=== PATIENT | male | born 1940 | race Caucasian/White ===

== ENCOUNTER 2017-04-30 12:35 | Emergency (ER) | payer MEDICARE, BC ==
[~2017-04-30] VITALS: Ht 182.9 cm; Wt 102.1 kg
[2017-04-30] MEDS ORDERED: DOXY100C2 PO (13:57)
[2017-04-30 14:00] VITALS: BP 130/66
--- NOTE | 2017-04-30 14:15 | PHYS DOC ---
Past History Past Medical History: CAD, COPD, Diabetes, Hypertension Past Surgical History: Coronary Bypass Surgery Alcohol Use: None Drug Use: None Adult General Chief Complaint Chief Complaint: INSECT BITE HPI HPI 77-year-old man presents with a lesion on his left forearm that his film printer thought could be Lyme's disease. Patient doesn't know if he was exposed to a tick Review of Systems Review of Systems Constitutional: Denies fever or chills [] Eyes: Denies change in visual acuity, redness, or eye pain [] HENT: Denies nasal congestion or sore throat [] Respiratory: Denies cough or shortness of breath [] Cardiovascular: No additional information not addressed in HPI [] GI: Denies abdominal pain, nausea, vomiting, bloody stools or diarrhea [] : Denies dysuria or hematuria [] Musculoskeletal: Denies back pain or joint pain [] Integument: Denies rash or skin lesions [] Neurologic: Denies headache, focal weakness or sensory changes [] Endocrine: Denies polyuria or polydipsia [] Allergies Allergies Allergies Coded Allergies Type Severity Reaction Last Updated Verified No Known Drug Allergies 04/30/17 No Physical Exam Physical Exam Constitutional: Well developed, well nourished, no acute distress, non-toxic appearance. [] HENT: Normocephalic, atraumatic, bilateral external ears normal, oropharynx moist, no oral exudates, nose normal. [] Eyes: PERRLA, EOMI, conjunctiva normal, no discharge. [] Neck: Normal range of motion, no tenderness, supple, no stridor. [] Cardiovascular:Heart rate regular rhythm, no murmur [] Lungs & Thorax: Bilateral breath sounds clear to auscultation [] Abdomen: Bowel sounds normal, soft, no tenderness, no masses, no pulsatile masses. [] Skin: Warm, dry, no erythema, there is a lesion on the left forearm of a circular ecchymotic area measuring about 2 cm and in the center there is a tiny crusted lesion [] Back: No tenderness, no CVA tenderness. [] Extremities: No tenderness, no cyanosis, no clubbing, ROM intact, no edema. [] Neurologic: Alert and oriented X 3, normal motor function, normal sensory function, no focal deficits noted. [] Psychologic: Affect normal, judgement normal, mood normal. [] Current Patient Data Vital Signs Vital Signs Date Time Temp Pulse Resp B/P (MAP) Pulse Ox O2 Delivery O2 Flow Rate FiO2 04/30/17 12:45 98.2 78 18 98 Room Air EKG EKG [] Radiology/Procedures Radiology/Procedures [] Impressions: Rash left forearm doubt very much if this represents Lyme's appears to be a crusted lesion with surrounding ecchymosis Course & Med Decision Making Course & Med Decision Making Patient will be started on doxycycline 100 by mouth twice a day instruction to follow up with a sales communications manager or his doctor in a week to check on the Lyme's titers that we obtained from the patient's blood [] Dragon Disclaimer Dragon Disclaimer This chart was dictated in whole or in part using Voice Recognition software in a busy, high-work load, and often noisy Emergency Department environment. It may contain unintended and wholly unrecognized errors or omissions. Departure Departure: Impression: Primary Impression: Rash Disposition: 01 HOME, SELF-CARE Condition: STABLE Patient Instructions: Insect Bite, [id number], Insect Bite, Lyme Disease Scripts Doxycycline Hyclate (DOXYCYCLINE HYCLATE) 100 Mg Capsule 1 CAP PO BID, #14 CAP Prov: NALINI GOODRICH MD 04/30/17 NALINI GOODRICH MD Apr 30, 2017 14:15
[2017-05-03 00:10] LABS: ROCK MTN SF IGG Negative (Negative); ROCKY MTN SF IGM 0.39 index (0.00-0.89)
== END 2017-04-30 14:14 | disposition home or self-care (01) ==
LOC: ER 12:35
DX: L98.8 Other specified disorders of the skin and subcutaneous tissue (principal); R21 Rash and other nonspecific skin eruption; I25.10 Atherosclerotic heart disease of native coronary artery without angina pectoris; E11.9 Type 2 diabetes mellitus without complications; I10 Essential (primary) hypertension; J44.9 Chronic obstructive pulmonary disease, unspecified
CPT/HCPCS: 36415; 86617; 86618; 86757; 99284

== ENCOUNTER → 2017-10-08 | Outpatient (CLI) | payer MEDICARE, BC ==
[~2017-10-08] MED LIST: DOXY100C2 PO
[2017-10-08 09:01] LABS: ALBUMIN 3.5 g/dL (3.4-5.0); ALBUMIN/GLOBULIN RATIO 0.9 (1.0-1.7); CREATININE 1.4 mg/dL (0.7-1.3); GFR 49.1; TOTAL BILIRUBIN 1.2 mg/dL (0.2-1.0); TOTAL PROTEIN 7.3 g/dL (6.4-8.2)
== END | disposition home or self-care (01) ==
LOC: LAB 08:23
PROVIDERS: ATTEND Nurse Practitioner
DX: E78.5 Hyperlipidemia, unspecified (principal); Z87.891 Personal history of nicotine dependence
CPT/HCPCS: 36415; 80053; 80061

== ENCOUNTER 2017-11-16 11:33 | Emergency (ER) | payer BC, MEDICARE, OTHER ==
[~2017-11-16] VITALS: Ht 182.9 cm; Wt 102.1 kg
--- NOTE | 2017-11-16 12:15 | EKG ---
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
--- NOTE | 2017-11-16 12:31 | PHYS DOC ---
Past History Past Medical History: CAD, COPD, Diabetes, Hypertension Past Surgical History: Coronary Bypass Surgery Alcohol Use: None Drug Use: None Adult General Chief Complaint Chief Complaint: MECHANICAL FALL HPI HPI Patient is a 77 year old M who presents with fall prior to arrival. Abdiel states that he overexerted himself taking in the groceries. In the past when he is overexerted himself he has become lightheaded with similar symptoms. He typically lays down for about half an hour and his symptoms resolved. Today he was on his way to lay down when he fell. His was present and states that he was unconscious for approximately 5 minutes. After he regained consciousness his symptoms had more or less resolved. He's had no intervention and he feels that his symptoms are at baseline. He does have some tenderness in his bottom but is ambulating well and feels that this is minimal Review of Systems Review of Systems Constitutional: Denies fever or chills [] Eyes: Denies change in visual acuity, redness, or eye pain [] HENT: Denies nasal congestion or sore throat [] Respiratory: Denies cough or shortness of breath [] Cardiovascular: No additional information not addressed in HPI [] GI: Denies abdominal pain, nausea, vomiting, bloody stools or diarrhea [] : Denies dysuria or hematuria [] Musculoskeletal: Negative except history of present illness Integument: Denies rash or skin lesions [] Neurologic: Denies headache, focal weakness or sensory changes [] Endocrine: Denies polyuria or polydipsia [] All other systems were reviewed and found to be within normal limits, except as documented in this note. Family History Family History No pertinent medical history was reported Current Medications Current Medications Current medications were reviewed Allergies Allergies Allergies Coded Allergies Type Severity Reaction Last Updated Verified No Known Drug Allergies 04/30/17 No Physical Exam Physical Exam Constitutional: Well developed, well nourished, no acute distress, non-toxic appearance. [] HENT: Normocephalic, atraumatic, bilateral external ears normal, oropharynx moist, no oral exudates, nose normal. [] Eyes: PERRLA, EOMI, conjunctiva normal, no discharge. [] Neck: Normal range of motion, no tenderness, supple, no stridor. [] Cardiovascular:Heart rate regular rhythm, Lungs & Thorax: Bilateral breath sounds clear to auscultation [] Abdomen: Bowel sounds normal, soft, no tenderness, no masses, no pulsatile masses. [] Skin: Warm, dry, no erythema, no rash. [] Back: No tenderness, no CVA tenderness. [] Extremities: No tenderness, no cyanosis, no clubbing, ROM intact, no edema. [] General Tenderness in the bottom Neurologic: Alert and oriented X 3, normal motor function, normal sensory function, no focal deficits noted. [] Psychologic: Affect normal, judgement normal, mood normal. [] Current Patient Data Vital Signs Vital Signs Date Time Temp Pulse Resp B/P (MAP) Pulse Ox O2 Delivery O2 Flow Rate FiO2 11/16/17 11:47 98.0 77 18 93 Room Air EKG EKG No interval changes noted on EKG. He does have a paced rhythm. Radiology/Procedures Radiology/Procedures No imaging was indicated Course & Med Decision Making Course & Med Decision Making Pertinent Labs and Imaging studies reviewed. (See chart for details) Manolo Fernández waste disposal leakage tester, was contacted by phone. His case was reviewed and no further workup or intervention was recommended. Dr. Sanders recommended the Abdiel follow-up in his office today for pacemaker interrogation. Dragon Disclaimer Dragon Disclaimer This electronic medical record was generated, in whole or in part, using a voice recognition dictation system. Departure Departure: Impression: Primary Impression: Contusion Disposition: 01 HOME, SELF-CARE Condition: STABLE Referrals: SHERRIE MCKINNEY MD (PCP) Patient Instructions: Fall Prevention and Home Safety Additional Instructions: Abdiel was seen in the emergency department for a fall related to syncopal episode. No emergency medical condition was found on history or physical exam. His EKG did not show changes from previous. Manolo Fernández waste disposal leakage tester, was contacted by phone. His case was reviewed and no further workup or intervention was recommended. Dr. Sanders recommended the Abdiel follow-up in his office today for pacemaker interrogation. He was given pain medication and advised that this may increase his risk for fall and constipation. He was advised to used pain medication with caution. He was also advised follow-up with his primary care doctor as needed for further management. Scripts Hydrocodone Bit/Acetaminophen (NORCO 5-325 TABLET) 1 Each Tablet 1 TAB PO TID for 3 Days, #9 TAB Prov: GUEVARA DIXON MD 11/16/17 Problem Qualifiers Primary Impression: Contusion Encounter type: initial encounter Contusion area: pelvic area Qualified Codes: S30.0XXA - Contusion of lower back and pelvis, initial encounter GUEVARA DIXON MD Nov 16, 2017 12:31
[2017-11-16] MEDS ORDERED: HYDR-971 PO (13:07)
[2017-11-16 13:16] VITALS: BP 120/52
[2017-11-16] MEDS ORDERED: HYDROcodone/APAP 5/325MG 1 TAB TABLET PO ONE (13:30)
== END 2017-11-16 13:23 | disposition home or self-care (01) ==
LOC: ER 11:33
DX: S30.0XXA Contusion of lower back and pelvis, initial encounter (principal); I10 Essential (primary) hypertension; E11.9 Type 2 diabetes mellitus without complications; J44.9 Chronic obstructive pulmonary disease, unspecified; I25.810 Atherosclerosis of coronary artery bypass graft(s) without angina pectoris; W19.XXXA Unspecified fall, initial encounter; Y93.89 Activity, other specified; Y99.8 Other external cause status; Y92.89 Other specified places as the place of occurrence of the external cause
CPT/HCPCS: 93005; 99283-25

== ENCOUNTER → 2018-08-05 | Outpatient (CLI) | payer MEDICARE ==
[~2018-08-05] MED LIST changes: +HYDR-971 PO
[2018-08-05 10:36] LABS: CALCIUM 8.7 mg/dL (8.5-10.1); CREATININE 1.7 mg/dL (0.7-1.3); GFR 39.2; POTASSIUM 3.7 mmol/L (3.5-5.1)
== END | disposition home or self-care (01) ==
LOC: LAB 09:23
PROVIDERS: ATTEND Nurse Practitioner
DX: I11.0 Hypertensive heart disease with heart failure (principal); I50.32 Chronic diastolic (congestive) heart failure; E11.9 Type 2 diabetes mellitus without complications
CPT/HCPCS: 36415; 80048; 83880

== ENCOUNTER → 2018-08-13 | Outpatient (CLI) | payer BC, MEDICARE ==
[2018-08-13 11:05] LABS: CALCIUM 9.1 mg/dL (8.5-10.1); CREATININE 1.5 mg/dL (0.7-1.3); GFR 45.3; POTASSIUM 3.5 mmol/L (3.5-5.1)
== END | disposition home or self-care (01) ==
LOC: LAB 10:31
PROVIDERS: ATTEND Nurse Practitioner
DX: I11.0 Hypertensive heart disease with heart failure (principal); I50.33 Acute on chronic diastolic (congestive) heart failure; E11.9 Type 2 diabetes mellitus without complications; Z87.891 Personal history of nicotine dependence
CPT/HCPCS: 36415; 80048; 83880

== ENCOUNTER 2018-12-19 09:35 | Emergency (ER) | payer MEDICARE ==
[~2018-12-19] VITALS: Ht 182.9 cm; Wt 98.3 kg
[~2018-12-19 09:35] MED LIST changes: +HYDR-3165 PO; -HYDR-971 PO
[2018-12-19 10:04] LABS: BASO % 0 % (0-3); EOS % 0 % (0-3); HEMATOCRIT 44.2 % (39.0-53.0); HEMOGLOBIN 14.4 g/dL (13.0-17.5); LYMPH # 0.4 x10^3/uL (1.0-4.8); LYMPH % 3 % (24-48); MEAN CORPUSCULAR HEMOGLOBIN 26 pg (25-35); MEAN CORPUSCULAR HGB CONC 33 g/dL (31-37); MEAN CORPUSCULAR VOLUME 79 fL (79-100); MONO # 2.3 x10^3/uL (0.0-1.1); MONO % 17 % (0-9); NEUT # 11.2 x10^3uL (1.8-7.7); NEUT % 80 % (31-73); PLATELET COUNT 129 x10^3/uL (140-400); RED BLOOD COUNT 5.58 x10^6/uL (4.30-5.70); RED CELL DISTRIBUTION WIDTH 16.9 % (11.5-14.5); WHITE BLOOD COUNT 13.9 x10^3/uL (4.0-11.0)
--- NOTE | 2018-12-19 10:13 | RAD ---
CHEST AP ONLY History: WEAKNESS Comparison: November 21, 2012 image, report not available FINDINGS: Pacemaker is identified. Cardiac silhouette is enlarged, accounting for difference in technique and inspiration roughly similar to previous exam. No evidence of pneumothorax. No large effusion. No focal airspace consolidation. Small right upper lobe pulmonary nodule is unchanged. IMPRESSION: Cardiac silhouette enlargement is again seen. No focal consolidating infiltrate. Electronically signed by: Tony Moore MD (12/19/2018 10:10 AM) [facility]
[2018-12-19 10:19] LABS: ALBUMIN 2.7 g/dL (3.4-5.0); ALBUMIN/GLOBULIN RATIO 0.6 (1.0-1.7); CALCIUM 8.4 mg/dL (8.5-10.1); CREATININE 1.8 mg/dL (0.7-1.3); GFR 36.7; POTASSIUM 3.6 mmol/L (3.5-5.1); TOTAL BILIRUBIN 2.8 mg/dL (0.2-1.0)
[2018-12-19] MEDS ORDERED: IV NORMAL SALINE 1,000ML 1,000 ML IV ONE (10:45)
[2018-12-19] MEDS ORDERED: ONDANSETRON PF 4 MG/2 ML VIAL. IV ONE (10:45)
--- NOTE | 2018-12-19 11:21 | PHYS DOC ---
Past History Past Medical History: CAD, COPD, Diabetes, High Cholesterol, Hypertension Past Surgical History: Coronary Bypass Surgery, Pacemaker Alcohol Use: None Drug Use: None Adult General Chief Complaint Chief Complaint: WEAKNESS/GENERALIZED HPI HPI 70-year-old male presents from home with generalized weakness. The patient states that today he just didn't have enough strength to get out of the bathtub or even to get himself fully up out of his recliner. This is unusual for him as he is generally an active person. The patient has had vomiting and loose stool for the last 2-3 days. He has attempted to stay hydrated, but most the time when he eats or drinks something it makes him vomit. He denies fever or chills. He has not had any falls or trauma. Review of Systems Review of Systems Constitutional: Denies fever or chills [] Eyes: Denies change in visual acuity, redness, or eye pain [] HENT: Denies nasal congestion or sore throat [] Respiratory: Denies cough or shortness of breath [] Cardiovascular: No additional information not addressed in HPI [] GI: Denies abdominal pain, nausea, vomiting, bloody stools or diarrhea [] : Denies dysuria or hematuria [] Musculoskeletal: Denies back pain or joint pain [] Integument: Denies rash or skin lesions [] Neurologic: Denies headache, focal weakness or sensory changes [] Endocrine: Denies polyuria or polydipsia [] All other systems were reviewed and found to be within normal limits, except as documented in this note. Current Medications Current Medications Current Medications Medications (Trade) Dose Ordered Sig/[facility] Start Time Stop Time Status Last Admin Dose Admin Ondansetron HCl (Zofran) 4 mg 1X ONCE 12/19/18 10:45 12/19/18 10:48 DC 12/19/18 10:44 4 MG Sodium Chloride 1,000 ml @ 1,000 mls/hr 1X ONCE 12/19/18 10:45 12/19/18 11:44 12/19/18 10:45 1,000 MLS/HR Allergies Allergies Allergies Coded Allergies Type Severity Reaction Last Updated Verified No Known Drug Allergies 12/19/18 No Physical Exam Physical Exam Constitutional: Well developed, well nourished, no acute distress, non-toxic appearance. [] HENT: Normocephalic, atraumatic, bilateral external ears normal, oropharynx dry , no oral exudates, nose normal. [] Eyes: PERRLA, EOMI, conjunctiva normal, no discharge. [] Neck: Normal range of motion, no tenderness, supple, no stridor. [] Cardiovascular:Heart rate irregular rhythm, 2/6 systolic murmur[] Lungs & Thorax: Bilateral breath sounds clear to auscultation [] Abdomen: Bowel sounds normal, soft, no tenderness, no masses, no pulsatile masses. [] Skin: Warm, dry, no erythema, no rash. [] Back: No tenderness, no CVA tenderness. [] Extremities: No tenderness, no cyanosis, no clubbing, ROM intact, no edema. [] Neurologic: Alert and oriented X 3, normal motor function, normal sensory function, no focal deficits noted. [] Psychologic: Affect normal, judgement normal, mood normal. [] Current Patient Data Vital Signs Vital Signs Date Time Temp Pulse Resp B/P (MAP) Pulse Ox O2 Delivery O2 Flow Rate FiO2 12/19/18 10:30 96 18 138/79 (98) 96 Room Air 12/19/18 09:39 97.7 Lab Results Laboratory Tests Test 12/19/18 09:54 White Blood Count 13.9 x10^3/uL (4.0-11.0) H Red Blood Count 5.58 x10^6/uL (4.30-5.70) Hemoglobin 14.4 g/dL (13.0-17.5) Hematocrit 44.2 % (39.0-53.0) Mean Corpuscular Volume 79 fL (79-100) Mean Corpuscular Hemoglobin 26 pg (25-35) Mean Corpuscular Hemoglobin Concent 33 g/dL (31-37) Red Cell Distribution Width 16.9 % (11.5-14.5) H Platelet Count 129 x10^3/uL (140-400) L Neutrophils (%) (Auto) 80 % (31-73) H Lymphocytes (%) (Auto) 3 % (24-48) L Monocytes (%) (Auto) 17 % (0-9) H Eosinophils (%) (Auto) 0 % (0-3) Basophils (%) (Auto) 0 % (0-3) Neutrophils # (Auto) 11.2 x10^3uL (1.8-7.7) H Lymphocytes # (Auto) 0.4 x10^3/uL (1.0-4.8) L Monocytes # (Auto) 2.3 x10^3/uL (0.0-1.1) H Eosinophils # (Auto) 0.0 x10^3/uL (0.0-0.7) Basophils # (Auto) 0.0 x10^3/uL (0.0-0.2) Sodium Level 127 mmol/L (136-145) L Potassium Level 3.6 mmol/L (3.5-5.1) Chloride Level 93 mmol/L (98-107) L Carbon Dioxide Level 26 mmol/L (21-32) Anion Gap 8 (6-14) Blood Urea Nitrogen 31 mg/dL (8-26) H Creatinine 1.8 mg/dL (0.7-1.3) H Estimated GFR (Cockcroft-Gault) 36.7 BUN/Creatinine Ratio 17 (6-20) Glucose Level 188 mg/dL (70-99) H Calcium Level 8.4 mg/dL (8.5-10.1) L Total Bilirubin 2.8 mg/dL (0.2-1.0) H Aspartate Amino Transferase (AST) 23 U/L (15-37) Alanine Aminotransferase (ALT) 20 U/L (16-63) Alkaline Phosphatase 188 U/L (46-116) H Troponin I Quantitative < 0.017 ng/mL (0-0.055) Total Protein 7.0 g/dL (6.4-8.2) Albumin 2.7 g/dL (3.4-5.0) L Albumin/Globulin Ratio 0.6 (1.0-1.7) L EKG EKG Irregular rhythm, rate 106, normal axis, no ST elevation or depression.[] Radiology/Procedures Radiology/Procedures [] Impressions: CHEST AP ONLY History: WEAKNESS Comparison: November 21, 2012 image, report not available FINDINGS: Pacemaker is identified. Cardiac silhouette is enlarged, accounting for difference in technique and inspiration roughly similar to previous exam. No evidence of pneumothorax. No large effusion. No focal airspace consolidation. Small right upper lobe pulmonary nodule is unchanged. IMPRESSION: Cardiac silhouette enlargement is again seen. No focal consolidating infiltrate. Electronically signed by: Damian Moore MD (12/19/2018 10:10 AM) [facility] DICTATED AND SIGNED BY: DAMIAN MOORE MD DATE: 12/19/18 1009 CC: YOMAIRA HATCH DO; SHERRIE MCKINNEY MD Course & Med Decision Making Course & Med Decision Making Pertinent Labs and Imaging studies reviewed. (See chart for details) The patient's labs are significant for slightly low sodium and an elevated creatinine of 1.8. I reviewed his chart shows he has had elevated creatinines of 1.7 in the past. He does appear clinically dehydrated despite given him 1 L normal saline. His chest x-ray is unremarkable. His troponin is negative. His EKG is unremarkable. His urinalysis is negative for infection. He is excreting glucose in his urine and his blood sugar 188. I do not have a clear indication to admit the patient. We will get him up and make sure she is strong enough to take care of himself at home. The patient is able to ambulate with a cane which is his normal baseline. He is feeling better at this time. I will discharge him with Zofran ODT. He is stable for discharge at this time. [] Dragon Disclaimer Dragon Disclaimer This electronic medical record was generated, in whole or in part, using a voice recognition dictation system. Departure Departure: Impression: Primary Impression: Generalized weakness Additional Impressions: Hyponatremia Vomiting Dehydration Disposition: 01 HOME, SELF-CARE Condition: IMPROVED Referrals: SHERRIE MCKINNEY MD (PCP) Patient Instructions: Nausea and Vomiting, [id number] Scripts Ondansetron (ONDANSETRON ODT) 4 Mg Tab.rapdis 1 TAB PO PRN Q6-8HRS PRN for VOMITING, #16 TAB Prov: YOMAIRA HATCH DO 12/19/18 Problem Qualifiers Additional Impressions: Vomiting Vomiting type: unspecified Vomiting Intractability: non-intractable Nausea presence: with nausea Qualified Codes: R11.2 - Nausea with vomiting, unspecified YOMAIRA HATCH DO Dec 19, 2018 11:21
[2018-12-19 11:30] VITALS: BP 142/72
[2018-12-19 12:36] LABS: CLARITY,URINE HAZY; COLOR,URINE YELLOW
[2018-12-19 12:37] LABS: BACTERIA,URINE 0 /HPF (0-FEW); BILIRUBIN,URINE NEG (NEG); GLUCOSE,URINE >=1000 mg/dL (NEG); NITRITE,URINE NEG (NEG); RBC,URINE OCC /HPF (0-2); SQUAMOUS EPITHELIAL CELL,UR OCC /LPF; UROBILINOGEN,URINE 1 mg/dL (0.2 mg/dL); WBC,URINE OCC /HPF (0-4)
[2018-12-19 12:38] LABS: YEAST,URINE PRESENT /HPF
[2018-12-19] MEDS ORDERED: ONDA4TAB12 PO (12:52)
--- NOTE | 2018-12-20 06:33 | EKG ---
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
[2019-02-10] MEDS ORDERED: VANC125C3 PO (12:24)
[2019-02-10] MEDS ORDERED: DRON5CAP2 PO (12:24)
== END 2018-12-19 12:56 | disposition home or self-care (01) ==
LOC: ER 09:35
DX: E87.1 Hypo-osmolality and hyponatremia (principal); R53.1 Weakness; E86.0 Dehydration; I25.810 Atherosclerosis of coronary artery bypass graft(s) without angina pectoris; J44.9 Chronic obstructive pulmonary disease, unspecified; E11.9 Type 2 diabetes mellitus without complications; E78.00 Pure hypercholesterolemia, unspecified; I10 Essential (primary) hypertension; Z95.0 Presence of cardiac pacemaker
CPT/HCPCS: 36415; 71045; 80053; 81001; 84484; 85025; 93005; 96361; 96374; 99284; J2405; J7030

== ENCOUNTER 2019-01-13 15:40 | Observation (INO) | payer MEDICARE ==
[~2019-01-13] VITALS: Ht 182.9 cm; Wt 98.0 kg
[~2019-01-13 15:40] MED LIST changes: +ONDA4TAB12 PO
--- NOTE | 2019-01-13 16:22 | RAD ---
EXAM: Chest, single view. HISTORY: Weakness. COMPARISON: 12/19/2018. FINDINGS: A frontal view of the chest is obtained. There is no infiltrate, pleural effusion or pneumothorax. There is stable cardiomegaly. There is evidence of prior CABG and cardiac pacemaker placement. There are few calcified granulomas. IMPRESSION: 1. Stable cardiomegaly. 2. No acute pulmonary finding. Electronically signed by: Ijeoma Colon MD (01/13/2019 4:19 PM) [facility]
[2019-01-13 16:44] LABS: BASO # 0.1 x10^3/uL (0.0-0.2); BASO % 1 % (0-3); EOS % 0 % (0-3); HEMATOCRIT 41.2 % (39.0-53.0); HEMOGLOBIN 13.2 g/dL (13.0-17.5); LYMPH # 0.7 x10^3/uL (1.0-4.8); LYMPH % 5 % (24-48); MEAN CORPUSCULAR HEMOGLOBIN 26 pg (25-35); MEAN CORPUSCULAR HGB CONC 32 g/dL (31-37); MEAN CORPUSCULAR VOLUME 80 fL (79-100); MONO # 1.7 x10^3/uL (0.0-1.1); MONO % 13 % (0-9); NEUT % 82 % (31-73); PLATELET COUNT 104 x10^3/uL (140-400); RED BLOOD COUNT 5.15 x10^6/uL (4.30-5.70); RED CELL DISTRIBUTION WIDTH 17.6 % (11.5-14.5); WHITE BLOOD COUNT 13.5 x10^3/uL (4.0-11.0)
--- NOTE | 2019-01-13 16:53 | EKG ---
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
[2019-01-13 17:01] LABS: INFLUENZA A PATIENT NEGATIVE (NEGATIVE); INFLUENZA B PATIENT NEGATIVE (NEGATIVE)
--- NOTE | 2019-01-13 17:02 | PHYS DOC ---
Past History Past Medical History: CAD, COPD, Diabetes, High Cholesterol, Hypertension (SEBASTIEN BOYLE MD) Past Surgical History: Coronary Bypass Surgery, Pacemaker (SEBASTIEN BOYLE MD) Alcohol Use: None Drug Use: None (SEBASTIEN BOYLE MD) Adult General Chief Complaint Chief Complaint: WEAKNESS/GENERALIZED HPI HPI Patient is a 78 year old male who presents with complaining of generalized weakness. Patient states since yesterday he didn't feel good and had generalized weakness and unable to get out of the bed loss of appetite. Patient states he vomited couple times without diarrhea or urinary problem. Patient complaining of sore throat without abdominal pain, chest pain, shortness of breath, fever and chills, focal neuro deficit. Patient states he had the same problem previously with diagnosis of dehydration. (SEBASTIEN BOYLE MD) Review of Systems Review of Systems Constitutional: Denies fever or chills [] Eyes: Denies change in visual acuity, redness, or eye pain [] HENT: Denies nasal congestion or sore throat [] Respiratory: Denies cough or shortness of breath [] Cardiovascular: No additional information not addressed in HPI [] GI: Denies abdominal pain, bloody stools or diarrhea, reports nausea and vomiting [] : Denies dysuria or hematuria [] Musculoskeletal: Denies back pain or joint pain [] Integument: Denies rash or skin lesions [] Neurologic: Denies headache, focal weakness or sensory changes, reports generalized weakness [] Endocrine: Denies polyuria or polydipsia [] All other systems were reviewed and found to be within normal limits, except as documented in this note. (SEBASTIEN BOYLE MD) Allergies Allergies Allergies Coded Allergies Type Severity Reaction Last Updated Verified No Known Drug Allergies 01/13/19 No (SEBASTIEN BOYLE MD) Physical Exam Physical Exam Constitutional: Well developed, mild distress, non-toxic appearance. [] HENT: Normocephalic, atraumatic, oropharynx dry, no oral exudates, nose normal. [] Eyes: PERRLA, EOMI, conjunctiva normal, no discharge, mild jaundice. [] Neck: Normal range of motion, no tenderness, supple, no stridor. [] Cardiovascular:Heart rate regular rhythm, no murmur [] Lungs & Thorax: Bilateral breath sounds clear to auscultation [] Abdomen: Bowel sounds normal, soft, no tenderness, no masses, no pulsatile masses. [] Skin: Warm, dry, no erythema, no rash. [] Back: No tenderness, no CVA tenderness. [] Extremities: No tenderness, no cyanosis, no clubbing, ROM intact, 1+ bilateral lower extremity edema. [] Neurologic: Alert and oriented X 3, normal motor function, normal sensory function, no focal deficits noted. [] Psychologic: Affect normal, judgement normal, mood normal. [] (SEBASTIEN BOYLE MD) Current Patient Data Vital Signs Vital Signs Date Time Temp Pulse Resp B/P (MAP) Pulse Ox O2 Delivery O2 Flow Rate FiO2 01/13/19 15:54 98.5 74 24 97 Room Air Lab Results Laboratory Tests Test 01/13/19 16:15 White Blood Count 13.5 x10^3/uL (4.0-11.0) H Red Blood Count 5.15 x10^6/uL (4.30-5.70) Hemoglobin 13.2 g/dL (13.0-17.5) Hematocrit 41.2 % (39.0-53.0) Mean Corpuscular Volume 80 fL (79-100) Mean Corpuscular Hemoglobin 26 pg (25-35) Mean Corpuscular Hemoglobin Concent 32 g/dL (31-37) Red Cell Distribution Width 17.6 % (11.5-14.5) H Platelet Count 104 x10^3/uL (140-400) L Neutrophils (%) (Auto) 82 % (31-73) H Lymphocytes (%) (Auto) 5 % (24-48) L Monocytes (%) (Auto) 13 % (0-9) H Eosinophils (%) (Auto) 0 % (0-3) Basophils (%) (Auto) 1 % (0-3) Neutrophils # (Auto) 11.0 x10^3uL (1.8-7.7) H Lymphocytes # (Auto) 0.7 x10^3/uL (1.0-4.8) L Monocytes # (Auto) 1.7 x10^3/uL (0.0-1.1) H Eosinophils # (Auto) 0.0 x10^3/uL (0.0-0.7) Basophils # (Auto) 0.1 x10^3/uL (0.0-0.2) (SEBASTIEN BOYLE MD) EKG EKG EKG interpreted by me. EKG at 1532 showed sinus rhythm with prolonged CO at444, left atrial abnormalities, abnormal right axis deviation, non-specific intraventricular block, poor R-wave progress in anteroseptal leads, PVCs: No acute ST and T-wave abnormalities (SEBASTIEN BOYLE MD) Radiology/Procedures Radiology/Procedures [address] [address] IMAGING REPORT Signed PATIENT: RACHAEL RAGLAND ACCOUNT: [id number] : 1940 LOCATION: ER AGE: 78 SEX: M EXAM STATUS: REG ER ORD. PHYSICIAN: SEBASTIEN BOYLE MD REASON: generalized weakness PROCEDURE: PORTABLE CHEST 1V EXAM: Chest, single view. HISTORY: Weakness. COMPARISON: 12/19/2018. FINDINGS: A frontal view of the chest is obtained. There is no infiltrate, pleural effusion or pneumothorax. There is stable cardiomegaly. There is evidence of prior CABG and cardiac pacemaker placement. There are few calcified granulomas. IMPRESSION: 1. Stable cardiomegaly. 2. No acute pulmonary finding. Electronically signed by: Ijeoma Christian MD (01/13/2019 4:19 PM) [id number] DICTATED AND SIGNED BY: IJEOMA CHRISTIAN MD DATE: 01/13/19 1854 CC: SEBASTIEN BOYLE MD; SHERRIE MCKINNEY MD ~ (SEBASTIEN BOYLE MD) Course & Med Decision Making Course & Med Decision Making Pertinent Labs and Imaging studies reviewed. (See chart for details) Evaluation of patient in ER showed 78-year-old male patient with complaining of generalized weakness since yesterday with episodes of nausea and vomiting. Patient had unremarkable labs except for chronic renal insufficiency like his previous lab and elevation of BNP. Patient had bilirubin of 3.5. Gallbladder ultrasound is pending. Patient care transferred to Dr. Aburto at 1800. (SEBASTIEN BOYLE MD) Course & Med Decision Making US= Sludge, stone and thicken gall bladder wall. See formal report when available. Impression: 1. Nausea 2. Weakness 3. Leukocytosis 13.5 4. Thrombocytopenia 104 5. Hyponatremia 131 6. Diabetes 243 7. Elevated bilirubin and alkaline phosphatase- 3.5/176 8. Malnutrition Albumin 3.0 9. CHF and diastolic dysfunction BNP 4521 10. Sleep Apnea 11. Elevated Creat. 1.8 12. Biliary colic and sludge and stones- suspect early cholangitis Pt. to be admitted to Dr. Collins for further tx. and evaluation. May need transfer if developed increase Rt. upper quadrant pain. At time of admit pt. without pain in Rt.upper quadrant. (FIDELIA ABURTO MD) Dragon Disclaimer Dragon Disclaimer This electronic medical record was generated, in whole or in part, using a voice recognition dictation system. (SEBASTIEN BOYLE MD) Departure Departure: Impression: Primary Impression: Generalized weakness Additional Impressions: Chronic renal insufficiency Chronic congestive heart failure Hyperbilirubinemia Condition: STABLE Referrals: SHERRIE MCKINNEY MD (PCP) Dragon Disclaimer This chart was dictated in whole or in part using Voice Recognition software in a busy, high-work load, and often noisy Emergency Department environment. It may contain unintended and wholly unrecognized errors or omissions. (FIDELIA ABURTO MD) Discharge Summary Visit Information Final Diagnosis Problems Medical Problems: (1) Chronic congestive heart failure Status: Acute (2) Chronic renal insufficiency Status: Acute (3) Generalized weakness Status: Acute (4) Hyperbilirubinemia Status: Acute (FIDELIA ABURTO MD) Brief Hospital Course Allergies Allergies Coded Allergies Type Severity Reaction Last Updated Verified No Known Drug Allergies 01/13/19 No Vital Signs Vital Signs Date Time Temp Pulse Resp B/P (MAP) Pulse Ox O2 Delivery O2 Flow Rate FiO2 01/14/19 00:02 Room Air 01/13/19 22:30 98.4 74 22 134/59 (84) 91 Lab Results Laboratory Tests Test 01/13/19 16:15 01/13/19 18:14 White Blood Count 13.5 x10^3/uL (4.0-11.0) Red Blood Count 5.15 x10^6/uL (4.30-5.70) Hemoglobin 13.2 g/dL (13.0-17.5) Hematocrit 41.2 % (39.0-53.0) Mean Corpuscular Volume 80 fL (79-100) Mean Corpuscular Hemoglobin 26 pg (25-35) Mean Corpuscular Hemoglobin Concent 32 g/dL (31-37) Red Cell Distribution Width 17.6 % (11.5-14.5) Platelet Count 104 x10^3/uL (140-400) Neutrophils (%) (Auto) 82 % (31-73) Lymphocytes (%) (Auto) 5 % (24-48) Monocytes (%) (Auto) 13 % (0-9) Eosinophils (%) (Auto) 0 % (0-3) Basophils (%) (Auto) 1 % (0-3) Neutrophils # (Auto) 11.0 x10^3uL (1.8-7.7) Lymphocytes # (Auto) 0.7 x10^3/uL (1.0-4.8) Monocytes # (Auto) 1.7 x10^3/uL (0.0-1.1) Eosinophils # (Auto) 0.0 x10^3/uL (0.0-0.7) Basophils # (Auto) 0.1 x10^3/uL (0.0-0.2) Sodium Level 131 mmol/L (136-145) Potassium Level 4.2 mmol/L (3.5-5.1) Chloride Level 96 mmol/L (98-107) Carbon Dioxide Level 25 mmol/L (21-32) Anion Gap 10 (6-14) Blood Urea Nitrogen 23 mg/dL (8-26) Creatinine 1.5 mg/dL (0.7-1.3) Estimated GFR (Cockcroft-Gault) 45.3 BUN/Creatinine Ratio 15 (6-20) Glucose Level 243 mg/dL (70-99) Lactic Acid Level 1.8 mmol/L (0.4-2.0) Calcium Level 8.5 mg/dL (8.5-10.1) Magnesium Level 2.1 mg/dL (1.8-2.4) Total Bilirubin 3.5 mg/dL (0.2-1.0) Aspartate Amino Transf (AST/SGOT) 27 U/L (15-37) Alanine Aminotransferase (ALT/SGPT) 32 U/L (16-63) Alkaline Phosphatase 176 U/L (46-116) Creatine Kinase 26 U/L (39-308) Troponin I Quantitative < 0.017 ng/mL (0-0.055) CL-Ydr-V-Type Natriuretic Peptide 4521 pg/mL (0-449) Total Protein 7.1 g/dL (6.4-8.2) Albumin 3.0 g/dL (3.4-5.0) Albumin/Globulin Ratio 0.7 (1.0-1.7) Lipase 156 U/L (73-393) Influenza Type A (Rapid) Negative (NEGATIVE) Influenza Type B (Rapid) Negative (NEGATIVE) Urine Collection Type Void Urine Color Elsa Urine Clarity Clear Urine pH 5.5 Urine Specific Jasper <=1.005 Urine Protein 30 mg/dl (NEG-TRACE) Urine Glucose (UA) >=1000 mg/dL (NEG) Urine Ketones (Stick) Neg mg/dL (NEG) Urine Blood Small (NEG) Urine Nitrite Neg (NEG) Urine Bilirubin Neg (NEG) Urine Urobilinogen Dipstick 1 mg/dL (0.2 mg/dL) Urine Leukocyte Esterase Neg (NEG) Urine RBC 1-2 /HPF (0-2) Urine WBC Occ /HPF (0-4) Urine Squamous Epithelial Cells Few /LPF Urine Bacteria 0 /HPF (0-FEW) Urine Mucus Slight /LPF Brief Hospital Course Mr. Ragland is a 78 old male who presented with primary complaint of weakness. Admitted to Dr. Collins (FIDELIA ABURTO MD) Discharge Information Condition at Discharge: Improved Dischare Medications Current Medications Sodium Chloride 500 ml @ 0 mls/hr 1X ONCE IV Last administered on 01/13/19at 18 :00; Start 01/13/19 at 18:00; Stop 01/13/19 at 18:01; Status DC Ondansetron HCl (Zofran) 4 mg 1X ONCE IV Last administered on 01/13/19at 18:12 ; Start 01/13/19 at 18:00; Stop 01/13/19 at 18:01; Status DC Ondansetron HCl (Zofran) 4 mg PRN Q4HRS PRN IV NAUSEA/VOMITING; Start 01/13/19 at 20:00; Stop 01/14/19 at 19:59 Morphine Sulfate (Morphine 2mg Syringe) 2 mg PRN Q2HR PRN IV PAIN; Start at 20:00; Stop 01/14/19 at 19:59 Albuterol/ Ipratropium (Duoneb) 3 ml RTQID NEB ; Start 01/13/19 at 20:00; Stop 01/14/19 at 19:59 Furosemide (Lasix) 40 mg BID IVP Last administered on 01/14/19at 00:38; Start at 21:00 Ceftriaxone Sodium 1 gm/ Sodium Chloride 50 ml @ 100 mls/hr DAILY IV ; Start at 09:00 Metronidazole 100 ml @ 100 mls/hr Q8HRS IV Last administered on 01/14/19at 00: 41; Start 01/13/19 at 22:00 Active Scripts Active Reported Cardizem Cd (Diltiazem Hcl) 180 Mg Cap.er.24h 1 Cap PO DAILY Eliquis (Apixaban) 5 Mg Tablet 5 Mg PO BID Torsemide 20 Mg Tablet 20 Mg PO BID Invokana (Canagliflozin) 100 Mg Tablet 100 Mg PO DAILY Lisinopril 5 Mg Tablet 1 Tab PO DAILY Tradjenta (Linagliptin) 5 Mg Tablet 1 Tab PO DAILY Potassium Chloride 10 Meq Tablet.er 20 Meq PO DAILY Atorvastatin Calcium 40 Mg Tablet 1 Tab PO DAILY Bystolic (Nebivolol Hcl) 10 Mg Tablet 1 Tab PO DAILY (FIDELIA ABURTO MD) Problem Qualifiers SEBASTIEN BOYLE MD Jan 13, 2019 17:02 FIDELIA ABURTO MD Jan 13, 2019 21:01
[2019-01-13 17:29] LABS: ALBUMIN/GLOBULIN RATIO 0.7 (1.0-1.7); CALCIUM 8.5 mg/dL (8.5-10.1); CREATININE 1.5 mg/dL (0.7-1.3); GFR 45.3; MAGNESIUM 2.1 mg/dL (1.8-2.4); POTASSIUM 4.2 mmol/L (3.5-5.1); TOTAL BILIRUBIN 3.5 mg/dL (0.2-1.0); TOTAL PROTEIN 7.1 g/dL (6.4-8.2)
[2019-01-13] MEDS ORDERED: IV NORMAL SALINE 500ML 500 ML IV ONE (18:00)
[2019-01-13] MEDS ORDERED: ONDANSETRON PF 4 MG/2 ML VIAL. IV ONE (18:00)
[2019-01-13 18:48] LABS: BILIRUBIN,URINE NEG (NEG); CLARITY,URINE CLEAR; COLOR,URINE AMBER; GLUCOSE,URINE >=1000 mg/dL (NEG)
[2019-01-13 18:49] LABS: BACTERIA,URINE 0 /HPF (0-FEW); NITRITE,URINE NEG (NEG); SQUAMOUS EPITHELIAL CELL,UR FEW /LPF; UROBILINOGEN,URINE 1 mg/dL (0.2 mg/dL); WBC,URINE OCC /HPF (0-4)
[2019-01-13] MEDS ORDERED: MORPHINE SULFATE 2 MG/ML DISP.SYRIN. IV PRN (20:00)
[2019-01-13] MEDS: IPRATRPIUM/ALBUTEROL 0.5/2.5MG 3 ML NEBU. NEB SCH (20:00)
[2019-01-13] MEDS ORDERED: ONDANSETRON PF 4 MG/2 ML VIAL. IV PRN (20:00)
--- NOTE | 2019-01-13 20:12 | RAD ---
Limited abdomen ultrasound study the right upper quadrant Clinical indications: Weakness. Elevated bilirubin. FINDINGS: The pancreas is obscured due to overlying bowel gas. No focal hepatic mass is seen. There is diffuse attenuation of sound throughout the liver however which may decrease the sensitivity of sonography to detect focal hepatic lesions. This is secondary to fatty infiltration of the liver. Liver is mildly enlarged measuring 18.4 cm in length. The gallbladder wall measures up to 4.4 mm in thickness which is mildly thickened. Gallstones and biliary sludge are seen within the gallbladder. The extra hepatic bile duct measures 5 mm mm in caliber which is normal. The length of the right kidney is 11.1 cm. No hydronephrosis or renal mass or perinephric fluid collection is seen on the right side IMPRESSION: Cholelithiasis. Gallbladder wall thickening which may be seen with cholecystitis. Hepatomegaly. Fatty infiltration of the liver. Electronically signed by: Junior Escalante MD (01/13/2019 8:09 PM) [facility]
[2019-01-13 22:30] VITALS: BP 134/59
[2019-01-14] MEDS: FUROSEMIDE 40 MG/4 ML VIAL IVP SCH ×2 (00:38→09:55)
[2019-01-14] MEDS ORDERED: DILT180C2 PO (01:20)
[2019-01-14] MEDS ORDERED: LINA5TAB4 PO (01:20)
[2019-01-14] MEDS ORDERED: CANA100T PO (01:20)
[2019-01-14] MEDS ORDERED: ATOR40TA59 PO (01:20)
[2019-01-14] MEDS ORDERED: APIX5TAB3 PO (01:20)
[2019-01-14] MEDS ORDERED: POTA10TA10 PO (01:20)
[2019-01-14] MEDS ORDERED: NEBI10TA3 PO (01:20)
[2019-01-14] MEDS ORDERED: TORS20TA2 PO (01:20)
[2019-01-14] MEDS ORDERED: LISI-338 PO (01:20)
[2019-01-14 05:23] VITALS: BP 103/52
[2019-01-14 10:35] LABS: BASO # 0.1 x10^3/uL (0.0-0.2); BASO % 1 % (0-3); EOS # 0.1 x10^3/uL (0.0-0.7); EOS % 1 % (0-3); HEMATOCRIT 38.4 % (39.0-53.0); HEMOGLOBIN 12.5 g/dL (13.0-17.5); LYMPH # 0.7 x10^3/uL (1.0-4.8); LYMPH % 8 % (24-48); MEAN CORPUSCULAR HEMOGLOBIN 26 pg (25-35); MEAN CORPUSCULAR HGB CONC 33 g/dL (31-37); MEAN CORPUSCULAR VOLUME 80 fL (79-100); MONO # 1.3 x10^3/uL (0.0-1.1); MONO % 13 % (0-9); NEUT # 7.5 x10^3uL (1.8-7.7); NEUT % 78 % (31-73); PLATELET COUNT 88 x10^3/uL (140-400); RED BLOOD COUNT 4.82 x10^6/uL (4.30-5.70); RED CELL DISTRIBUTION WIDTH 17.3 % (11.5-14.5); WHITE BLOOD COUNT 9.6 x10^3/uL (4.0-11.0)
[2019-01-14 10:55] LABS: ALBUMIN 2.5 g/dL (3.4-5.0); ALBUMIN/GLOBULIN RATIO 0.7 (1.0-1.7); CALCIUM 8.4 mg/dL (8.5-10.1); CREATININE 1.5 mg/dL (0.7-1.3); GFR 45.3; POTASSIUM 4.3 mmol/L (3.5-5.1); TOTAL BILIRUBIN 2.5 mg/dL (0.2-1.0); TOTAL PROTEIN 6.3 g/dL (6.4-8.2)
[2019-01-14 11:07] VITALS: BP 132/68
--- NOTE | 2019-01-14 11:40 | HP ---
ADMIT DATE: 01/13/2019 HISTORY OF PRESENT ILLNESS: The patient is a 78-year-old male patient who came to the Emergency Room complaining of weakness that is generalized, has been feeling dizzy, lightheaded, shortness of breath, has had multiple episodes of nausea and vomiting without any diarrhea; however, he denied any abdominal pain, chest pain. Denied any fevers, chills; was evaluated in the Emergency Room with weakness and he was diagnosed with cholestatic jaundice with elevated bilirubin, alkaline phosphatase, mild hyponatremia, thrombocytopenia, and was admitted for further evaluation and treatment. PAST MEDICAL HISTORY: Significant for atrial fibrillation, type 2 diabetes mellitus, hypertension, hyperlipidemia, coronary artery disease, status post myocardial infarction, status post coronary artery bypass graft surgery. He is known to have COPD and obstructive sleep apnea, on CPAP. He stated that he was admitted before with dehydration. PAST SURGICAL HISTORY: Significant for coronary artery bypass graft surgery, permanent pacemaker implantation, bilateral cataract extraction, has had also a screening colonoscopy. ALLERGIES: He has no known drug allergies. MEDICATIONS: He is currently on following medications: He is on apixaban 5 mg twice a day, atorvastatin calcium 40 mg at bedtime, nebivolol for Bystolic 10 mg once a day, diltiazem 180 mg daily, lisinopril 5 mg once a day, potassium chloride 20 mEq once a day, torsemide 20 mg twice a day, linagliptin for Tradjenta 5 mg once a day, Invokana 100 mg once a day. FAMILY HISTORY: He has 5 brothers and 5 sisters; 2 brothers are , both older, one because of advanced COPD and the other because of coronary artery disease. All of his sisters and brothers have atrial fibrillation. His father at the age of 72 because of COPD. Mother at the age of 90. SOCIAL HISTORY: He is , has 3 daughters of his own and has a stepdaughter and a stepson from his ; one of his biological daughters is . He quit smoking in 1994. He does not drink alcohol or recreational drugs. He retired from [email or web address] after working there for 43 years. REVIEW OF SYSTEMS: The patient denied any blurring of vision. He has bilateral cataract extraction, but denied any glaucoma or macular degeneration. Denied any earache, tinnitus or sensorineural deafness. Denied any nosebleeds, stuffy nose or postnasal drip. Denied any sore throat, sore tongue, toothache, hoarseness of voice. Denied any nausea, vomiting, diarrhea or constipation. Denied any hematemesis, melena or hematochezia. Denied any dysuria, frequency or hematuria. He complained of shortness of breath, but denied any orthopnea or paroxysmal nocturnal dyspnea. Denied any cough, phlegm or hemoptysis. Denied any chills, rigors or fever. PHYSICAL EXAMINATION: GENERAL: On arrival to the Emergency Room, he apparently was slightly pale, but no jaundice, cyanosis, or thyromegaly. No jugular venous distension. Mild bilateral limb edema. VITAL SIGNS: His heart rate was 74, blood pressure was 133/51, temperature was 98.5, respiratory rate was 24, and oxygen saturation was 97% on room air. HEAD, EYES, EARS, NOSE, AND THROAT: Showed normocephalic, atraumatic. NECK: Supple. HEART: Showed normal first and second heart sounds with no gallop, rub or murmur. CHEST: Clear to auscultation. No crepitation or rhonchi. ABDOMEN: Distended, soft, nontender. No guarding or rigidity. No organomegaly. Some tenderness in the right upper quadrant. No guarding or rigidity. No organomegaly. All hernial orifices intact. Bowel sounds normal. NEUROLOGIC: He was awake, alert, responding appropriately. All cranial nerves intact. EXTREMITIES: He moves all extremities without difficulty. LABORATORY DATA: On arrival showed a white cell count of 13,500, hemoglobin 13, hematocrit 41, MCV 80, and platelet count of 104,000. His chemistry showed a serum sodium 131, potassium 4.2, chloride 96, bicarbonate 25, anion gap of 10, BUN 23, creatinine 1.5, estimated GFR was 45 mL per minute, his glucose was 143, lactic acid was 1.8, calcium was 8.5, magnesium was 2.1. Total bilirubin 3.5, alkaline phosphatase was high at 176. AST, ALT were normal. Alkaline phosphatase was elevated. His beta natriuretic peptide was 4500. Total protein was 7.1, albumin 3 and lipase was 156. Urinalysis was essentially unremarkable. The urine was clear with a pH of 5.5, specific gravity 1.005. There was small amount of protein, large amount of glucose. The urine was negative for ketones, small amount of blood, negative for nitrite and leukocyte esterase, 1-2 rbc's, occasional wbc's, and no bacteria. His influenza A and B were negative. IMAGING: He has had a chest x-ray, which showed that there is no infiltrate, pleural effusion, or pneumothorax. There is stable cardiomegaly. There is evidence of prior coronary artery bypass graft and cardiac pacemaker placement. There are few calcified granulomas. He did have abdominal ultrasound, which showed that the pancreas is obscured due to overlying bowel gas. No focal hepatic masses seen. There is diffuse attenuation of sound throughout the liver; however, which may decrease sensitivity of sonography to detect any focal hepatic lesion. This is secondary to fatty infiltration of the liver, liver is mildly enlarged, measuring about 18.5 cm in length. The gallbladder wall measures 4.4 mm in thickness, which is mildly thickened of gallstones and biliary sludge are seen within the gallbladder. The extrahepatic bile duct measures 5 mm, which is normal. The right kidney measures 11.1 cm. No hydronephrosis, renal mass or perinephric fluid collection is seen on the right side. ASSESSMENT AND PLAN: The patient has cholelithiasis, gallbladder wall thickening, which may be seen with acute cholecystitis. The patient was basically admitted, was kept n.p.o. We will arrange for him to have a hepatobiliary scan. He was also started on IV antibiotic in the form of Flagyl as well as ceftriaxone. Once we have the result of the hepatobiliary scan and if there is evidence of acute cholecystitis, he will need to be transferred to [facility]. ERICK NOLAN MD DR: FABRIZIO/ariana JOB#: [id number] / [id number]
[2019-01-14] MEDS: IPRATRPIUM/ALBUTEROL 0.5/2.5MG 3 ML NEBU. NEB SCH (12:00)
[2019-01-14] MEDS ORDERED: MORPHINE SULFATE 4 MG/ML DISP.SYRIN. IV PRN (12:15)
--- NOTE | 2019-01-14 13:47 | RAD ---
Radionuclide hepatobiliary scan, 01/14/2019: HISTORY: Abnormal gallbladder, cholelithiasis, elevated liver enzymes Following IV injection of 5 mCi of technetium 99m Choletec there was prompt uptake of the radionuclide from the blood stream by the liver. Activity is evident in the bile ducts and small bowel at 15 minutes. Initial imaging out to 1 hour did not demonstrate gallbladder activity. Additional imaging was therefore performed following IV injection of 4 mg of morphine. Again, no gallbladder activity was identified. A small amount by reflux into the stomach was noted. IMPRESSION: Nonvisualization of the gallbladder compatible with cystic duct obstruction due to acute cholecystitis. Electronically signed by: Dave Conley MD (01/14/2019 1:44 PM) [facility]
== END 2019-01-14 15:11 | disposition short-term general hospital (02) ==
LOC: ER 15:40 → INTOOBSV 22:00 → 1 SOUTH 22:00
PROVIDERS: ADMIT Internal Medicine; ATTEND Internal Medicine
DX: K80.20 Calculus of gallbladder without cholecystitis without obstruction (principal); I48.91 Unspecified atrial fibrillation; I25.2 Old myocardial infarction; I25.10 Atherosclerotic heart disease of native coronary artery without angina pectoris; E78.5 Hyperlipidemia, unspecified; E78.00 Pure hypercholesterolemia, unspecified; I13.0 Hypertensive heart and chronic kidney disease with heart failure and stage 1 through stage 4 chronic kidney disease, or unspecified chronic kidney disease; J44.9 Chronic obstructive pulmonary disease, unspecified; I50.30 Unspecified diastolic (congestive) heart failure; N18.9 Chronic kidney disease, unspecified; G47.33 Obstructive sleep apnea (adult) (pediatric); E46 Unspecified protein-calorie malnutrition; E11.22 Type 2 diabetes mellitus with diabetic chronic kidney disease; D72.829 Elevated white blood cell count, unspecified; D69.6 Thrombocytopenia, unspecified; E87.1 Hypo-osmolality and hyponatremia; Z95.1 Presence of aortocoronary bypass graft; Z87.891 Personal history of nicotine dependence; Z82.5 Family history of asthma and other chronic lower respiratory diseases; Z82.49 Family history of ischemic heart disease and other diseases of the circulatory system
CPT/HCPCS: 36415; 71045; 76705; 78227; 80053; 81001; 82550; 82947; 83605; 83690; 83735; 83880; 84484; 85025; 87804; 93005; 96361; 96365; 96366; 96367; 96375; 96376; 99284; A9537; G0378; J0696; J1940; J2270; J2405; J3490; J7040; 96374; G0379; 99285-25

== ENCOUNTER 2019-02-05 16:55 | Inpatient (IN) | payer MEDICARE ==
[~2019-02-05] VITALS: Ht 182.9 cm; Wt 98.2 kg
[~2019-02-05 16:55] MED LIST changes: +APIX5TAB3 PO; +ATOR40TA59 PO; +CANA100T PO; +DILT180C2 PO; +LINA5TAB4 PO; +LISI-338 PO; +NEBI10TA3 PO; +POTA10TA10 PO; +TORS20TA2 PO
[2019-02-05 17:05] VITALS: BP 137/69
[2019-02-05] MEDS ORDERED: DRON2.5C PO (17:07)
[2019-02-05] MEDS ORDERED: ONDA4TAB7 PO (17:07)
[2019-02-05] MEDS ORDERED: TAMS0.4C97 PO (17:07)
[2019-02-05] MEDS ORDERED: IPRA3AMP29 NEB (17:07)
[2019-02-05] MEDS ORDERED: TRAM50TA PO (17:07)
[2019-02-05] MEDS ORDERED: FURO40TA4 PO (17:07)
[2019-02-05 18:40] LABS: ALBUMIN 2.3 g/dL (3.4-5.0); ALBUMIN/GLOBULIN RATIO 0.6 (1.0-1.7); C REACTIVE PROTEIN 20.9 mg/L (0-3.3); CALCIUM 8.3 mg/dL (8.5-10.1); CREATININE 1.7 mg/dL (0.7-1.3); GFR 39.2; TOTAL BILIRUBIN 0.7 mg/dL (0.2-1.0)
[2019-02-05] MEDS ORDERED: ONDANSETRON ODT 4 MG TAB.RAPDIS PO PRN (18:45)
--- NOTE | 2019-02-05 18:51 | HP ---
ADMIT DATE: 02/05/2019 HISTORY OF PRESENT ILLNESS: The patient is a 78-year-old male patient, who underwent laparoscopic turned open cholecystectomy. 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 His appetite has been extremely poor despite being on Marinol. He has also difficulty swallowing, although we treated his oropharyngeal candidiasis with Mycelex 10 mg tablet 5 times a day and completed a 10-day course, continued to have generalized weakness and shortness of breath despite resuming his Lasix and therefore, he was admitted directly to [facility] for further evaluation and treatment. PAST MEDICAL HISTORY: Significant for atrial fibrillation, type 2 diabetes mellitus, hypertension, hyperlipidemia, coronary artery disease, status post myocardial infarction, status post coronary artery bypass graft surgery. He is also known to have COPD with obstructive sleep apnea on CPAP. PAST SURGICAL HISTORY: Significant for coronary artery bypass graft surgery, permanent pacemaker implantation, bilateral cataract extraction, has had screening colonoscopy and most recently a laparoscopic turned open cholecystectomy. He did have a temporary hemodialysis catheter placed and removed once his kidney function has improved. ALLERGIES: He has no known drug allergies. MEDICATIONS: He is currently on following medications: He is on Bystolic 10 mg tablet once a day, Tradjenta 5 mg once a day, diltiazem CD 180 mg once a day, atorvastatin 40 mg at bedtime, Eliquis 5 mg twice a day, clotrimazole 10 mg Troches 4 times a day, Flomax 0.4 mg once a day, Lidoderm patch applied topically once a day. He is on potassium chloride extended release 20 mg twice a day, Invokana 100 mg tablet once a day, tramadol 50 mg every 6 hours as needed, ipratropium bromide, albuterol sulfate 4 times a day. He is on Marinol 2.5 mg twice a day, furosemide 40 mg once a day, and Zofran ODT 4 mg once a day. FAMILY HISTORY: His father at age of 72 because of COPD. Mother at the age of 90. He has 5 brothers and 5 sisters. SOCIAL HISTORY: He is , has 3 daughters. He quit smoking in 1994. He does not drink alcohol or recreational drugs. He is retired from [employer]. REVIEW OF SYSTEMS: The patient denied any blurring of vision, cataract, glaucoma. He has bilateral cataract extraction, but denied any glaucoma or macular degeneration. Denied any earache, tinnitus or sensorineural deafness. Denied any nosebleeds, stuffy nose or postnasal drip. Denied any sore throat, sore tongue, toothache, hoarseness of voice. Did complain of difficulty swallowing and severe anorexia; however, denied any nausea, vomiting, diarrhea or constipation. Denied any hematemesis, melena or hematochezia. He continued to have an indwelling Chavez catheter. NEUROLOGIC: He is awake, alert, responding appropriately. All cranial nerves intact. He moves extremities without difficulty, although he is weak and examination of the extremities showed that he has no clubbing, cyanosis, but marked bilateral lower extremity edema. LABORATORY DATA: He apparently has had lab work done at [facility], which showed that his serum sodium was 132, potassium 4.8, chloride 97, bicarbonate 28, glucose 134, BUN 11, creatinine 1.4. His calcium was 8. Total protein was 5.6. His albumin was 2.7. Total bilirubin, AST, ALT were normal. Alkaline phosphatase of 120. Estimated GFR was 48 mL per minute. His white cell count was 12,000, hemoglobin 10.9, hematocrit 34, MCV was 81 and platelet count of 158,000. His ammonia level was only 30. IMPRESSION: In summary, this is a 78-year-old male patient, who was admitted directly from [facility] with severe anorexia and poor appetite. PLAN: I will resume all his medication. Repeat his labs including sed rate and CRP, do a chest x-ray and a CT scan of the abdomen and pelvis without contrast and we will decide on further management accordingly. ERICK NOLAN MD DR: FABRIZIO/ariana JOB#: [id number] / [id number]
[2019-02-05 19:49] VITALS: BP 138/72
[2019-02-05] MEDS: IPRATRPIUM/ALBUTEROL 0.5/2.5MG 3 ML NEBU. NEB SCH (20:38)
[2019-02-05] MEDS: APIXABAN 5 MG TABLET. PO SCH (21:01)
[2019-02-05 22:27] VITALS: BP 119/62
[2019-02-06] MEDS: IPRATRPIUM/ALBUTEROL 0.5/2.5MG 3 ML NEBU. NEB SCH ×4 (04:25→19:57)
[2019-02-06 05:21] VITALS: BP 113/65
--- NOTE | 2019-02-06 05:36 | RAD ---
Abdominal and Pelvis CT, Without Contrast: History: Left flank pain. Comparison: None. Procedure: Axial images are obtained of the abdomen and pelvis, without IV or oral contrast. CT Abdomen without Contrast: Findings: Evaluation of solid organs is limited without contrast. Evaluation of stomach and bowel is limited without oral contrast. There is a small right effusion with adjacent infiltrate. There is edema and a small focus of air within the abdominal wall the right consistent with recent cholecystectomy. There are 3 small densities seen in the mesentery right upper quadrant with mild surrounding fluid. Liver: Normal. Spleen: There is a 3.8 cm hypoattenuating lesion in the spleen. Pancreas: Normal. Adrenal Glands: Normal. Kidneys: Normal. There is no free air or free fluid. There is no lymphadenopathy. There is diffuse soft tissue edema. Impression: Please see CT Pelvis without Contrast. End Impression. CT Pelvis without Contrast: Findings: The urinary bladder is collapsed around a Chavez. There is no free fluid. There is no lymphadenopathy. There is no pericolonic inflammation identified. The appendix is normal. Impression: 1. Small right effusion with adjacent infiltrate. 2. Mild soft tissue edema could be anasarca or sepsis. 3. There is 3 small densities and surrounding inflammation in the mesenteric fat of the right upper quadrant which could be loose gallbladder stones. 3. Hypoattenuating lesion in the spleen is nonspecific and statistically is likely benign. End impression PQRS Compliance Statement: One or more of the following individualized dose reduction techniques were utilized for this examination: 1. Automated exposure control 2. Adjustment of the mA and/or kV according to patient size 3. Use of iterative reconstruction technique Electronically signed by: Abdiel Tohmas III, MD (02/06/2019 5:33 AM) [id number]
[2019-02-06 07:55] LABS: BASO # 0.1 x10^3/uL (0.0-0.2); BASO % 1 % (0-3); EOS # 0.1 x10^3/uL (0.0-0.7); EOS % 2 % (0-3); HEMATOCRIT 33.1 % (39.0-53.0); HEMOGLOBIN 10.9 g/dL (13.0-17.5); LYMPH # 0.7 x10^3/uL (1.0-4.8); LYMPH % 10 % (24-48); MEAN CORPUSCULAR HEMOGLOBIN 26 pg (25-35); MEAN CORPUSCULAR HGB CONC 33 g/dL (31-37); MEAN CORPUSCULAR VOLUME 79 fL (79-100); MONO # 0.7 x10^3/uL (0.0-1.1); MONO % 10 % (0-9); NEUT # 5.5 x10^3uL (1.8-7.7); NEUT % 78 % (31-73); PLATELET COUNT 123 x10^3/uL (140-400); RED BLOOD COUNT 4.19 x10^6/uL (4.30-5.70); RED CELL DISTRIBUTION WIDTH 17.9 % (11.5-14.5); WHITE BLOOD COUNT 7.1 x10^3/uL (4.0-11.0)
[2019-02-06] MEDS: POTASSIUM CHLORIDE 20 MEQ TABLET.ER. PO SCH (08:00)
[2019-02-06 08:07] LABS: ALBUMIN/GLOBULIN RATIO 0.5 (1.0-1.7); CALCIUM 8.4 mg/dL (8.5-10.1); CREATININE 1.4 mg/dL (0.7-1.3); POTASSIUM 3.9 mmol/L (3.5-5.1); TOTAL BILIRUBIN 0.7 mg/dL (0.2-1.0); TOTAL PROTEIN 5.9 g/dL (6.4-8.2)
[2019-02-06] MEDS: ATORVASTATIN CALCIUM 20 MG TABLET PO SCH (09:00)
[2019-02-06] MEDS: NON FORMULARY ITEM (Canagliflozin (Invokana) 100 MG) PO SCH (09:00)
[2019-02-06] MEDS: TAMSULOSIN 0.4 MG CAP.ER.24H. PO SCH (09:00)
[2019-02-06] MEDS: METOPROLOL TART IMMED RELEASE 50 MG TABLET PO SCH ×2 (09:00→20:22)
[2019-02-06] MEDS: APIXABAN 5 MG TABLET. PO SCH ×2 (09:00→20:21)
[2019-02-06] MEDS: LINAGLIPTIN 5 MG TABLET PO SCH (09:00)
[2019-02-06 10:53] VITALS: BP 162/64
[2019-02-06] MEDS: DRONABINOL 2.5 MG CAPSULE PO SCH ×2 (11:30→16:18)
[2019-02-06] MEDS ORDERED: BARIUM SULFATE 98% 135 ML SUSP PO ONE (13:45)
[2019-02-06] MEDS ORDERED: BARIUM SULFATE 60% 355 ML SUSP PO ONE (13:45)
[2019-02-06] MEDS ORDERED: SIMETHICONE/SOD BICARB/CITRIC ACID PACKET. PO ONE (13:45)
[2019-02-06 15:37] VITALS: BP 152/73
[2019-02-06 16:25] LABS: CLARITY,URINE HAZY; COLOR,URINE YELLOW
[2019-02-06 16:26] LABS: BILIRUBIN,URINE NEG (NEG); GLUCOSE,URINE 500 mg/dL (NEG); NITRITE,URINE NEG (NEG); RBC,URINE 0 /HPF (0-2); UROBILINOGEN,URINE 0.2 mg/dL (0.2 mg/dL); WBC,URINE 20-40 /HPF (0-4)
[2019-02-06 16:27] LABS: BACTERIA,URINE 0 /HPF (0-FEW)
[2019-02-06 19:50] VITALS: BP 108/56
[2019-02-06] MEDS: ALBUMIN HUMAN 25% 50 ML IV SCH (20:26)
[2019-02-06 22:27] VITALS: BP 101/57
--- NOTE | 2019-02-07 00:07 | PN ---
DATE: 02/06/2019 SUBJECTIVE: The patient is resting, slightly propped up in bed, in no apparent distress. He apparently did much better today. He managed to get out of the bed, walk with a walker with physical therapy, sat in the chair and has to stand up for his barium swallow. So far, his lab work showed his white cell count was normal. His sedimentation rate was slightly high at 60 mm per hour and C-reactive protein was 20.9 mg/dL. His creatinine is slightly down from 1.7 to 1.4. He did have a CT scan of the abdomen and pelvis, which was basically unremarkable, showed that he has small right effusion with adjacent infiltrate, mild soft tissue edema could be anasarca or sepsis. There is three small densities with surrounding inflammation in the mesenteric fat of the right upper quadrant, which could be loose gallbladder stones, hypoattenuation lesion in the spleen is nonspecific and statistically is likely benign. PHYSICAL EXAMINATION: GENERAL: When I examined him this afternoon, he was resting slightly propped up in bed, pale, but no jaundice, cyanosis or thyromegaly. No jugular venous distension. No lower limb edema. VITAL SIGNS: His heart rate was 92, blood pressure was 162/64, temperature was 97.5, respiratory rate was 20 and oxygen saturation was 95%. HEAD, EYES, EARS, NOSE AND THROAT: Showed normocephalic, atraumatic. NECK: Supple. HEART: Showed normal first and second heart sounds. No gallop, rub or murmur. CHEST: Clear to auscultation. No crepitation or rhonchi. ABDOMEN: Distended, soft, nontender. No guarding or rigidity. No organomegaly. All hernial orifice intact. Bowel sounds normal. NEUROLOGIC: He was sleepy, but arousable. All cranial nerves are intact. He moves extremities without difficulty, ambulates with a walker. His intake over the last 24 hours and output were incompletely recorded. LABORATORY DATA: As of this morning showed a white cell count of 7100, hemoglobin 11, hematocrit 33, MCV 79 and platelet count of 123,000 with normal manual differential. His sedimentation rate was 60 mm per hour. As of this morning, his serum sodium was 137, potassium 3.9, chloride 102, bicarbonate 28, anion gap of 7, BUN 10, creatinine 1.4. Estimated GFR was 49 mL per minute. His glucose was 98. Calcium was 8.4. Total bilirubin, AST, ALT were normal. Alkaline phosphatase slightly elevated. His total protein was 5.9, albumin was 2. His nasal screen for MRSA by PCR was negative. He has had barium swallow done, the result of which is still pending. He was evaluated by the speech therapist and apparently he is now on dysphagia 2 diet with thin liquid and crushed medication. PLAN: My plan is to send urine for culture and sensitivity. I increased his Marinol to 5 mg twice a day. We will order human 25% albumin as well as Lasix 20 mg twice a day. Check urine for culture and sensitivity. ERICK NOLAN MD DR: FABRIZIO/ariana JOB#: [id number] / [id number]
[2019-02-07 05:05] VITALS: BP 137/71
[2019-02-07] MEDS: IPRATRPIUM/ALBUTEROL 0.5/2.5MG 3 ML NEBU. NEB SCH ×4 (05:56→19:56)
[2019-02-07 06:47] LABS: CALCIUM 8.2 mg/dL (8.5-10.1); CREATININE 1.3 mg/dL (0.7-1.3); GFR 53.4; POTASSIUM 4.1 mmol/L (3.5-5.1)
--- NOTE | 2019-02-07 08:52 | RAD ---
ESOPHOGRAM/BARIUM SWALLOW History: Difficulty swallowing Comparison: None. Findings: [employer] radiograph of the chest demonstrates evidence of previous median sternotomy, also single lead left electronic cardiac device. There is some mild medial right base airspace opacity. There is atherosclerotic calcification thoracic aorta near arch. Limited barium esophagram was performed. Exam was performed with patient in supine position and head of the table elevated about 45 degrees. Patient drank thin barium through a straw. Overall caliber of the esophagus is within normal limits without significant stricture. There were some tertiary contractions of the mid to distal esophagus. There was also reflux from distal esophagus to the proximal one third of the esophagus. After the exam was completed, patient vomited. Fluoroscopy time 0.9 minutes, 104 images Impression: 1. There was no evidence of esophageal obstruction or stricture. There were some tertiary contractions of the mid to distal esophagus, also episode of reflux to the level of the proximal one third of the esophagus. 2. There is mild right medial basilar airspace opacity, may be due to atelectasis/infiltrate. Electronically signed by: Curly Pimentel MD (02/07/2019 8:49 AM) [facility]
[2019-02-07] MEDS: NON FORMULARY ITEM (Canagliflozin (Invokana) 100 MG) PO SCH (09:00)
[2019-02-07] MEDS: POTASSIUM CHLORIDE 20 MEQ TABLET.ER. PO SCH (09:57)
[2019-02-07] MEDS: ALBUMIN HUMAN 25% 50 ML IV SCH ×2 (09:58→23:03)
[2019-02-07] MEDS: METOPROLOL TART IMMED RELEASE 50 MG TABLET PO SCH ×2 (10:04→20:51)
[2019-02-07] MEDS: TAMSULOSIN 0.4 MG CAP.ER.24H. PO SCH (10:05)
[2019-02-07] MEDS: LINAGLIPTIN 5 MG TABLET PO SCH (10:05)
[2019-02-07] MEDS: APIXABAN 5 MG TABLET. PO SCH ×2 (10:05→20:51)
[2019-02-07] MEDS: ATORVASTATIN CALCIUM 20 MG TABLET PO SCH (10:07)
[2019-02-07 11:01] VITALS: BP 158/78
[2019-02-07] MEDS: DRONABINOL 2.5 MG CAPSULE PO SCH ×2 (12:33→16:56)
[2019-02-07] MEDS ORDERED: PIP/TAZO PER PHARMACY MC PRN (15:00)
[2019-02-07] MEDS ORDERED: FUROSEMIDE 40 MG/4 ML VIAL IVP ONE (15:00)
[2019-02-07 15:25] VITALS: BP 110/55
[2019-02-07] MEDS ORDERED: VANCOMYCIN 2 GM in IV NORMAL SALINE 500ML 500 ML IV ONE (15:30)
[2019-02-07] MEDS: VANCOMYCIN PER PHARMACY MC PRN (17:26)
[2019-02-07 19:56] VITALS: BP 124/65
[2019-02-07] MEDS: PIPERACILLIN/TAZOBACTAM 4.5 GM in IV NORMAL SALINE 50ML 50 ML IV SCH (20:52)
[2019-02-07 23:05] VITALS: BP 115/61
[2019-02-08] MEDS: IPRATRPIUM/ALBUTEROL 0.5/2.5MG 3 ML NEBU. NEB SCH ×4 (04:29→20:46)
[2019-02-08] MEDS: PIPERACILLIN/TAZOBACTAM 4.5 GM in IV NORMAL SALINE 50ML 50 ML IV SCH ×3 (05:00→23:21)
[2019-02-08 05:31] VITALS: BP 127/66
[2019-02-08 06:32] LABS: HEMATOCRIT 32.1 % (39.0-53.0); HEMOGLOBIN 10.6 g/dL (13.0-17.5); RED BLOOD COUNT 4.06 x10^6/uL (4.30-5.70); RED CELL DISTRIBUTION WIDTH 17.9 % (11.5-14.5); WHITE BLOOD COUNT 5.5 x10^3/uL (4.0-11.0)
[2019-02-08 06:57] LABS: ALBUMIN 2.4 g/dL (3.4-5.0); ALBUMIN/GLOBULIN RATIO 0.7 (1.0-1.7); CALCIUM 8.3 mg/dL (8.5-10.1); CREATININE 1.3 mg/dL (0.7-1.3); GFR 53.4; POTASSIUM 3.7 mmol/L (3.5-5.1); TOTAL BILIRUBIN 0.7 mg/dL (0.2-1.0); TOTAL PROTEIN 5.9 g/dL (6.4-8.2)
[2019-02-08] MEDS: NON FORMULARY ITEM (Canagliflozin (Invokana) 100 MG) PO SCH (09:00)
[2019-02-08] MEDS: POTASSIUM CHLORIDE 20 MEQ TABLET.ER. PO SCH (10:23)
[2019-02-08] MEDS: ALBUMIN HUMAN 25% 50 ML IV SCH ×2 (10:24→21:12)
[2019-02-08] MEDS: ATORVASTATIN CALCIUM 20 MG TABLET PO SCH (10:25)
[2019-02-08] MEDS: LACTOBACILLUS RHAMNOSUS GG 1 CAPSULE. PO SCH ×2 (10:25→20:39)
[2019-02-08] MEDS: TAMSULOSIN 0.4 MG CAP.ER.24H. PO SCH (10:26)
[2019-02-08] MEDS: LINAGLIPTIN 5 MG TABLET PO SCH (10:27)
[2019-02-08] MEDS: APIXABAN 5 MG TABLET. PO SCH ×2 (10:27→20:39)
[2019-02-08] MEDS: METOPROLOL TART IMMED RELEASE 50 MG TABLET PO SCH ×2 (10:27→20:39)
[2019-02-08 10:47] VITALS: BP 148/63
[2019-02-08] MEDS: DRONABINOL 2.5 MG CAPSULE PO SCH ×2 (11:59→16:52)
[2019-02-08 15:25] VITALS: BP 119/66
[2019-02-08] MEDS ORDERED: HYDROcodone/APAP 5/325MG 1 TAB TABLET PO PRN (16:45)
[2019-02-08] MEDS: VANCOMYCIN 125 MG/2.5 ML ORAL SOLUTION. PO SCH ×2 (17:00→20:40)
[2019-02-08] MEDS: VANCOMYCIN 1.5 GM in IV NORMAL SALINE 500ML 500 ML IV SCH (17:50)
[2019-02-08] MEDS: LIDOCAINE (700MG/PATCH) PATCH. TD SCH ×2 (17:50→21:50)
[2019-02-08 19:35] VITALS: BP 131/63
[2019-02-08] MEDS: PATCH REMOVAL. MC SCH (20:40)
--- NOTE | 2019-02-08 21:25 | PN ---
DATE: 02/08/2019 SUBJECTIVE: The patient is resting, slightly propped up in bed, in no apparent respiratory distress. On questioning him, he said he has had multiple episodes of diarrhea that is watery. Denied any abdominal pain. Denied any nausea or vomiting. OBJECTIVE: GENERAL: When I examined him, he looked pale, no jaundice, cyanosis, or thyromegaly. No jugular venous distension. No lower limb edema. VITAL SIGNS: His heart rate was 70, blood pressure was 148/63, temperature was 97.6, respiratory rate was 20, and oxygen saturation was 100% on 2 liters of oxygen. HEAD, EYES, EARS, NOSE, AND THROAT: Showed normocephalic, atraumatic. NECK: Supple. HEART: Showed normal first and second heart sounds. No gallop, rub, or murmur. CHEST: Clear to auscultation. No crepitation or rhonchi. ABDOMEN: Distended, soft, nontender. No guarding or rigidity. No organomegaly. All hernial orifice intact. Bowel sounds normal. NEUROLOGIC: He was awake, alert, responding appropriately. All cranial nerves intact. He moves extremities without difficulty. He ambulates with a walker. His intake over the last 24 hours was 740, output was 1550. LABORATORY DATA: Showed a white cell count 5500, hemoglobin 10.6, hematocrit 32, MCV 79, and platelet count of 96,000. His chemistry showed a serum sodium 136, potassium 3.7, chloride 102, bicarbonate 27, anion gap of 7, BUN 7, creatinine 1.3, estimated GFR was 53 mL per minute, his glucose 123, calcium was 8.3. Total bilirubin, AST, ALT, alkaline phosphatase were normal. Total protein was 5.9, albumin was 2.4. ASSESSMENT: 1. Severe anorexia and poor appetite. So far, his barium swallow was normal and showed no evidence of any esophageal stricture or obstruction. His CT abdomen and pelvis basically showed small right-sided effusion with adjacent infiltrate. 2. Mild soft tissue edema could be anasarca and sepsis. There are 3 small densities and surrounding inflammation in the mesenteric fat of the right upper quadrant, which could be loose gallbladder stones. Hypoattenuation lesion in the spleen is nonspecific and statistically likely benign. The patient has multiple episodes of diarrhea. We will send stool for C. diff. I will start him empirically on vancomycin 125 mg 4 times a day and await further results of stool for C. diff. ERICK NOLAN MD DR: FABRIZIO/ariana JOB#: [id number] / [id number]
[2019-02-08 23:35] VITALS: BP 124/68
[2019-02-09] MEDS: IPRATRPIUM/ALBUTEROL 0.5/2.5MG 3 ML NEBU. NEB SCH ×4 (05:10→20:44)
[2019-02-09 05:42] VITALS: BP 96/57
[2019-02-09] MEDS: PIPERACILLIN/TAZOBACTAM 4.5 GM in IV NORMAL SALINE 50ML 50 ML IV SCH ×3 (05:52→21:53)
[2019-02-09] MEDS: POTASSIUM CHLORIDE 20 MEQ TABLET.ER. PO SCH (08:38)
[2019-02-09] MEDS: TAMSULOSIN 0.4 MG CAP.ER.24H. PO SCH (08:40)
[2019-02-09] MEDS: LINAGLIPTIN 5 MG TABLET PO SCH (08:40)
[2019-02-09] MEDS: LACTOBACILLUS RHAMNOSUS GG 1 CAPSULE. PO SCH ×2 (08:41→21:07)
[2019-02-09] MEDS: ATORVASTATIN CALCIUM 20 MG TABLET PO SCH (08:41)
[2019-02-09] MEDS: APIXABAN 5 MG TABLET. PO SCH ×2 (08:41→21:07)
[2019-02-09] MEDS: METOPROLOL TART IMMED RELEASE 50 MG TABLET PO SCH ×2 (08:41→21:07)
[2019-02-09] MEDS: VANCOMYCIN 125 MG/2.5 ML ORAL SOLUTION. PO SCH ×4 (08:42→21:07)
[2019-02-09] MEDS: NON FORMULARY ITEM (Canagliflozin (Invokana) 100 MG) PO SCH (09:00)
[2019-02-09] MEDS ORDERED: LIDOCAINE (700MG/PATCH) PATCH. TD SCH (09:00)
[2019-02-09] MEDS: ALBUMIN HUMAN 25% 50 ML IV SCH ×2 (09:41→21:06)
[2019-02-09] MEDS: NYSTATIN TOPICAL POWDER 15GM BOTTLE. TP SCH ×2 (09:41→21:00)
[2019-02-09 11:03] VITALS: BP 116/68
[2019-02-09] MEDS: DRONABINOL 2.5 MG CAPSULE PO SCH ×2 (11:30→17:23)
[2019-02-09 15:03] VITALS: BP 137/73
[2019-02-09 16:49] LABS: VANC TR 14.9 mcg/mL (10.0-20.0)
[2019-02-09] MEDS: VANCOMYCIN PER PHARMACY MC PRN (17:14)
[2019-02-09] MEDS: VANCOMYCIN 1.5 GM in IV NORMAL SALINE 500ML 500 ML IV SCH (17:24)
[2019-02-09 19:33] VITALS: BP 170/74
[2019-02-09] MEDS: PATCH REMOVAL. MC SCH (21:00)
--- NOTE | 2019-02-09 21:53 | PN ---
DATE: 02/09/2019 SUBJECTIVE: The patient is resting, slightly propped up in bed, in no apparent distress. He is definitely more awake, alert. On questioning him, he denied any complaint, diarrhea has subsided. He has only 1 episode of diarrhea this morning. He has severe intertriginous candidiasis involving the both groins and the scrotal area. PHYSICAL EXAMINATION: GENERAL: When I examined him, he looked pale, but no jaundice, cyanosis, or thyromegaly. No jugular venous distention. No limb edema. VITAL SIGNS: His heart rate was 70, blood pressure was 116/68, temperature was 97.3, respiratory rate was 20, and oxygen saturation was 99% on 2 liters of oxygen. HEAD, EYES, EARS, NOSE AND THROAT: Showed normocephalic, atraumatic. NECK: Supple. HEART: Showed normal first and second heart sounds. No gallop, rub or murmur. CHEST: Clear to auscultation. No crepitation or rhonchi. ABDOMEN: Distended, soft, nontender. No guarding or rigidity. No organomegaly. All hernial orifice intact. Bowel sounds normal. NEUROLOGIC: He was awake, alert, responding appropriately. All cranial nerves intact. He ambulates with a walker. He continued to have an indwelling Chavez catheter for his bladder outlet obstruction. His intake over the last 24 hours was 1090, output was 3050. LABORATORY DATA: His lab work as of yesterday showed a white cell count 5500, hemoglobin 11, hematocrit 32, MCV 79 and platelet count of 961,000. His chemistry showed a serum sodium 136, potassium 3.7, chloride 102, bicarbonate 27, anion gap of 7, BUN 7, creatinine 1.3, estimated GFR was 53 mL per minute, his glucose 123, calcium was 8.3. Total bilirubin, AST, ALT, alkaline phosphatase were normal. Total protein was 5.9, albumin was 2.4. ASSESSMENT: 1. Severe anorexia and poor appetite, so far, his barium swallow was normal, showed no evidence of any esophageal stricture or obstruction. 2. CT scan of the abdomen and pelvis basically showed small right-sided effusion, adjacent infiltrate. 3. He has mild soft tissue edema, could be anasarca and sepsis. He has severe protein calorie malnutrition, but serum albumin is only 2.4 g/dL. 4. He has intertriginous candidiasis involving both groin areas and scrotum. 5. Atrial fibrillation, rate controlled, well anticoagulated. 6. Type 2 diabetes mellitus, reasonably controlled 7. Hypertension, well controlled. 8. Hyperlipidemia. 9. Coronary artery disease, status post myocardial infarction, status post coronary bypass graft surgery. 10. Chronic obstructive pulmonary disease. 11. Obstructive sleep apnea, on CPAP. PLAN: My plan is to continue with IV Lasix as well as IV human albumin. Continue with vancomycin. Continue with piperacillin/tazobactam and continue with stimulation. I will repeat all his labs tomorrow and hopefully discharge him home to continue oral antibiotic and we will arrange for him to be seen by urologist for his bladder outlet obstruction. ERICK NOLAN MD DR: FABRIZIO/ariana JOB#: [id number] / [id number]
[2019-02-09 22:34] VITALS: BP 142/74
[2019-02-10] MEDS ORDERED: ALBUTEROL SULFATE 2.5 MG/3 ML NEBU. NEB PRN (04:15)
[2019-02-10] MEDS: IPRATRPIUM/ALBUTEROL 0.5/2.5MG 3 ML NEBU. NEB SCH ×2 (04:27→10:59)
[2019-02-10 06:06] VITALS: BP 148/77
[2019-02-10] MEDS: PIPERACILLIN/TAZOBACTAM 4.5 GM in IV NORMAL SALINE 50ML 50 ML IV SCH (06:09)
[2019-02-10 06:58] LABS: HEMATOCRIT 32.4 % (39.0-53.0); HEMOGLOBIN 10.6 g/dL (13.0-17.5); RED BLOOD COUNT 4.11 x10^6/uL (4.30-5.70); RED CELL DISTRIBUTION WIDTH 17.6 % (11.5-14.5); WHITE BLOOD COUNT 4.2 x10^3/uL (4.0-11.0)
[2019-02-10 07:16] LABS: ALBUMIN 2.6 g/dL (3.4-5.0); ALBUMIN/GLOBULIN RATIO 0.7 (1.0-1.7); CREATININE 1.1 mg/dL (0.7-1.3); GFR 64.7; POTASSIUM 3.5 mmol/L (3.5-5.1); TOTAL BILIRUBIN 0.8 mg/dL (0.2-1.0); TOTAL PROTEIN 6.2 g/dL (6.4-8.2)
[2019-02-10] MEDS: POTASSIUM CHLORIDE 20 MEQ TABLET.ER. PO SCH (08:28)
[2019-02-10] MEDS: LINAGLIPTIN 5 MG TABLET PO SCH (08:28)
[2019-02-10] MEDS: TAMSULOSIN 0.4 MG CAP.ER.24H. PO SCH (08:28)
[2019-02-10] MEDS: ATORVASTATIN CALCIUM 20 MG TABLET PO SCH (08:28)
[2019-02-10] MEDS: LACTOBACILLUS RHAMNOSUS GG 1 CAPSULE. PO SCH (08:29)
[2019-02-10] MEDS: VANCOMYCIN 125 MG/2.5 ML ORAL SOLUTION. PO SCH (08:29)
[2019-02-10] MEDS: APIXABAN 5 MG TABLET. PO SCH (08:29)
[2019-02-10] MEDS: METOPROLOL TART IMMED RELEASE 50 MG TABLET PO SCH (08:29)
[2019-02-10] MEDS: NYSTATIN TOPICAL POWDER 15GM BOTTLE. TP SCH (08:30)
[2019-02-10] MEDS: ALBUMIN HUMAN 25% 50 ML IV SCH (08:33)
[2019-02-10] MEDS: LIDOCAINE (700MG/PATCH) PATCH. TD SCH (08:34)
[2019-02-10] MEDS: NON FORMULARY ITEM (Canagliflozin (Invokana) 100 MG) PO SCH (08:34)
[2019-02-10 11:07] VITALS: BP 150/82
[2019-02-10] MEDS ORDERED: VANC125C3 PO (12:24)
[2019-02-10] MEDS ORDERED: DRON5CAP2 PO (12:24)
--- NOTE | 2019-02-10 20:37 | DS ---
DATE OF DISCHARGE: 02/10/2019 HOSPITAL COURSE: The patient is a 78-year-old male patient who came from [facility] with severe weakness, very poor appetite, has also difficulty swallowing, although we have treated his oropharyngeal candidiasis with Mycelex 10 mg tablet 5 times a day and completed 10-day course. He continued to have generalized weakness and shortness of breath despite resuming his Lasix and therefore he was admitted to [facility] and we did increase his Marinol to 5 mg twice a day. We did a barium swallow, which basically showed no evidence of any esophageal obstruction or stricture. He was seen by the speech therapist and he is now on mechanically soft, thin liquid with ground meat. There was suggestion that his urinalysis was suggestive of urinary tract infection. There was large amount of leukocyte esterase and 20-[address] scan of the abdomen and pelvis suggested that he might have right lower lobe infiltrate. We did start him on IV Zosyn and vancomycin to cover both these. His urine culture was negative and has had no cough. White cell count remained stable and is afebrile. Unfortunately, he developed C diff colitis, so I discontinued Zosyn and vancomycin and the decision was made to discharge him home with home health and to continue with oral vancomycin. PHYSICAL EXAMINATION: GENERAL: When I examined him this morning, he looked well and was clearly in no apparent respiratory distress, pale. No jaundice, cyanosis, or thyromegaly. No jugular venous distention. No limb edema. VITAL SIGNS: His heart rate was 69, blood pressure was 150/82, temperature was 97.8, respiratory rate 20, and oxygen saturation was 98% on room air. HEAD, EYES, EARS, NOSE, AND THROAT: Showed normocephalic, atraumatic. NECK: Supple. HEART: Showed normal first and second heart sounds with no gallop, rub, or murmur. CHEST: Clear to auscultation. No crepitation or rhonchi. ABDOMEN: Distended, soft, nontender. NEUROLOGIC: He was more awake, alert, responding appropriately. All cranial nerves intact. He moved extremities without difficulty. He ambulated with a walker. His intake over the last 24 hours was 1120, output was 400. LABORATORY DATA: As of this morning, his white cell count was 4200, hemoglobin 11, hematocrit 33, MCV 79, and platelet count of 73,000. His chemistry showed serum sodium 137, potassium 3.5, chloride 103, bicarbonate 28, anion gap of 6, BUN 5, creatinine was 1.1, estimated GFR was 64 mL per minute. His glucose was 124, calcium was 8. Total bilirubin, AST, ALT, alkaline phosphatase were normal. Total protein was 6.2, albumin 2.6. His stool for C diff toxins were positive. Nasal screen for MRSA PCR was negative. DISCHARGE MEDICATIONS: He was discharged home with home health, to continue with dronabinol 5 mg twice a day, vancomycin 125 mg 4 times a day for 14 days, apixaban 5 mg twice a day, atorvastatin calcium 40 mg once a day, Invokana 100 mg once a day, diltiazem 180 mg once a day, furosemide 40 mg once a day, ipratropium bromide and albuterol sulfate for DuoNeb 4 times a day, Tradjenta 5 mg once a day, nebivolol for Bystolic 10 mg once a day, ondansetron for Zofran 4 mg p.o. every 4 hours, potassium chloride 20 mEq daily, tamsulosin 0.4 mg daily, tramadol 50 mg every 6 hours. FINAL DISCHARGE DIAGNOSES: 1. Severe anorexia and poor appetite, improving. The patient had a barium swallow that was normal, showed no evidence of any esophageal stricture or obstruction. 2. CT scan of the abdomen and pelvis basically showed small right-sided pleural effusion, adjacent infiltrate. 3. Clostridium difficile colitis, which he was started on oral vancomycin. 4. Severe protein-calorie malnutrition, serum albumin is only 2.4 g/dL. 5. Intertriginous candidiasis involving both groin areas and scrotum. 6. Atrial fibrillation, rate controlled, well anticoagulated. 7. Type 2 diabetes mellitus, reasonably controlled. 8. Hypertension, well controlled. 9. Hyperlipidemia. 10. Coronary artery disease, status post myocardial infarction, status post coronary artery bypass graft surgery. 11. Obstructive sleep apnea and chronic obstructive pulmonary disease, on CPAP. ERICK NOLAN MD DR: FABRIZIO/ariana JOB#: [id number] / [id number]
== END 2019-02-10 14:25 | disposition home health service (06) | DRG 371 ==
LOC: 1 SOUTH 16:55
PROVIDERS: ADMIT Internal Medicine; ATTEND Internal Medicine
PROC: 5A09357 Assistance with Respiratory Ventilation, Less than 24 Consecutive Hours, Continuous Positive Airway Pressure (ICD-10-PCS; principal; 2019-02-07)
DX: A04.72 Enterocolitis due to Clostridium difficile, not specified as recurrent (principal); E43 Unspecified severe protein-calorie malnutrition; B37.0 Candidal stomatitis; N39.0 Urinary tract infection, site not specified; E78.5 Hyperlipidemia, unspecified; B37.2 Candidiasis of skin and nail; E11.9 Type 2 diabetes mellitus without complications; G47.33 Obstructive sleep apnea (adult) (pediatric); I10 Essential (primary) hypertension; I25.10 Atherosclerotic heart disease of native coronary artery without angina pectoris; I25.2 Old myocardial infarction; I48.91 Unspecified atrial fibrillation; J44.9 Chronic obstructive pulmonary disease, unspecified; Z82.5 Family history of asthma and other chronic lower respiratory diseases; Z87.891 Personal history of nicotine dependence; Z95.1 Presence of aortocoronary bypass graft; Z95.0 Presence of cardiac pacemaker; Z98.42 Cataract extraction status, left eye; Z98.41 Cataract extraction status, right eye; Z68.29 Body mass index [BMI] 29.0-29.9, adult
CPT/HCPCS: 36415; 74176; 74220; 80048; 80053; 80202; 81001; 82550; 85025; 85027; 85651; 86140; 87086; 87493; 87641; 94640; 94760; J0696; J1940; J2543; J3370; J7040; J7613; J7620; P9046; Q0167; 97110; 97530

== ENCOUNTER → 2019-04-08 | Outpatient (CLI) | payer MEDICARE ==
[~2019-04-08] MED LIST changes: +DRON2.5C PO; +DRON5CAP2 PO; +FURO40TA4 PO; +IPRA3AMP29 NEB; +ONDA4TAB7 PO; +TAMS0.4C97 PO; +TRAM50TA PO; +VANC125C3 PO
[2019-04-08 10:40] LABS: CALCIUM 9.1 mg/dL (8.5-10.1); CREATININE 1.5 mg/dL (0.7-1.3); GFR 45.1; POTASSIUM 4.5 mmol/L (3.5-5.1)
== END | disposition home or self-care (01) ==
LOC: LAB 09:39
PROVIDERS: ATTEND Specialist
DX: I13.0 Hypertensive heart and chronic kidney disease with heart failure and stage 1 through stage 4 chronic kidney disease, or unspecified chronic kidney disease (principal); E11.22 Type 2 diabetes mellitus with diabetic chronic kidney disease; I50.32 Chronic diastolic (congestive) heart failure; N18.9 Chronic kidney disease, unspecified
CPT/HCPCS: 36415; 80048

== ENCOUNTER → 2019-05-01 | Outpatient (CLI) | payer MEDICARE ==
[2019-05-01 12:02] LABS: CREATININE 1.4 mg/dL (0.7-1.3); GFR 48.9; POTASSIUM 3.8 mmol/L (3.5-5.1)
== END | disposition home or self-care (01) ==
LOC: LAB 10:19 → EDSTATUS 10:24
PROVIDERS: ATTEND Internal Medicine
DX: I50.33 Acute on chronic diastolic (congestive) heart failure (principal)
CPT/HCPCS: 36415; 80048; 83880

== ENCOUNTER → 2019-10-21 | Outpatient (CLI) | payer MEDICARE ==
[2019-10-21 11:09] LABS: CREATININE 1.8 mg/dL (0.7-1.3); GFR 36.6; POTASSIUM 3.6 mmol/L (3.5-5.1)
== END | disposition home or self-care (01) ==
LOC: LAB 10:15
PROVIDERS: ATTEND Nurse Practitioner
DX: I10 Essential (primary) hypertension (principal)
CPT/HCPCS: 36415; 80048; 83880

== ENCOUNTER → 2020-04-19 | Outpatient (CLI) | payer MEDICARE ==
[2020-04-19 17:07] LABS: TOTAL SERUM CREATININE 1.41 mg/dL (0.76-1.27); TOTAL URINE CREATININE 59.4 mg/dL (Not Estab.)
== END ==
LOC: LAB 10:12
PROVIDERS: ATTEND Internal Medicine Nephrology
DX: N17.9 Acute kidney failure, unspecified (principal)
CPT/HCPCS: 36415; 82575

== ENCOUNTER → 2020-06-18 | Outpatient (CLI) | payer MEDICARE ==
[2020-06-18 10:32] LABS: ALBUMIN 2.7 g/dL (3.4-5.0); ALBUMIN/GLOBULIN RATIO 0.6 (1.0-1.7); CALCIUM 8.9 mg/dL (8.5-10.1); CREATININE 1.8 mg/dL (0.7-1.3); GFR 36.5; POTASSIUM 4.1 mmol/L (3.5-5.1); TOTAL BILIRUBIN 0.8 mg/dL (0.2-1.0); TOTAL PROTEIN 6.9 g/dL (6.4-8.2)
== END | disposition home or self-care (01) ==
LOC: LAB 09:06
PROVIDERS: ATTEND Nurse Practitioner
DX: E78.5 Hyperlipidemia, unspecified (principal)
CPT/HCPCS: 36415; 80053; 80061

== ENCOUNTER → 2020-06-18 | Outpatient (CLI) | payer MEDICARE ==
[2020-06-18 10:23] LABS: HEMATOCRIT 37.1 % (39.0-53.0); HEMOGLOBIN 12.3 g/dL (13.0-17.5)
[2020-06-18 10:30] LABS: ALBUMIN 2.8 g/dL (3.4-5.0); CALCIUM 9.1 mg/dL (8.5-10.1); CREATININE 1.8 mg/dL (0.7-1.3); GFR 36.5; PHOSPHORUS 4.2 mg/dL (2.6-4.7); POTASSIUM 4.3 mmol/L (3.5-5.1)
[2020-06-19 12:07] LABS: CALCIUM PTH 8.8 mg/dL (8.6-10.2); PTH INTACT 42 pg/mL (15-65)
== END | disposition home or self-care (01) ==
LOC: LAB 09:00
PROVIDERS: ATTEND Nurse Practitioner Family
DX: N17.9 Acute kidney failure, unspecified (principal)
CPT/HCPCS: 36415; 80069; 82728; 83540; 83550; 83970; 85014; 85018

== ENCOUNTER 2020-07-30 10:24 | Inpatient (IN) | payer MEDICARE ==
[~2020-07-30] VITALS: Ht 182.9 cm; Wt 86.5 kg
[2020-07-30] MEDS ORDERED: ONDANSETRON PF 4 MG/2 ML VIAL. IVP ONE (10:30)
--- NOTE | 2020-07-30 10:32 | PHYS DOC ---
Past History Past Medical History: CAD, COPD, Diabetes, High Cholesterol, Hypertension Past Surgical History: Coronary Bypass Surgery, Pacemaker Alcohol Use: None Drug Use: None General Adult EDM: Chief Complaint: NAUSEA/VOMITING/DIARRHEA HPI: HPI: Patient is a 80-year-old male who presents with a one-week history of nausea vomiting diarrhea. Patient having 2 episodes of vomiting per day and 2 episodes of diarrhea per day. Patient has had a complicated medical course this year including an right arm fracture pressure sore in his right medial ankle and was on temporary dialysis. Patient has a chronic indwelling Chavez catheter as well. Patient was last on antibiotics 2 to 3 weeks ago. Patient denies any abdominal pain. Symptoms are worse with eating. Patient has any fever cough shortness of breath. Patient denies any blood in stool. Review of Systems: Review of Systems: Constitutional: Denies fever or chills Eyes: Denies change in visual acuity HENT: Denies nasal congestion or sore throat Respiratory: Denies cough or shortness of breath Cardiovascular: Denies chest pain or edema GI: Denies abdominal pain, nausea, vomiting, bloody stools or diarrhea : Denies dysuria Musculoskeletal: Denies back pain or joint pain Integument: Denies rash Neurologic: Denies headache, focal weakness or sensory changes Endocrine: Denies polyuria or polydipsia Lymphatic: Denies swollen glands Psychiatric: Denies depression or anxiety Heart Score: Risk Factors: Risk Factors: DM, Current or recent (<one month) smoker, HTN, HLP, family history of CAD, obesity. Risk Scores: Score 0 - 3: 2.5% MACE over next 6 weeks - Discharge Home Score 4 - 6: 20.3% MACE over next 6 weeks - Admit for Clinical Observation Score 7 - 10: 72.7% MACE over next 6 weeks - Early Invasive Strategies Allergies: Allergies: Allergies Coded Allergies Type Severity Reaction Last Updated Verified No Known Drug Allergies 01/13/19 No Physical Exam: PE: Constitutional: Well developed, well nourished, no acute distress, non-toxic appearance. [] HENT: Normocephalic, atraumatic, bilateral external ears normal, no trismus, nose normal. [] Eyes: PERRLA, EOMI, conjunctiva normal, no discharge. [] Neck: Normal range of motion, no tenderness, supple, no stridor. [] Cardiovascular:Heart rate regular rhythm, peripheral pulse intact cap refill is brisk Lungs & Thorax: Bilateral breath sounds clear, no respiratory distress Abdomen: , soft, no tenderness, no masses, no pulsatile masses. [] Skin: Warm, dry, no erythema, no rash. [] Back: No tenderness, no CVA tenderness. [] Extremities: No tenderness, no cyanosis, no clubbing, ROM intact, no edema. [] Neurologic: Alert and oriented X 3, normal motor function, normal sensory function, no focal deficits noted. [] Psychologic: Affect normal, judgement normal, mood normal. [] Current Patient Data: Labs: Laboratory Tests Test 07/30/20 10:30 07/30/20 10:34 Urine Collection Type Void Urine Color Yellow Urine Clarity Cloudy Urine pH 5.0 Urine Specific [place] 1.020 Urine Protein Trace Urine Glucose (UA) Neg mg/dL Urine Ketones (Stick) Neg mg/dL Urine Blood Trace Urine Nitrite Neg Urine Bilirubin Neg Urine Urobilinogen Dipstick 0.2 mg/dL Urine Leukocyte Esterase Small Urine RBC 0 /HPF Urine WBC 5-10 /HPF Urine Squamous Epithelial Cells Occ /LPF Urine Bacteria Mod /HPF Urine Yeast Present /HPF White Blood Count 6.4 x10^3/uL Red Blood Count 4.45 x10^6/uL Hemoglobin 12.0 g/dL Hematocrit 36.7 % Mean Corpuscular Volume 82 fL Mean Corpuscular Hemoglobin 27 pg Mean Corpuscular Hemoglobin Concent 33 g/dL Red Cell Distribution Width 13.7 % Platelet Count 116 x10^3/uL Neutrophils (%) (Auto) 76 % Lymphocytes (%) (Auto) 9 % Monocytes (%) (Auto) 15 % Eosinophils (%) (Auto) 1 % Basophils (%) (Auto) 1 % Neutrophils # (Auto) 4.8 x10^3uL Lymphocytes # (Auto) 0.5 x10^3/uL Monocytes # (Auto) 0.9 x10^3/uL Eosinophils # (Auto) 0.0 x10^3/uL Basophils # (Auto) 0.0 x10^3/uL Sodium Level 128 mmol/L Potassium Level 3.6 mmol/L Chloride Level 94 mmol/L Carbon Dioxide Level 25 mmol/L Anion Gap 9 Blood Urea Nitrogen 33 mg/dL Creatinine 1.9 mg/dL Estimated GFR (Cockcroft-Gault) 34.3 BUN/Creatinine Ratio 17 Glucose Level 119 mg/dL Lactic Acid Level 1.1 mmol/L Calcium Level 8.6 mg/dL Total Bilirubin 1.1 mg/dL Aspartate Amino Transf (AST/SGOT) 14 U/L Alanine Aminotransferase (ALT/SGPT) 12 U/L Alkaline Phosphatase 114 U/L Total Protein 6.7 g/dL Albumin 2.7 g/dL Albumin/Globulin Ratio 0.7 Lipase 74 U/L Current Medications Medications (Trade) Dose Ordered Sig/[place] Route PRN Reason Start Time Stop Time Status Last Admin Dose Admin Ondansetron HCl (Zofran) 4 mg 1X ONCE IVP 07/30/20 10:30 07/30/20 10:56 DC 07/30/20 11:21 Sodium Chloride 500 ml @ 0 mls/hr 1X ONCE IV 07/30/20 10:45 07/30/20 10:56 DC 07/30/20 11:21 Metronidazole 100 ml @ 100 mls/hr 1X ONCE IV 07/30/20 11:30 07/30/20 12:29 EKG: EKG: EKG interpreted by me paced with a right axis deviation prolonged QTC nonspecific ST changes, rate of 70 [] Radiology/Procedures: Radiology/Procedures: [][place] [address] IMAGING REPORT Signed PATIENT: RACHAEL RAGLAND ACCOUNT: [id number] : 1940 LOCATION: ER AGE: 80 SEX: M EXAM STATUS: PRE ER ORD. PHYSICIAN: LEON CARROLL MD REASON: N/V PROCEDURE: PORTABLE CHEST 1V Examination: PORTABLE CHEST 1V History: N/V Comparison/Correlation: 03/19/2019 two-view chest x-ray exam Findings: Portable frontal view chest was obtained. Similarly the left-sided pacemaker is present. Sternal wires and mediastinal clips are present. Heart size is within normal limits. Calcified granulomas present. No pneumothorax. No infiltrate or pleural effusion. Minimal linear scarring, linear atelectasis or artifact at the lateral right upper lung is present. Impression: No definite infiltrate. Electronically signed by: Juan Ford MD (07/30/2020 11:05 AM) [facility] DICTATED AND SIGNED BY: JUAN FORD MD DATE: 07/30/20 4535 CC: LEON CARROLL MD; SHERRIE MCKINNEY MD ~ Course & Med Decision Making: Course & Med Decision Making Pertinent Labs and Imaging studies reviewed. (See chart for details) [] 80-year-old male comes in with a one-week history of nausea vomiting diarrhea and generalized weakness. Patient with a high likelihood of C. difficile as he finished antibiotics to 3 weeks ago. Patient has hyponatremia and acute kidney injury. Patient need admission for IV fluid hydration. Discussed with who will admit Dragon Disclaimer: Dragstefani Disclaimer: This electronic medical record was generated, in whole or in part, using a voice recognition dictation system. Departure Departure: Impression: Primary Impression: Generalized weakness Additional Impressions: Hyponatremia Acute kidney injury Nausea vomiting and diarrhea Disposition: HOME/RESIDENCE PRIOR TO ADM Admitting Physician: Osmar Collins Condition: STABLE Referrals: SHERRIE MCKINNEY MD (PCP) Justification of Admission: Justification of Admission: Justification of Admission Dx: Yes (Hyponatremia acute kidney injury) LEON CARROLL MD Jul 30, 2020 10:32
[2020-07-30] MEDS ORDERED: IV NORMAL SALINE 500ML 500 ML IV ONE (10:45)
[2020-07-30 10:52] LABS: BASO % 1 % (0-3); EOS % 1 % (0-3); HEMATOCRIT 36.7 % (39.0-53.0); LYMPH # 0.5 x10^3/uL (1.0-4.8); LYMPH % 9 % (24-48); MEAN CORPUSCULAR HEMOGLOBIN 27 pg (25-35); MEAN CORPUSCULAR HGB CONC 33 g/dL (31-37); MEAN CORPUSCULAR VOLUME 82 fL (79-100); MONO # 0.9 x10^3/uL (0.0-1.1); MONO % 15 % (0-9); NEUT # 4.8 x10^3uL (1.8-7.7); NEUT % 76 % (31-73); PLATELET COUNT 116 x10^3/uL (140-400); RED BLOOD COUNT 4.45 x10^6/uL (4.30-5.70); RED CELL DISTRIBUTION WIDTH 13.7 % (11.5-14.5); WHITE BLOOD COUNT 6.4 x10^3/uL (4.0-11.0)
[2020-07-30 11:02] LABS: BACTERIA,URINE MOD /HPF (0-FEW); BILIRUBIN,URINE NEG (NEG); CLARITY,URINE CLOUDY; COLOR,URINE YELLOW; GLUCOSE,URINE NEG (NEG); NITRITE,URINE NEG (NEG); RBC,URINE 0 /HPF (0-2); UROBILINOGEN,URINE 0.2 mg/dL (0.2 mg/dL)
[2020-07-30 11:03] LABS: SQUAMOUS EPITHELIAL CELL,UR OCC /LPF; YEAST,URINE PRESENT /HPF
--- NOTE | 2020-07-30 11:08 | RAD ---
Examination: PORTABLE CHEST 1V History: N/V Comparison/Correlation: 03/19/2019 two-view chest x-ray exam Findings: Portable frontal view chest was obtained. Similarly the left-sided pacemaker is present. Sternal wires and mediastinal clips are present. Heart size is within normal limits. Calcified granulomas present. No pneumothorax. No infiltrate or pleural effusion. Minimal linear scarring, linear atelectasis or artifact at the lateral right upper lung is present. Impression: No definite infiltrate. Electronically signed by: Juan Carranza MD (07/30/2020 11:05 AM) [id number]
[2020-07-30 11:13] LABS: CALCIUM 8.6 mg/dL (8.5-10.1); CREATININE 1.9 mg/dL (0.7-1.3); GFR 34.3; POTASSIUM 3.6 mmol/L (3.5-5.1)
[2020-07-30 11:18] LABS: ALBUMIN 2.7 g/dL (3.4-5.0); ALBUMIN/GLOBULIN RATIO 0.7 (1.0-1.7); TOTAL BILIRUBIN 1.1 mg/dL (0.2-1.0); TOTAL PROTEIN 6.7 g/dL (6.4-8.2)
[2020-07-30] MEDS ORDERED: ONDANSETRON PF 4 MG/2 ML VIAL. IVP PRN (11:45)
[2020-07-30] MEDS ORDERED: IV NORMAL SALINE 1,000ML 1,000 ML IV ONE (12:00)
[2020-07-30 12:59] VITALS: BP 131/70
--- NOTE | 2020-07-30 13:00 | NUR ---
The patient, RACHAEL RAGLAND, 80 y/o, M admitted by ERICK NOLAN MD, was given written information regarding hospital policies, unit procedures and contact persons. Pt arrived on unit at 1240 via EMS. Pt was admitted for complaints of N/V/D. Pt is A&O. He has a broken R arm in a cast, has a pressure ulcer on R heel which is connected to a wound vac, and has a morgan catheter in place.
--- NOTE | 2020-07-30 14:54 | EKG ---
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
[2020-07-30 15:45] VITALS: BP 138/68
[2020-07-30] MEDS ORDERED: LISI2.5T PO (17:13)
[2020-07-30] MEDS ORDERED: METO5TAB4 PO (17:13)
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
--- NOTE | 2020-07-30 17:27 | NUR ---
NSG NOTE; BAE[facility] CATH IRRIGATION PER , PT'S CATH HAS A LOT OF MUCOUS AT TIMES AND NEEDS TO BE IRRIGATED EVERY FEW DAYS THE CATHER HAD BEEN PLACED FOR URINARY RETENTION. PT HAS A FOLLOW UP APPT WITH A UROLOGIST AUG 17
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
[2020-07-30 19:15] VITALS: BP 134/56
--- NOTE | 2020-07-30 20:07 | RAD ---
Right FOOT AP LATERAL Clinical Indication: Reason: Right foot infection with drainage tube, pain / Spl. Instructions: RIGHT HEEL ULCER / History: Comparison: None. Findings: Sensitivity decreased without third view. There is a drain or small wound VAC type device medial to the distal tibia. Arterial calcifications are seen. There is no dorsal soft tissue swelling of the foot. Mineralization relatively normal. Small dorsal osteophytes of the tarsal bones. No acute fracture. There is no obvious bony erosion. Question soft tissue swelling superficial to the heel. IMPRESSION: No radiographic evidence of osteomyelitis. Electronically signed by: Van Shaw MD (07/30/2020 8:04 PM) [facility]
--- NOTE | 2020-07-30 20:11 | RAD ---
FOREARM RIGHT Clinical Indication: Reason: FRACTURE RIGHT FOREARM FOR FOLLOW UP / Spl. Instructions: C DIFF COLITIS / History: Comparison: None. Findings: There is plate and screw fixation of oblique fracture of the mid diaphysis of the ulna. The alignment is maintained on the lateral view but the distal fracture fragment is radially displaced a half shaft length. No callus formation is identified. Correlate to time since surgery to assess for nonunion. There is cast material. There is no obvious deformity of the elbow or wrist. There are arterial calcifications. There is triscaphe and first CMC joint space narrowing. There is no acute fracture. IMPRESSION: 1. No acute fracture. 2. Internal fixation of the ulna. Please see above. Electronically signed by: Van Shaw MD (07/30/2020 8:08 PM) [facility]
[2020-07-30] MEDS: VANCOMYCIN 125 MG/2.5 ML ORAL SOLUTION. PO SCH (22:35)
[2020-07-30] MEDS: LACTOBACILLUS RHAMNOSUS GG 1 CAPSULE. PO SCH (22:35)
[2020-07-30] MEDS: APIXABAN 2.5 MG TABLET PO SCH (22:35)
[2020-07-30] MEDS: METOPROLOL TART IMMED RELEASE 50 MG TABLET PO SCH (22:36)
[2020-07-30] MEDS: POTASSIUM CHLORIDE 20 MEQ TABLET.ER. PO SCH (22:37)
[2020-07-30 22:48] VITALS: BP 123/65
[2020-07-31] MEDS: IV NORMAL SALINE 1,000ML 1,000 ML IV SCH ×3 (01:12→13:45)
[2020-07-31] MEDS: NON FORMULARY ITEM (Canagliflozin (Invokana) 100 MG) PO SCH (07:57)
[2020-07-31 07:58] LABS: HEMOGLOBIN 11.4 g/dL (13.0-17.5); RED BLOOD COUNT 4.21 x10^6/uL (4.30-5.70); RED CELL DISTRIBUTION WIDTH 14.2 % (11.5-14.5); WHITE BLOOD COUNT 7.3 x10^3/uL (4.0-11.0)
[2020-07-31] MEDS: LINAGLIPTIN 5 MG TABLET PO SCH (08:00)
[2020-07-31] MEDS: APIXABAN 2.5 MG TABLET PO SCH ×2 (08:00→20:28)
[2020-07-31] MEDS: ATORVASTATIN CALCIUM 20 MG TABLET PO SCH (08:01)
[2020-07-31] MEDS: LACTOBACILLUS RHAMNOSUS GG 1 CAPSULE. PO SCH ×2 (08:01→20:29)
[2020-07-31] MEDS: POTASSIUM CHLORIDE 20 MEQ TABLET.ER. PO SCH ×2 (08:01→20:29)
[2020-07-31] MEDS: METOPROLOL TART IMMED RELEASE 50 MG TABLET PO SCH ×2 (08:01→20:28)
[2020-07-31 08:04] LABS: ALBUMIN 2.3 g/dL (3.4-5.0); ALBUMIN/GLOBULIN RATIO 0.6 (1.0-1.7); CREATININE 1.3 mg/dL (0.7-1.3); GFR 53.1; POTASSIUM 3.9 mmol/L (3.5-5.1); TOTAL BILIRUBIN 0.8 mg/dL (0.2-1.0)
[2020-07-31] MEDS: VANCOMYCIN 125 MG/2.5 ML ORAL SOLUTION. PO SCH ×2 (08:04→13:00)
[2020-07-31] MEDS ORDERED: FLU VACC QS 2020-21(6MOS+)/PF 0.5 ML SYRINGE. VAX IM ONE (09:00)
[2020-07-31 10:27] VITALS: BP 97/50
[2020-07-31] MEDS ORDERED: LOPERAMIDE 2 MG CAPSULE PO PRN (14:00)
[2020-07-31] MEDS ORDERED: LOPERAMIDE 2 MG CAPSULE PO ONE (14:00)
--- NOTE | 2020-07-31 14:19 | PN ---
DATE: 07/31/2020 SUBJECTIVE: The patient is resting flat in bed, in no apparent distress. On questioning him, he continued to have diarrhea, although the stool for C. diff toxins were negative. He denied any further episodes of nausea and vomiting. He is now able to eat and drink. His electrolytes are improving. His sodium is up as well as potassium, and his creatinine and BUN are trending down. PHYSICAL EXAMINATION: GENERAL: When I examined him this afternoon, he was pale, somewhat cachectic, but no jaundice, cyanosis, or thyromegaly. No jugular venous distention. No lower limb edema. VITAL SIGNS: His heart rate was 70, blood pressure was 97/50, temperature was 97.6, respiratory rate was 20, and oxygen saturation was 97% on room air. HEAD, EYES, EARS, NOSE AND THROAT: Showed normocephalic, atraumatic. NECK: Supple. HEART: Normal first and second heart sounds. No gallop or murmur. CHEST: Clear to auscultation. No crepitation or rhonchi. ABDOMEN: Distended, soft, nontender. No guarding or rigidity. No organomegaly. All hernial orifices intact. Bowel sounds normal. NEUROLOGIC: He is hard of hearing, but otherwise all his cranial nerves are intact. He moves extremities without difficulty. SKIN: His right forearm is in a splint. He has an indwelling Chavez catheter. He has wounds on the right heel that are covered with wound vacuum-assisted closure device. His intake over the last 24 hours was incompletely recorded. LABORATORY DATA: As of this morning, his serum sodium is up to 130, potassium up to 3.9, chloride 98, bicarbonate 20, anion gap of 12, BUN 24, creatinine 1.3, estimated GFR was 53 mL per minute, glucose was 99, lactic acid was 1.1, calcium was 8. Total bilirubin, AST, ALT, alkaline phosphatase were normal. Total protein 6, albumin 2.3. C-reactive protein was 36.3 mg/dL. His white cell count was 7300, hemoglobin 11, hematocrit 35, MCV 83 and platelet count of 108,000. Urinalysis showed the urine was cloudy with a pH of 5, specific gravity of 1.020. There was trace of protein, negative for glucose and ketones with trace of blood, negative for nitrite and bilirubin. There was a small amount of leukocyte esterase, 0 rbc's, 5-10 wbc's, moderate amount of bacteria. His stool for C. diff toxins by PCR was negative. His chest x-ray showed no evidence of definite infiltrate, and x-ray of his right forearm showed that there is a plate and screw fixation of the oblique fracture of the mid diaphysis of the ulna. The alignment is maintained on the lateral view, but the distal fracture fragment is radially displaced half shaft length, no callus formation identified. Correlate with the time since the surgery to assess for nonunion. There is cast material. There is no obvious deformity of the elbow and wrist. There are arterial calcifications. The carpometacarpal joint space is narrowed, but there is no other acute fracture. The x-ray of the right foot showed that there is a drain with a small wound VAC type device medial to the distal tibial, arterial calcification is seen. There is no dorsal soft tissue swelling of the foot. Mineralization is relatively normal. Small dorsal osteophytes of the tarsal bones, no acute fracture. There is no obvious bony erosion. Question of soft tissue swelling superficial to the heel. Impression: The patient has no radiographic evidence of osteomyelitis. ASSESSMENT: 1. This is an 80-year-old male patient who presented with recurrent bouts of nausea, vomiting and diarrhea as well as anorexia. 2. He has received antibiotics about 4 weeks ago and we suspect that he might have C. diff colitis; however, C. diff toxin was negative. 3. He has hyponatremia, hypokalemia and acute kidney injury for which he is started on IV fluid and his potassium, sodium as well as kidney functions are all improving. He has multiple other medical problems that include atrial fibrillation, rate controlled, well anticoagulated, he has type 2 diabetes, hypertension, hyperlipidemia, coronary artery disease, status post myocardial infarction, status post coronary artery bypass graft surgery, chronic obstructive pulmonary disease. He is also known to have morbid obesity, obstructive sleep apnea; however, he has lost about 35 pounds over the last 6 months. The patient is known also to have benign prostatic hypertrophy and bladder outlet obstruction for which he required indwelling Chavez catheter. PLAN: My plan is to send stool for culture and sensitivity. Continue meanwhile with IV fluid. We will add also Imodium and monitor his lab work. ERICK NOLAN MD DR: Iker JOB#: [id number] / [id number]
[2020-07-31 15:04] VITALS: BP 118/62
[2020-07-31 19:00] VITALS: BP 114/56
[2020-07-31 19:10] VITALS: BP 107/62
--- NOTE | 2020-07-31 21:57 | NUR ---
Nursing Note: Pt lying in bed, awake at shift change. Pt A/O, calm, and cooperative. Chavez cath to d/d, wound vac to R heel dressing intact. Pt had small incontinent BM smear, however, not enough to collect specimen.
[2020-07-31 23:13] VITALS: BP 105/61
[2020-08-01] MEDS: IV NORMAL SALINE 1,000ML 1,000 ML IV SCH ×3 (00:06→19:45)
[2020-08-01] MEDS: ACETAMINOPHEN 325 MG TABLET PO PRN ×2 (00:20→08:03)
[2020-08-01 06:02] VITALS: BP 103/54
[2020-08-01 07:22] LABS: HEMATOCRIT 32.4 % (39.0-53.0); HEMOGLOBIN 10.5 g/dL (13.0-17.5); RED BLOOD COUNT 3.89 x10^6/uL (4.30-5.70); RED CELL DISTRIBUTION WIDTH 14.2 % (11.5-14.5)
[2020-08-01 07:35] LABS: ALBUMIN 2.1 g/dL (3.4-5.0); ALBUMIN/GLOBULIN RATIO 0.6 (1.0-1.7); CALCIUM 7.8 mg/dL (8.5-10.1); CREATININE 1.2 mg/dL (0.7-1.3); GFR 58.3; TOTAL BILIRUBIN 0.6 mg/dL (0.2-1.0); TOTAL PROTEIN 5.6 g/dL (6.4-8.2)
[2020-08-01] MEDS: POTASSIUM CHLORIDE 20 MEQ TABLET.ER. PO SCH ×2 (08:03→21:29)
[2020-08-01] MEDS: LACTOBACILLUS RHAMNOSUS GG 1 CAPSULE. PO SCH ×2 (08:03→21:29)
[2020-08-01] MEDS: ATORVASTATIN CALCIUM 20 MG TABLET PO SCH (08:04)
[2020-08-01] MEDS: APIXABAN 2.5 MG TABLET PO SCH ×2 (08:04→21:29)
[2020-08-01] MEDS: LINAGLIPTIN 5 MG TABLET PO SCH (08:04)
[2020-08-01] MEDS: METOPROLOL TART IMMED RELEASE 50 MG TABLET PO SCH ×2 (08:05→21:29)
[2020-08-01] MEDS: NON FORMULARY ITEM (Canagliflozin (Invokana) 100 MG) PO SCH (08:05)
[2020-08-01 11:24] VITALS: BP 110/60
[2020-08-01 16:07] VITALS: BP 115/60
--- NOTE | 2020-08-01 18:35 | PN ---
DATE: 08/01/2020 SUBJECTIVE: The patient is resting flat in bed, in no apparent respiratory distress. He is awake, alert. Denied any complaint; however, the smell from the wound is terrible. Currently, it was not changed since last Sunday, so we will change his wound VAC. The right foot is somewhat swollen, but denied any tenderness or pain. PHYSICAL EXAMINATION: GENERAL: When I examined him, he looked pale, but no jaundice, cyanosis or thyromegaly. No jugular venous distention or limb edema. VITAL SIGNS: Her heart rate was 70, blood pressure was 110/60, temperature was 98, respiratory rate was 20, and oxygen saturation was 99% on room air. HEENT: Showed normocephalic, atraumatic. NECK: Supple. HEART: Showed normal first and second heart sounds. No gallop, rub or murmur. CHEST: Clear to auscultation. No crepitation or rhonchi. ABDOMEN: Distended, soft, nontender. No guarding or rigidity. No organomegaly. All hernial orifices intact. Bowel sounds normal. NEUROLOGICALLY: He was awake, alert, responding appropriately. He is hard of hearing, but otherwise all cranial nerves are intact. He moves his upper extremities to much great extent, lower extremities mostly bedbound. EXTREMITIES: The right heel wound is covered with wound vacuum-assisted closure device. The right forearm is in a splint. His intake over the last 24 hours was 1940, output was 950. LABORATORY DATA: As of this morning, his white cell count was 7000, hemoglobin 10.5, hematocrit 32, MCV 83, and platelet count 99,000. His chemistry showed a serum sodium 130, potassium 4, chloride 101, bicarbonate 19, anion gap of 10, BUN 20, creatinine 1.2, estimated GFR was 58 mL per minute. His glucose was 105, calcium was 7.8. Total bilirubin, AST, ALT, alkaline phosphatase were normal. His C-reactive protein was high at 36.3 mg/dL, total protein 5.6, albumin 2.1. ASSESSMENT: 1. This is an 80-year-old male patient who presented with recurrent bouts of nausea, vomiting and diarrhea as well as anorexia. 2. He has received antibiotic about 4 weeks ago and we suspect that he might have C. diff colitis; however, C. diff toxin was negative. 3. He has hyponatremia, hypokalemia and acute kidney injury for which, he is started on IV fluid as his potassium, sodium as well as kidney functions are all improving. 4. He has multiple other medical problems including: A. Atrial fibrillation, rate controlled, well anticoagulated. B. Type 2 diabetes mellitus. C. Hypertension. D. Hyperlipidemia. E. Coronary artery disease, status post myocardial infarction, status post coronary artery bypass graft surgery. F. Chronic obstructive pulmonary disease. G. Morbid obesity, obstructive sleep apnea. H. Benign prostatic hypertrophy and bladder outlet obstruction requiring indwelling Chavez catheter. 5. The patient has wounds on his right heel, covered with wound vacuum-assisted closure device. 6. He has fractured right ulna, treated with open reduction and internal fixation. Plan is to continue with IV fluid, continue with all other medication. I will arrange for him to have a total body bone scan tomorrow and we will decide on further management to rule out possibility of osteomyelitis given the smell of the wound on his right foot. ERICK NOLAN MD DR: FABRIZIO/ariana JOB#: [id number] / [id number]
[2020-08-01 19:37] VITALS: BP 129/75
[2020-08-01 23:19] VITALS: BP 121/52
[2020-08-02 06:12] VITALS: BP 128/69
[2020-08-02 06:32] LABS: HEMATOCRIT 33.5 % (39.0-53.0); RED BLOOD COUNT 4.02 x10^6/uL (4.30-5.70); RED CELL DISTRIBUTION WIDTH 14.1 % (11.5-14.5); WHITE BLOOD COUNT 7.7 x10^3/uL (4.0-11.0)
[2020-08-02 06:50] LABS: ALBUMIN 2.2 g/dL (3.4-5.0); ALBUMIN/GLOBULIN RATIO 0.6 (1.0-1.7); CALCIUM 8.1 mg/dL (8.5-10.1); CREATININE 1.1 mg/dL (0.7-1.3); GFR 64.4; POTASSIUM 4.4 mmol/L (3.5-5.1); TOTAL BILIRUBIN 0.4 mg/dL (0.2-1.0); TOTAL PROTEIN 5.9 g/dL (6.4-8.2)
[2020-08-02] MEDS: ATORVASTATIN CALCIUM 20 MG TABLET PO SCH (08:17)
[2020-08-02] MEDS: POTASSIUM CHLORIDE 20 MEQ TABLET.ER. PO SCH ×2 (08:17→20:51)
[2020-08-02] MEDS: LACTOBACILLUS RHAMNOSUS GG 1 CAPSULE. PO SCH ×2 (08:18→20:51)
[2020-08-02] MEDS: APIXABAN 2.5 MG TABLET PO SCH ×2 (08:18→20:51)
[2020-08-02] MEDS: METOPROLOL TART IMMED RELEASE 50 MG TABLET PO SCH ×2 (08:18→20:51)
[2020-08-02] MEDS: LINAGLIPTIN 5 MG TABLET PO SCH (08:18)
[2020-08-02] MEDS: NON FORMULARY ITEM (Canagliflozin (Invokana) 100 MG) PO SCH (09:00)
[2020-08-02] MEDS: IV NORMAL SALINE 1,000ML 1,000 ML IV SCH ×2 (10:00→20:57)
[2020-08-02 10:25] VITALS: BP 134/69
[2020-08-02 15:23] VITALS: BP 126/71
--- NOTE | 2020-08-02 15:40 | NUR ---
Nursing note: Pt has been c/o nausea today and had 1 episode of vomiting after eating a bite of lunch. Broth, jello, and sprite were given instead and pt appeared to tolerate it much better. Pt not having any urine output through morgan catheter. Bladder scan showed >200mls. Catheter appeared to have a lot of sediment in the tubing so irrigation was attempted, but was unsuccessful. Catheter was removed and a new one was inserted. 950 ml was immediately collected in the bag.
--- NOTE | 2020-08-02 18:34 | NUR ---
Wound/Ostomy Care Wound Type/Assessment: Right heel stage III PU Treatment Recommendations/Plan: Removed vac, cleansed wound. Dressed with HFB, ABD and kerlix. Recommend to change every 2-3 days. If pt is still in hospital on Sunday will have WC STUDIO ASSISTANT come debride wound. Education provided: WC POC and PU prevention. Discussed with PT on phone as well Offloading surface/device: pillows, recommend heel medix boot Recommended Referrals/Tests: none Discharge Recommendations for dressings: Continue as above noted, pt will return to home vac after discharge.
--- NOTE | 2020-08-02 19:59 | PN ---
DATE: 08/02/2020 SUBJECTIVE: The patient is resting flat, comfortably in bed, in no apparent distress. Apparently, his Chavez catheter was clogged and his abdomen was distended. He had also some episodes of nausea and vomiting. However, his catheter was flushed and about 900 mL of urine were drained. When I saw him this afternoon, he is feeling much better. PHYSICAL EXAMINATION: GENERAL: When I examined him, he was pale, not jaundiced or cyanosed. No lymphadenopathy, no thyromegaly. No jugular venous distention. No limb edema. VITAL SIGNS: His heart rate was 70, blood pressure was 126/71, temperature 97.4, respiratory rate was 18 and oxygen saturation was 99%. HEENT: Normocephalic, atraumatic. NECK: Supple. HEART: Normal first and second heart sounds. No gallop or murmur. CHEST: Clear to auscultation. No crepitation, no rhonchi. ABDOMEN: Distended, soft, nontender. No guarding or rigidity. No organomegaly. All hernial orifices intact. Bowel sounds normal. NEUROLOGIC: He is hard of hearing, but otherwise all cranial nerves intact. EXTREMITIES: His right forearm has broken right ulna, status post open reduction and internal fixation. He has a right heel decubitus ulcer covered with wound vacuum-assisted closure device. His intake over the last 24 hours was 1090, output was 400. LABORATORY DATA: His lab work as of this morning showed a white cell count 7700, hemoglobin 11, hematocrit 33, MCV 83, and platelet count of 110,000. Serum sodium was 135, potassium 4.4, chloride 104, bicarbonate 22, anion gap of 9, BUN 15, creatinine 1.1, estimated GFR was 64 mL per minute, his glucose 119, calcium was 8.1. Total bilirubin, AST, ALT, alkaline phosphatase were normal. Total protein was 5.9, albumin 2.2. Urinalysis essentially showed small amount of leukocyte esterase, 0 rbc, 5-10 wbc's, and moderate amount of bacteria. His urine culture showed 3 or more organisms isolated results consistent with colonization contamination during the collection process. ASSESSMENT: 1. This is an 80-year-old male patient who presented with recurrent bouts of nausea, vomiting, diarrhea as well as anorexia. 2. He has received antibiotic about 4 weeks ago. I suspect he might have C. diff colitis; however, C. diff toxins were negative. 3. On admission, he has hyponatremia, hypokalemia and acute kidney injury for which he is started on IV fluid and his potassium, sodium as well as kidney function all is improving. 4. Has multiple other medical problems including: A. Atrial fibrillation, rate controlled, well anticoagulated. B. Type 2 diabetes mellitus. C. Hypertension. D. Hyperlipidemia. E. Coronary artery disease, status post myocardial infarction, status post coronary artery bypass graft surgery. F. Chronic obstructive pulmonary disease. G. Morbid obesity, obstructive sleep apnea. H. Benign prostatic hypertrophy with bladder outlet obstruction requiring indwelling Chavez catheter. 5. The patient has wounds on his right heel, covered with wound vacuum-assisted closure device. 6. He has fractured right ulna treated with open reduction and internal fixation. PLAN: To continue with IV fluid, continue with all his other medications. I have arranged for him to have a total body bone scan to rule out the possibility of osteomyelitis. I did ask his to bring the walking boot, so that we can start the process of physical and occupational therapy. ERICK NOLAN MD DR: FABRIZIO/ariana JOB#: [id number] / [id number]
--- NOTE | 2020-08-02 21:38 | RAD ---
EXAM: BONE SCAN 3 PHASE 08/02/2020 8:00 AM CLINICAL INDICATION:Infected right heel wound COMPARISON:Right foot radiograph 07/30/2020 TECHNIQUE:The patient was administered 25 mCi technetium 99 labeled MDP and three-phase bone scan of the lower extremities was performed. FINDINGS:There is increased radiotracer uptake in the right heel on flow, blood pool, and delayed phases. IMPRESSION: Findings consistent with osteomyelitis of the right heel. Electronically signed by: Shantell Waldrop MD (08/02/2020 9:35 PM) [id number]
[2020-08-02 21:50] VITALS: BP 138/75
[2020-08-02 22:52] VITALS: BP 133/75
[2020-08-02] MEDS ORDERED: VANCOMYCIN 2 GM in IV NORMAL SALINE 500ML 500 ML IV ONE (23:00)
--- NOTE | 2020-08-03 00:52 | NUR ---
Bone scan findings consistent with osteomyelitis of the right heel. notified, orders received to start vanco per pharmacy and zosyn.
[2020-08-03] MEDS: PIPERACILLIN/TAZOBACTAM 3.375 GM in IV NORMAL SALINE 50ML 50 ML IV SCH ×4 (01:15→17:41)
[2020-08-03] MEDS: IV NORMAL SALINE 1,000ML 1,000 ML IV SCH ×3 (01:45→21:45)
[2020-08-03 05:24] VITALS: BP 130/69
[2020-08-03] MEDS: VANCOMYCIN PER PHARMACY MC PRN (07:29)
--- NOTE | 2020-08-03 07:29 | NUR ---
Pharmacy Vancomycin Dosing Note S:Consulted to monitor and dose vancomycin started . O:RACHAEL RAGLAND is a 80 year old M with Osteomyelitis, . Height: 6 feet, 0 inches Weight: 80.6 kg [place] Body Weight: 77.60 Adjusted Body Weight: 78.80 Dosing Weight: Actual Other Antibiotics: ZOSYN 3.375GM Q6HRS LABS: Last BUN: 15 Last Creatinine: 1.1 Creatinine Clearance: Last WBC: 7.7 Last Procalcitonin: Tmax (past 24 hours): Microbiology: I/O: Drug Levels: Last level: on at Last dose given 08/02/20 at 2300 Vancomycin Dosing: Loading Dose: 2000 mg x1 Dosing Weight: Actual Target Trough: 15-20 A: Based on: P: 1. Begin Vancomycin 1250 mg IV q12h 2. Follow up Trough level on 08/04/20 at 1030 3. Pharmacy will continue to monitor, follow and adjust therapy as needed. HELEN MONTALVO [facility], 08/03/20 [id number]
[2020-08-03] MEDS: APIXABAN 2.5 MG TABLET PO SCH ×2 (07:38→20:55)
[2020-08-03] MEDS: POTASSIUM CHLORIDE 20 MEQ TABLET.ER. PO SCH ×2 (07:39→20:55)
[2020-08-03] MEDS: METOPROLOL TART IMMED RELEASE 50 MG TABLET PO SCH ×2 (07:39→20:55)
[2020-08-03] MEDS: LACTOBACILLUS RHAMNOSUS GG 1 CAPSULE. PO SCH ×2 (07:39→20:55)
[2020-08-03] MEDS: LINAGLIPTIN 5 MG TABLET PO SCH (07:39)
[2020-08-03] MEDS: ATORVASTATIN CALCIUM 20 MG TABLET PO SCH (07:40)
[2020-08-03] MEDS: NON FORMULARY ITEM (Canagliflozin (Invokana) 100 MG) PO SCH (09:00)
[2020-08-03 10:20] VITALS: BP 125/68
[2020-08-03] MEDS: VANCOMYCIN 1.25 GM in IV NORMAL SALINE 250ML 250 ML IV SCH ×2 (11:13→23:17)
[2020-08-03 15:08] VITALS: BP 157/78
--- NOTE | 2020-08-03 15:55 | PN ---
DATE: 08/03/2020 SUBJECTIVE: The patient is resting flat in bed, sleeping comfortably, is arousable. On questioning him, he is feeling cold, but otherwise denied any other complaint. The nursing staff stated he seemed to have generalized anasarca with swelling of all his extremities. We did actually a bone scan yesterday, which showed that there is increased radiotracer uptake in the right heel on the flow, blood pool and delayed phases, finding consistent with osteomyelitis of the right heel and therefore, I did start him on IV antibiotic in the form of vancomycin and piperacillin and tazobactam. PHYSICAL EXAMINATION: GENERAL: When I examined him this afternoon, he was pale, not jaundiced, cyanosed or thyromegaly. No jugular venous distention, but mild generalized anasarca. VITAL SIGNS: His heart rate was 71, blood pressure was 125/68, temperature was 97.4, respiratory rate was 18 and oxygen saturation was 98% on room air. HEAD, EYES, EARS, NOSE AND THROAT: Showed normocephalic, atraumatic. NECK: Supple. LABORATORY DATA: Showed a white cell count 7700, hemoglobin 11, hematocrit 33, MCV 83, and platelet count of 110,000. His chemistry showed a serum sodium 135, potassium 4.4, chloride 104, bicarbonate 22, anion gap of 9, BUN 15, creatinine 1.1, estimated GFR was 64 mL per minute, his glucose 119, calcium was 8.1. Total bilirubin, AST, ALT, alkaline phosphatase were normal. Total protein 5.9, albumin was 2.2. His C-reactive protein was 36. ASSESSMENT: 1. An 80-year-old male patient, who presented with recurrent bouts of nausea, vomiting, diarrhea as well as anorexia. 2. He apparently received antibiotic about 4 weeks ago and we suspected that he might have C. diff colitis; however, C. diff toxins were negative. 3. On admission, he was hyponatremic, hypokalemic with acute kidney injury, for which he was started on IV fluid and his potassium, sodium as well as magnesium are all improved. 4. His bone scan showed that he has osteomyelitis of his right heel. 5. He has multiple other medical problems including: A. Atrial fibrillation, rate controlled, well anticoagulated. B. Type 2 diabetes mellitus. C. Hypertension. D. Hyperlipidemia. E. Coronary artery disease, status post myocardial infarction, status post coronary artery bypass graft surgery. F. Chronic obstructive pulmonary disease. G. Morbid obesity, obstructive sleep apnea. H. Benign prostatic hypertrophy with bladder outlet obstruction requiring indwelling Chavez catheter. I. He has obviously a pressure ulcer on his right heel, for which he is covered with wound vacuum-assisted closure device. PLAN: To continue with IV antibiotic in the form of Zosyn and vancomycin. Continue with wound care. Continue with physical and occupational therapy. The patient will need to be transferred to either [facility] for antibiotic treatment and wound care and nutritional support or at least to a retirement facility. ERICK NOLAN MD DR: FABRIZIO/ariana JOB#: [id number] / [id number]
[2020-08-03 20:02] VITALS: BP 149/72
[2020-08-03 22:14] VITALS: BP 117/58
[2020-08-04] MEDS: PIPERACILLIN/TAZOBACTAM 3.375 GM in IV NORMAL SALINE 50ML 50 ML IV SCH ×4 (01:01→18:09)
[2020-08-04 05:42] VITALS: BP 126/69
[2020-08-04 06:22] LABS: HEMOGLOBIN 10.7 g/dL (13.0-17.5); RED BLOOD COUNT 4.02 x10^6/uL (4.30-5.70); RED CELL DISTRIBUTION WIDTH 14.8 % (11.5-14.5); WHITE BLOOD COUNT 9.1 x10^3/uL (4.0-11.0)
[2020-08-04 06:29] LABS: CALCIUM 8.1 mg/dL (8.5-10.1); CREATININE 1.3 mg/dL (0.7-1.3); GFR 53.1; POTASSIUM 4.8 mmol/L (3.5-5.1)
[2020-08-04] MEDS: LACTOBACILLUS RHAMNOSUS GG 1 CAPSULE. PO SCH ×2 (07:28→21:28)
[2020-08-04] MEDS: ATORVASTATIN CALCIUM 20 MG TABLET PO SCH (07:28)
[2020-08-04] MEDS: APIXABAN 2.5 MG TABLET PO SCH ×2 (07:29→21:28)
[2020-08-04] MEDS: METOPROLOL TART IMMED RELEASE 50 MG TABLET PO SCH ×2 (07:29→21:28)
[2020-08-04] MEDS: POTASSIUM CHLORIDE 20 MEQ TABLET.ER. PO SCH ×2 (07:29→21:28)
[2020-08-04] MEDS: LINAGLIPTIN 5 MG TABLET PO SCH (07:29)
[2020-08-04] MEDS: NON FORMULARY ITEM (Canagliflozin (Invokana) 100 MG) PO SCH (09:00)
[2020-08-04] MEDS ORDERED: FUROSEMIDE 40 MG/4 ML VIAL IVP ONE (09:00)
[2020-08-04 11:00] LABS: VANC TR 24.1 mcg/mL (10.0-20.0)
[2020-08-04 11:10] VITALS: BP 123/71
[2020-08-04] MEDS: VANCOMYCIN 1.25 GM in IV NORMAL SALINE 250ML 250 ML IV SCH (11:12)
--- NOTE | 2020-08-04 13:20 | PN ---
DATE: 08/04/2020 ATTENDING PHYSICIAN: Dr. Collins. CHIEF COMPLAINT: Swelling and foot infection. SUBJECTIVE: Comfortable. He is little bit confused. I explained to him that he has a diagnosis of osteomyelitis of the right heel. This is confirmed by previous bone scan. OBJECTIVE FINDINGS: VITAL SIGNS: Blood pressure today is 126/69 mmHg, temperature 97.5 degrees Fahrenheit, pulse 70 and regular, oxygen saturation 98% on room air. HEENT: Head is without trauma. Pupils are reactive. Sclerae nonicteric. Oropharynx is clear. NECK: Supple, no bruits. LUNGS: Clear. CARDIOVASCULAR: Showed regular heart tones. No gallops. ABDOMEN: Soft, no guarding. EXTREMITIES: Showed 2+ pitting edema extending up to his knees. LABORATORY DATA: Reviewed. His last creatinine was 1.3 mg/dL. ASSESSMENT: 1. An 80-year-old gentleman with nausea, vomiting, diarrhea, improved. 2. Osteomyelitis, right heel. 3. Hyponatremia, corrected. 4. Paroxysmal atrial fibrillation, rate controlled. 5. Type 2 diabetes mellitus. 6. Essential hypertension. 7. Known coronary artery disease with previous myocardial infarction. 8. Chronic obstructive pulmonary disease. 9. Obesity and sleep apnea. 10. Benign prostatic hypertrophy and bladder outlet obstruction. PLAN: 1. Continue antibiotics as ordered. 2. I stopped his IV fluids. 3. Intermittent Lasix. He is wet today. 4. Discussion about transferring to [facility] for continued long-term antibiotic therapy. Certainly, there is a possibility he will need amputation in the future. NIGEL KIMBLE MD DR: MARIA L/ariana JOB#: [id number] / [id number]
[2020-08-04] MEDS: VANCOMYCIN PER PHARMACY MC PRN (13:24)
--- NOTE | 2020-08-04 13:24 | NUR ---
Pharmacy Vancomycin Dosing Note S:Consulted to monitor and dose vancomycin started . O:RACHAEL RAGLAND is a 80 year old M with Osteomyelitis, . Height: 6 feet, 0 inches Weight: 89.0 kg [place] Body Weight: 77.60 Adjusted Body Weight: 78.80 Dosing Weight: Actual Other Antibiotics: ZOSYN 3.375GM Q6HRS LABS: Last BUN: 9 Last Creatinine: 1.3 Creatinine Clearance: Last WBC: 9.1 Last Procalcitonin: Tmax (past 24 hours): Microbiology: I/O: Drug Levels: Last Trough level: 24.1 on 08/04/20 at 1030 Last dose given 08/03/20 at 2300 Vancomycin Dosing: Loading Dose: 2000 mg x1 Dosing Weight: Actual Target Trough: 15-20 A: Based on: P: 1. Hold Vancomycin 1250 mg IV q12h redosed pending random level 2. Follow up Random level on 08/05/20 at 1030 3. Pharmacy will continue to monitor, follow and adjust therapy as needed. HELEN MONTALVO [facility], 08/04/20 0252
--- NOTE | 2020-08-04 14:59 | RAD ---
INDICATION: Reason: n/v/d / Spl. Instructions: / History: COMPARISON: February 2019 IMPRESSION: Abdomen: 2 views obtained. Severe calcific atherosclerosis. Degenerative changes the bilateral hips as well as the spine. Air-filled dilated loops of bowel are seen throughout the abdomen including both large and small bowel. Could be from causes such as ileus. Cannot evaluate for free air on supine radiograph. Suspected right lower rib fractures. Electronically signed by: Karthik Guzman MD (08/04/2020 2:56 PM) [id number]
[2020-08-04 15:43] VITALS: BP 134/69
--- NOTE | 2020-08-04 15:52 | NUR ---
PATIENT WAS CALM AND COOPERATIVE UPON ASSESSMENT THIS AM, PT C/O NO APPETITE AND WEAKNESS. PT HAD ONE EPISODE OF VOMITING DURING BREAKFAST TIME, DOCTOR NOTIFIED , ORDER FOR ZOFRAN OBTAINED. WILL CONTINUE TO MONITOR.
[2020-08-04 19:33] VITALS: BP 131/70
[2020-08-04 22:31] VITALS: BP 130/71
[2020-08-05] MEDS: PIPERACILLIN/TAZOBACTAM 3.375 GM in IV NORMAL SALINE 50ML 50 ML IV SCH ×4 (00:38→17:31)
[2020-08-05 05:46] VITALS: BP 117/65
[2020-08-05] MEDS: NON FORMULARY ITEM (Canagliflozin (Invokana) 100 MG) PO SCH (09:00)
[2020-08-05] MEDS: APIXABAN 2.5 MG TABLET PO SCH (09:00)
[2020-08-05] MEDS: METOPROLOL TART IMMED RELEASE 50 MG TABLET PO SCH ×2 (09:01→19:53)
[2020-08-05] MEDS: LINAGLIPTIN 5 MG TABLET PO SCH (09:01)
[2020-08-05] MEDS: POTASSIUM CHLORIDE 20 MEQ TABLET.ER. PO SCH ×2 (09:01→19:54)
[2020-08-05] MEDS: ATORVASTATIN CALCIUM 20 MG TABLET PO SCH (09:01)
[2020-08-05] MEDS: LACTOBACILLUS RHAMNOSUS GG 1 CAPSULE. PO SCH ×2 (09:01→19:54)
[2020-08-05] MEDS ORDERED: VANCOMYCIN RANDOM LEVEL. MC ONE (10:30)
[2020-08-05 10:43] VITALS: BP 110/65
--- NOTE | 2020-08-05 11:04 | PN ---
DATE: 08/05/2020 ATTENDING PHYSICIAN: Dr. Collins and Dr. Kimble. SUBJECTIVE: He is alert, up in a chair. He is swollen, requesting his Lasix. He denied any pain or nausea. OBJECTIVE FINDINGS: VITAL SIGNS: Blood pressure today is 117/65 mmHg, oxygen saturation 97% on room air, pulse is 70 and regular, he is afebrile. HEENT: Head is without trauma. Pupils are reactive. Sclerae nonicteric. Oropharynx appears clear. NECK: Supple, no bruits. LUNGS: Shallow respirations, otherwise clear. CARDIOVASCULAR: Showed distant heart tones. No gallops. ABDOMEN: Soft. EXTREMITIES: Showed 3+ pitting edema upper and lower extremities. The right heel wound is dressed and clean. ASSESSMENT: 1. An 80-year-old gentleman with nausea, vomiting, and diarrhea improved. 2. Osteomyelitis, right heel. 3. Hyponatremia, corrected. 4. Paroxysmal atrial fibrillation. 5. Type 2 diabetes. 6. Essential hypertension. 7. Chronic obstructive pulmonary disease. 8. Volume overload. 9. Obstructive sleep apnea. 10. Benign prostatic hypertrophy with indwelling Chavez catheter. PLAN: 1. Continue antibiotics as ordered. 2. I have held his IV fluids. 3. He will need another dose of Lasix today, he is still wet. 4. Serial chemistry. 5. We are working on placement for long-term antibiotic therapy. NIGEL KIMBLE MD DR: MARIA L/ariana JOB#: [id number] / [id number]
[2020-08-05] MEDS ORDERED: FUROSEMIDE 100 MG/10 ML VIAL IVP ONE (11:10)
--- NOTE | 2020-08-05 13:23 | NUR ---
NURSING NOTE THIS NURSE TAKING OVER PT CARE. REPORT FROM DINAH PAZ. EDWARDO NIX
[2020-08-05 15:16] VITALS: BP 120/57
[2020-08-05 19:42] VITALS: BP 122/68
[2020-08-05] MEDS: APIXABAN 5 MG TABLET. PO SCH (19:54)
[2020-08-05 22:51] VITALS: BP 134/73
[2020-08-06] MEDS: PIPERACILLIN/TAZOBACTAM 3.375 GM in IV NORMAL SALINE 50ML 50 ML IV SCH ×5 (00:07→23:44)
[2020-08-06 05:52] VITALS: BP 121/70
[2020-08-06] MEDS: POTASSIUM CHLORIDE 20 MEQ TABLET.ER. PO SCH ×2 (07:39→20:43)
[2020-08-06] MEDS: LACTOBACILLUS RHAMNOSUS GG 1 CAPSULE. PO SCH ×2 (07:39→20:43)
[2020-08-06] MEDS: LINAGLIPTIN 5 MG TABLET PO SCH (07:40)
[2020-08-06] MEDS: METOPROLOL TART IMMED RELEASE 50 MG TABLET PO SCH ×2 (07:40→20:44)
[2020-08-06] MEDS: ATORVASTATIN CALCIUM 20 MG TABLET PO SCH (07:40)
[2020-08-06] MEDS: APIXABAN 5 MG TABLET. PO SCH ×2 (07:40→20:43)
[2020-08-06] MEDS: ONDANSETRON PF 4 MG/2 ML VIAL. IVP PRN (08:04)
[2020-08-06] MEDS: NON FORMULARY ITEM (Canagliflozin (Invokana) 100 MG) PO SCH (09:00)
[2020-08-06] MEDS ORDERED: VANCOMYCIN RANDOM LEVEL. MC ONE (10:30)
[2020-08-06 11:04] LABS: CALCIUM 8.2 mg/dL (8.5-10.1); CREATININE 1.4 mg/dL (0.7-1.3); GFR 48.8; POTASSIUM 4.3 mmol/L (3.5-5.1)
[2020-08-06 11:05] VITALS: BP 115/63
[2020-08-06] MEDS: FUROSEMIDE 100 MG/10 ML VIAL IVP SCH (12:22)
--- NOTE | 2020-08-06 12:30 | PN ---
DATE: 08/06/2020 ATTENDING PHYSICIAN: Dr. Kimble. SUBJECTIVE: The patient's swelling has improved. He is fairly alert. He denies any pain or nausea. OBJECTIVE FINDINGS: GENERAL: Swelling in the arm is down. VITAL SIGNS: Blood pressure is 121/70 mmHg, oxygen saturation 99% on room air. He is afebrile, temperature 98.1 degrees Fahrenheit, heart rate is controlled at 70 and regular. HEENT: Head is without trauma. Pupils are reactive. Sclerae nonicteric. Oropharynx clear. NECK: Supple, no bruits identified. LUNGS: Otherwise clear. CARDIOVASCULAR: Showed regular heart tones. No gallops. Peripheral pulses palpable and full. ABDOMEN: Soft, obese, protuberant. EXTREMITIES: Show 2+ edema and swelling is down. NEUROLOGIC: Focally intact. SKIN: Warm and dry. ASSESSMENT: 1. An 80-year-old gentleman with nausea and vomiting, improved. 2. Osteomyelitis, right heel. 3. Hyponatremia, corrected. 4. Paroxysmal atrial fibrillation. 5. Essential hypertension. 6. Type 2 diabetes. 7. Chronic obstructive pulmonary disease. 8. Volume overload. 9. Obstructive sleep apnea. PLAN: 1. Continue antibiotics as ordered. 2. IV fluids stopped. 3. Intermittent Lasix, he will need another dose today, he is still on the wet side. 4. Serial chemistries. 5. Working on long-term placement for antibiotic therapy. NIGEL KIMBLE MD DR: MARIA L/ariana JOB#: [id number] / [id number]
[2020-08-06] MEDS: VANCOMYCIN PER PHARMACY MC PRN (15:12)
--- NOTE | 2020-08-06 15:46 | NUR ---
Pharmacy Vancomycin Dosing Note S:Consulted to monitor and dose vancomycin started . O:RACHAEL RAGLAND is a 80 year old M with Osteomyelitis, . Height: 6 feet, 0 inches Weight: 86.9 kg [place] Body Weight: 77.60 Adjusted Body Weight: 81.32 Dosing Weight: Actual Other Antibiotics: ZOSYN 3.375GM Q6HRS LABS: Last BUN: 9 Last Creatinine: 1.3 Creatinine Clearance: 37.0 Last WBC: 9.1 Drug Levels: Last Random level: 18.7 on 07/07/21 at 1030 Last dose given 08/04/20 at 1115 Vancomycin Dosing: Loading Dose: 2000 mg x1 Dosing Weight: Actual Target Trough: 15-20 A: Based on: random trough has decreased to within therapeutic range. Will reinitiate vancomycin and monitor patient closely due to decreased renal function. P: 1. Begin Vancomycin 750 mg IV q12h 2. Follow up Trough level on 08/07/20 at 0930 3. Pharmacy will continue to monitor, follow and adjust therapy as needed. ALDO MAI, 08/06/20 1546
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
--- NOTE | 2020-08-06 16:18 | NUR ---
Wound/Ostomy Care Wound Type/Assessment: Right heel stage III PU, red granulation, slough and adipose exposed. Foul odor has resolved. Treatment Recommendations/Plan: Bedside debridement of slough and adipose done by Gauri Summers, Wound pictured and measures post debridement. Dressed with Yvonne, HFB, and foam. Recommend to change every 2-3 days. Education provided: WC POC and PU prevention. Gauri discussed procedure with PT on phone as well Offloading surface/device: pillows, recommend heel medix boot Recommended Referrals/Tests: none Discharge Recommendations for dressings: Dress with HFB and foam every 2-3 days.
[2020-08-06 16:23] VITALS: BP 112/61
[2020-08-06 19:19] VITALS: BP 120/64
[2020-08-06] MEDS ORDERED: VANCOMYCIN 750 MG in IV NORMAL SALINE 250ML 250 ML IV SCH (21:00)
[2020-08-06 23:13] VITALS: BP_SYST 117; BP_SYST 125; BP_DIAS 65; BP_DIAS 88
[2020-08-07] MEDS: ACETAMINOPHEN 325 MG TABLET PO PRN (00:40)
[2020-08-07] MEDS: PIPERACILLIN/TAZOBACTAM 3.375 GM in IV NORMAL SALINE 50ML 50 ML IV SCH ×4 (05:31→19:51)
[2020-08-07 05:59] VITALS: BP 112/62
--- NOTE | 2020-08-07 06:11 | NUR ---
pt was calm and cooperative with evening. pt is alert and oriented. pt had no complaints of pain this evening. will continue to monitor.
[2020-08-07] MEDS: ATORVASTATIN CALCIUM 20 MG TABLET PO SCH (08:39)
[2020-08-07] MEDS: LACTOBACILLUS RHAMNOSUS GG 1 CAPSULE. PO SCH ×2 (08:39→19:50)
[2020-08-07] MEDS: POTASSIUM CHLORIDE 20 MEQ TABLET.ER. PO SCH ×2 (08:40→19:51)
[2020-08-07] MEDS: APIXABAN 5 MG TABLET. PO SCH ×2 (08:40→19:50)
[2020-08-07] MEDS: FUROSEMIDE 100 MG/10 ML VIAL IVP SCH (08:40)
[2020-08-07] MEDS: LINAGLIPTIN 5 MG TABLET PO SCH (08:40)
[2020-08-07] MEDS: METOPROLOL TART IMMED RELEASE 50 MG TABLET PO SCH ×2 (08:40→19:50)
[2020-08-07] MEDS: NON FORMULARY ITEM (Canagliflozin (Invokana) 100 MG) PO SCH (09:00)
[2020-08-07 10:20] LABS: VANC TR 20.9 mcg/mL (10.0-20.0)
[2020-08-07 11:17] VITALS: BP 112/50
[2020-08-07] MEDS: VANCOMYCIN PER PHARMACY MC PRN (11:59)
--- NOTE | 2020-08-07 12:00 | NUR ---
Pharmacy Vancomycin Dosing Note S:Consulted to monitor and dose vancomycin started . O:RACHAEL RAGLAND is a 80 year old M with Osteomyelitis, . Height: 6 feet, 0 inches Weight: 86.5 kg [place] Body Weight: 77.60 Adjusted Body Weight: 80.96 Dosing Weight: Actual Other Antibiotics: ZOSYN 3.375GM Q6HRS LABS: Last BUN: 9 Last Creatinine: 1.4 Creatinine Clearance: 37.0 Last WBC: 9.1 Last Procalcitonin: Tmax (past 24 hours): Microbiology: I/O: Drug Levels: Last Trough level: 20.9 on 08/07/20 at 0930 Last dose given 08/06/20 at 2100 Vancomycin Dosing: Loading Dose: 2000 mg x1 Dosing Weight: Actual Target Trough: 15-20 A: Based on: P: 1. Change to Vancomycin 1250 mg IV q24h from 750mg q12hr 2. Follow up Trough level on 08/08/20 at 2030 3. Pharmacy will continue to monitor, follow and adjust therapy as needed. HELEN MONTALVO [facility], 08/07/20 1200
--- NOTE | 2020-08-07 12:03 | PN ---
DATE: 08/07/2020 ATTENDING PHYSICIAN: Dr. Kimble. SUBJECTIVE: The patient is alert, sitting in chair independently. He denies any pain or discomfort. OBJECTIVE FINDINGS: VITAL SIGNS: Blood pressure today is 112/62, pulse is 70 and regular. He is afebrile. Oxygen saturation is 97% on room air. HEENT: Head is without trauma. Pupils are reactive. Sclerae nonicteric. Oropharynx clear. NECK: Supple. LUNGS: Otherwise clear. CARDIOVASCULAR: Showed regular heart tones. ABDOMEN: Soft. Chavez catheter still in place. EXTREMITIES: Showed 2+ edema. Swelling of the hands have improved. LABORATORY DATA: His potassium yesterday was 4.3 mEq per liter. Creatinine 1.4 and stable. ASSESSMENT: 1. An 80-year-old gentleman with nausea, vomiting, dehydration, resolved. 2. Osteomyelitis, right heel. 3. Hyponatremia, corrected. 4. Paroxysmal atrial fibrillation. 5. Type 2 diabetes. 6. Essential hypertension. 7. Chronic obstructive pulmonary disease. 8. Obstructive sleep apnea. PLAN: 1. Continue antibiotics as ordered. 2. Lasix as ordered. 3. Serial chemistry. 4. We are awaiting placement. He has agreed to have his Chavez catheter removed tomorrow. NIGEL KIMBLE MD DR: MARIA L/ariana JOB#: [id number] / [id number]
[2020-08-07 15:17] VITALS: BP 124/74
[2020-08-07 20:03] VITALS: BP 127/71
[2020-08-07] MEDS: VANCOMYCIN 1.25 GM in IV NORMAL SALINE 250ML 250 ML IV SCH (21:00)
[2020-08-07 22:43] VITALS: BP 119/63
[2020-08-08 05:40] VITALS: BP 120/64
[2020-08-08] MEDS: PIPERACILLIN/TAZOBACTAM 3.375 GM in IV NORMAL SALINE 50ML 50 ML IV SCH ×4 (06:01→23:16)
[2020-08-08] MEDS: LINAGLIPTIN 5 MG TABLET PO SCH (08:23)
[2020-08-08] MEDS: ATORVASTATIN CALCIUM 20 MG TABLET PO SCH (08:23)
[2020-08-08] MEDS: APIXABAN 5 MG TABLET. PO SCH ×2 (08:23→20:54)
[2020-08-08] MEDS: METOPROLOL TART IMMED RELEASE 50 MG TABLET PO SCH ×2 (08:24→20:53)
[2020-08-08] MEDS: LACTOBACILLUS RHAMNOSUS GG 1 CAPSULE. PO SCH ×2 (08:24→20:53)
[2020-08-08] MEDS: POTASSIUM CHLORIDE 20 MEQ TABLET.ER. PO SCH ×2 (08:24→20:54)
[2020-08-08] MEDS: FUROSEMIDE 100 MG/10 ML VIAL IVP SCH (08:25)
[2020-08-08] MEDS: NON FORMULARY ITEM (Canagliflozin (Invokana) 100 MG) PO SCH (08:25)
--- NOTE | 2020-08-08 10:53 | PN ---
DATE: 08/08/2020 ATTENDING PHYSICIANS: Dr. Collins and Dr. Kimble. SUBJECTIVE: The patient is fairly alert, sitting in his chair. He has no new complaints. He is not in any obvious distress. OBJECTIVE FINDINGS: VITAL SIGNS: Blood pressure today is 120/64 mmHg, temperature 97.6 degrees Fahrenheit, pulse 70 and regular, oxygen saturation 98% on room air. HEENT: Head is without trauma. Pupils are reactive. Sclerae nonicteric. Oropharynx clear. NECK: Supple, no bruits identified. LUNGS: Good breath sounds. CARDIOVASCULAR: Showed distant heart tones. No gallops. ABDOMEN: Soft. EXTREMITIES: Showed 2+ edema, more prominent on the right arm. The heel wound is dressed. ASSESSMENT: 1. Osteomyelitis, right heel. 2. Hyponatremia, corrected. 3. Paroxysmal atrial fibrillation. 4. Essential hypertension. 5. Chronic obstructive pulmonary disease. 6. Obstructive sleep apnea. PLAN: 1. Continue antibiotics as ordered. 2. He would benefit with a PICC line for long-term therapy. 3. Lasix. 4. Serial chemistry. 5. Await placement. He has agreed to have his Chavez catheter removed. NIGEL KIMBLE MD DR: MARIA L/ariana JOB#: [id number] / [id number]
[2020-08-08 11:01] VITALS: BP 120/71
[2020-08-08 15:28] VITALS: BP 134/70
[2020-08-08 19:52] VITALS: BP 131/66
[2020-08-08] MEDS: VANCOMYCIN 1.25 GM in IV NORMAL SALINE 250ML 250 ML IV SCH (21:00)
[2020-08-08 21:18] LABS: VANC TR 14.7 mcg/mL (10.0-20.0)
[2020-08-08] MEDS: VANCOMYCIN PER PHARMACY MC PRN (22:27)
--- NOTE | 2020-08-08 22:27 | NUR ---
Pharmacy Vancomycin Dosing Note S:Consulted to monitor and dose vancomycin started 08/04/20. O:RACHAEL RAGLAND is a 80 year old M with Osteomyelitis, . Height: 6 feet, 0 inches Weight: 86.5 kg [place] Body Weight: 77.60 Adjusted Body Weight: 80.96 Dosing Weight: Actual Other Antibiotics: ZOSYN 3.375GM Q6HRS LABS: Last BUN: 9 Last Creatinine: 1.4 Creatinine Clearance: 48 Last WBC: 9.1 Last Procalcitonin: Tmax (past 24 hours): Microbiology: I/O: 1060/540 Drug Levels: Last Trough level: 14.7 on 08/08/20 at 2030 Last dose given 08/07/20 at 2100 Vancomycin Dosing: Loading Dose: Dosing Weight: Actual Target Trough: 15-20 A: Based on: Trough, Actual Wt and CrCl P: 1. 08/08/202099 Continue Vancomycin 1250 mg IV q24h 2. Follow up Trough level in 5 to 7 days as needed 3. Pharmacy will continue to monitor, follow and adjust therapy as needed. ALVARO DESAI RPH, 08/08/202226 Signed: 08/08/20 at 2232 by ALVARO DESAI RPH PHA
[2020-08-08 22:33] VITALS: BP 126/66
[2020-08-09 05:18] VITALS: BP 127/66
[2020-08-09] MEDS: PIPERACILLIN/TAZOBACTAM 3.375 GM in IV NORMAL SALINE 50ML 50 ML IV SCH ×3 (06:09→17:25)
[2020-08-09] MEDS: LINAGLIPTIN 5 MG TABLET PO SCH (08:44)
[2020-08-09] MEDS: ATORVASTATIN CALCIUM 20 MG TABLET PO SCH (08:45)
[2020-08-09] MEDS: POTASSIUM CHLORIDE 20 MEQ TABLET.ER. PO SCH ×2 (08:45→21:44)
[2020-08-09] MEDS: APIXABAN 5 MG TABLET. PO SCH ×2 (08:45→21:44)
[2020-08-09] MEDS: LACTOBACILLUS RHAMNOSUS GG 1 CAPSULE. PO SCH ×2 (08:45→21:43)
[2020-08-09] MEDS: METOPROLOL TART IMMED RELEASE 50 MG TABLET PO SCH ×2 (08:45→21:44)
[2020-08-09] MEDS: FUROSEMIDE 100 MG/10 ML VIAL IVP SCH (08:46)
[2020-08-09] MEDS: NON FORMULARY ITEM (Canagliflozin (Invokana) 100 MG) PO SCH (09:00)
[2020-08-09 11:25] VITALS: BP 112/67
--- NOTE | 2020-08-09 12:30 | NUR ---
Allergies and reactions y INR BUN Cr Platelets y Blood culture done blood culture results y Order Verifiedy Consent signed y Previous PICC placement y Past Medical/Surgical history and current diagnosis reviewed Patient Medical /Surgical History Related to PICC line placement Arrhythmias Infectious Disease consult Pacemaker Past central line or venous access device placement Vascular/Surgery arms Special considerations for PICC line placement Anticoagulation therapy Arm contractures/ Compromised arm Infections Severe peripheral edema PICC placement indication Caustic medication class drug usage, USP antibiotic usage, Multiple/ Frequent blood draws Name of PICC Nurse Cassy Celestin SQL DATA ANALYST [facility]
--- NOTE | 2020-08-09 13:38 | NUR ---
Procedure: Following complete explanation of the PICC procedure including the indications, risks, and potential complications, informed consent was obtained. The possibility for infection was discussed along with signs, symptoms, and prevention.All thequestions were answered.IV Device Protocol was used. Written and verbal patient education was provided. Hand hygiene performed. Standardized central line checklist was utilized. The patient was placed in the supine position, the arm was prepped with chlorhexidine and patient draped with maximum sterile barrier. mL 3% lidocaine was infiltrated into the skin to provide local anesthesia. A thorough assessment of Right upper extremity completed. Using real-time ultrasound guidance and standardized micro puncture set, the brachial vein was punctured and a peel away sheath was placed using the modified Seldinger technique. A tip location device was used to ensure adequate catheter placement. The catheter was secured using a securement device and an antimicrobial patch was applied directly on the insertion site followed by a transparent dressing. All ports withdraw blood and flush without resistance. Patient tolerated the procedure without apparent complication(s). Single Lumen Power PICC placement successful and uncomplicated. Placement verified by chest x-ray. Complications:None. PT does have some swelling of Right arm, however, he has a pacemaker on his left side. PT did have a fracture repair in his lower right arm a while ago causing the brusing and edema. I was able to visualize where the bracial and bacilic meet, and was able to carry on with the procedure. Cassy Celestin APRN [facility] 44 cm inside 1 cm out.
--- NOTE | 2020-08-09 13:56 | PN ---
DATE: 08/09/2020 ATTENDING PHYSICIAN: Dr. Collins. SUBJECTIVE: The patient is alert. No new complaints. He is comfortable. OBJECTIVE FINDINGS: VITAL SIGNS: Blood pressure today is 127/66 mmHg, pulse 70 and regular, temperature 97.4 degrees Fahrenheit, oxygen saturation 97% on room air. HEENT: Head is without trauma. Pupils are reactive. Sclerae nonicteric. Oropharynx clear. NECK: Supple. LUNGS: Clear. Good breath sounds. CARDIOVASCULAR: Showed regular heart tones. ABDOMEN: Soft, no guarding. EXTREMITIES: Show 2+ edema of the right arm as well as 2+ edema of the right leg. The wound is dressed and clean and dry. ASSESSMENT: 1. An 80-year-old gentleman with osteomyelitis, right heel. 2. Hyponatremia, corrected. 3. Paroxysmal atrial fibrillation with controlled ventricular rate. 4. Essential hypertension with stable blood pressure. 5. Chronic obstructive pulmonary disease. 6. Obstructive sleep apnea. 7. Pedal edema due to fluid resuscitation. PLAN: 1. Continue antibiotics as ordered. 2. He would benefit with a PICC line for long-term therapy. 3. We are working on placement. Tera Peterson has denied the patient's admission. He says in turn because in the past his has reported them to the authorities and therefore they have a history. 4. We are working on [facility]. NIGEL KIMBLE MD DR: MARIA L/ariana JOB#: [id number] / [id number]
--- NOTE | 2020-08-09 14:08 | RAD ---
EXAM: CHEST AP ONLY 08/09/2020 1:23 PM CLINICAL INDICATION:PICC placement COMPARISON:Chest radiograph 08/09/2020 at 6:10 AM TECHNIQUE:AP upright view the chest FINDINGS:Surgical changes of median sternotomy are redemonstrated. There are calcifications in the thoracic aorta. Single lead pacemaker is unchanged. There is a new left PICC with tip over the mid superior vena cava. Cardiomegaly is unchanged. There are new small bilateral pleural effusions and bibasilar opacities, likely atelectasis. Calcified granuloma in the right upper lobe is unchanged. No pneumothorax. No acute osseous abnormality. IMPRESSION: 1. New left PICC in appropriate position. 2. New small bilateral pleural effusions and bibasilar opacities, likely atelectasis. Electronically signed by: Shantell Waldrop MD (08/09/2020 2:05 PM) [id number]
--- NOTE | 2020-08-09 14:46 | NUR ---
NURSING NOTE PT CALM AND COOPERATIVE IN BED UPON MEDICATION ADMINISTRATION AND ASSESSMENT. PT HAD NO COMPLAINTS OF PAIN. PT COMPLIANT WITH MEDICATION. PT RESTING IN BED. WILL CONTINUE TO MONITOR. DINAH PHILLIPS
[2020-08-09 15:45] VITALS: BP 127/68
[2020-08-09 19:56] VITALS: BP 134/68
[2020-08-09 21:14] LABS: VANC TR 20.4 mcg/mL (10.0-20.0)
[2020-08-09 22:37] VITALS: BP 133/68
[2020-08-09] MEDS: ACETAMINOPHEN 325 MG TABLET PO PRN (22:37)
[2020-08-10] MEDS: PIPERACILLIN/TAZOBACTAM 3.375 GM in IV NORMAL SALINE 50ML 50 ML IV SCH ×5 (00:26→23:34)
--- NOTE | 2020-08-10 00:52 | NUR ---
NURSING NOTE APON ASSESSMENT PT WAS RESTING IN BED. VITALS STABLE. PT WAS CALM AND PLEASANT DURING MED PASS. PTS DRESSING ON HEAL WOUND HAD COME OFF NURSE REPLACED IT WILL A FOAM DRESSING. PT LATER COMPLAINED OF PAIN IN HIS HEAL. PT WAS GIVEN TYLENOL AND RT HEAL IS FLOATING OFF 2 PILLOWS. PT CURRENTLY RESTING IN BED. WILL CONTINUE TO MONITOR.
[2020-08-10 05:45] VITALS: BP 125/70
[2020-08-10] MEDS: APIXABAN 5 MG TABLET. PO SCH ×2 (08:17→20:42)
[2020-08-10] MEDS: POTASSIUM CHLORIDE 20 MEQ TABLET.ER. PO SCH ×2 (08:17→20:42)
[2020-08-10] MEDS: METOPROLOL TART IMMED RELEASE 50 MG TABLET PO SCH ×2 (08:17→20:42)
[2020-08-10] MEDS: LINAGLIPTIN 5 MG TABLET PO SCH (08:17)
[2020-08-10] MEDS: LACTOBACILLUS RHAMNOSUS GG 1 CAPSULE. PO SCH ×2 (08:17→20:42)
[2020-08-10] MEDS: FUROSEMIDE 100 MG/10 ML VIAL IVP SCH (08:18)
[2020-08-10] MEDS: NON FORMULARY ITEM (Canagliflozin (Invokana) 100 MG) PO SCH (09:00)
[2020-08-10] MEDS: ATORVASTATIN CALCIUM 20 MG TABLET PO SCH (10:52)
[2020-08-10 11:39] VITALS: BP 104/63
--- NOTE | 2020-08-10 12:01 | PN ---
DATE: 08/10/2020 ATTENDING PHYSICIAN: Dr. Collins, Dr. Kimble. SUBJECTIVE: The patient is alert and comfortable. He denied any new complaints. OBJECTIVE FINDINGS: VITAL SIGNS: Blood pressure today is 125/70 mmHg, pulse 70 and regular, temperature 97.8 degrees Fahrenheit, oxygen saturation 98% on room air. HEENT: Head is without trauma. The pupils are reactive. The sclerae are nonicteric. The oropharynx is clear. NECK: Supple. There is no stridor. LUNGS: Good breath sounds. CARDIOVASCULAR: Showed regular heart tones. No gallops. Peripheral pulses are palpable and full. ABDOMEN: Soft, nontender, no guarding or rebound tenderness. EXTREMITIES: Showed less edema of the right arm. He still has edema of the right leg. The wound is clean and dressed. ASSESSMENT: 1. An 80-year-old gentleman with osteomyelitis, right heel. 2. Dehydration, rehydrated. 3. Hyponatremia, corrected. 4. Paroxysmal atrial fibrillation with rate controlled. 5. Essential hypertension. 6. Chronic obstructive pulmonary disease. 7. Obstructive sleep apnea. 8. Pedal edema due to fluid resuscitation. PLAN: 1. Continue antibiotics as ordered. 2. PICC lines in place. 3. We are working on placement at the [facility]. It is still pending at this time. NIGEL KIMBLE MD DR: MARIA L/ariana JOB#: [id number] / [id number]
[2020-08-10 12:33] LABS: CREATININE 1.5 mg/dL (0.7-1.3)
[2020-08-10] MEDS: VANCOMYCIN 1 GM in IV NORMAL SALINE 250ML 250 ML IV SCH (14:52)
--- NOTE | 2020-08-10 16:44 | NUR ---
NURSING NOTE: PT IN BED UPON MEDICATION ADMINISTRATION AND ASSESSMENT. PT CALM AND COOPERATIVE. PT COMPLIANT WITH MEDICATION. WOUND DRESSING CHANGED D/T DRAINAGE. PT IN BED MOST OF THE DAY, UP IN THE CHAIR FOR MEALS. PT COMPLIANT WITH THERAPY. PT ENCOURAGED TO PRACTICE EXERCISES OUTSIDE OF THERAPY TIME. PT RESTING IN BED. WILL CONTINUE TO MONITOR. DINAH PHILLIPS
[2020-08-10 19:13] VITALS: BP 123/65
--- NOTE | 2020-08-11 00:12 | NUR ---
Pt resting comfortably in bed at shift change. Pt calm and cooperative with meds and assessment. Dressing to right foot c/d/i with heel medix boot on. Pt propped on pillows with turning schedule q2hrs. Pt denies any pain. Chavez in place, draining cloudy yellow urine. Pt incontinent of stool, soft but formed. Pt cleansed and brief changed. Pt quickly back to sleep. Call light in reach.
[2020-08-11 05:21] VITALS: BP 133/64
[2020-08-11] MEDS: PIPERACILLIN/TAZOBACTAM 3.375 GM in IV NORMAL SALINE 50ML 50 ML IV SCH ×2 (06:00→11:54)
[2020-08-11] MEDS: ONDANSETRON PF 4 MG/2 ML VIAL. IVP PRN (08:05)
[2020-08-11] MEDS: NON FORMULARY ITEM (Canagliflozin (Invokana) 100 MG) PO SCH (08:25)
[2020-08-11] MEDS: APIXABAN 5 MG TABLET. PO SCH (08:26)
[2020-08-11] MEDS: LINAGLIPTIN 5 MG TABLET PO SCH (08:26)
[2020-08-11] MEDS: LACTOBACILLUS RHAMNOSUS GG 1 CAPSULE. PO SCH (08:26)
[2020-08-11] MEDS: ATORVASTATIN CALCIUM 20 MG TABLET PO SCH (08:26)
[2020-08-11] MEDS: METOPROLOL TART IMMED RELEASE 50 MG TABLET PO SCH (08:27)
[2020-08-11] MEDS: POTASSIUM CHLORIDE 20 MEQ TABLET.ER. PO SCH (08:27)
--- NOTE | 2020-08-11 08:47 | NUR ---
NURSING NOTE PT FELT NAUSEATED THIS AM, PRN ZOFRAN GIVEN. UPON REASSESSMENT, PT FELT BETTER. MORNING MEDICATIONS GIVEN WITH BREAKFAST TRAY. PT HAS TOLERATED WELL THUS FAR. PT STATES SOMETIMES HE JUST GETS NAUSEATED. WILL CONTINUE TO MONITOR. DINAH BROOKE.
[2020-08-11] MEDS ORDERED: FUROSEMIDE 40 MG TABLET PO SCH (09:00)
[2020-08-11 10:27] VITALS: BP 131/68
[2020-08-11 12:33] LABS: CREATININE 1.2 mg/dL (0.7-1.3); GFR 58.3
[2020-08-11] MEDS ORDERED: FURO40TA4 PO (12:49)
[2020-08-11] MEDS ORDERED: PIPE3.377 IV (12:49)
--- NOTE | 2020-08-11 13:01 | DISCH ---
DISCHARGE ORDERS DISCHARGE DATE: Aug 11, 2020 FINAL DIAGNOSIS acute kidney injury right heel osteomyelitis CONDITION AT DISCHARGE: Stable Code Status: Full SNF STAY <30 DAYS: Yes POST DISCHARGE ORDERS: ACTIVITY ORDERS: Activity as tolerated WEIGHT BEARING STATUS: As tolerated DIET AFTER DISCHARGE: Cardiac DISCHARGE MEDICATIONS: Home Meds Active Scripts Swoalkweasyc-Canx-Nqavhjbg,Iso (ZOSYN 3.375 GM GALAXY BAG) 3.375 Gm/50 Ml Froz.piggy, 3.375 GM IV Q6H for osteo for 35 Days, #120 EACH Prov:ERICK NOLAN MD 08/11/20 Furosemide (FUROSEMIDE) 40 Mg Tablet, 1 TAB PO DAILY for chf, #30 TAB 5 Refills Prov:ERICK NOLAN MD 08/11/20 Reported Medications Diltiazem Hcl (CARDIZEM CD) 180 Mg Cap.er.24h, 1 CAP PO DAILY for HIGH BLOOD PRESSURE LAST DOSE GIVEN: DATE: TODAY TIME: AM NEXT DOSE DUE: DATE: TOMORROW TIME: AM 01/14/19 Apixaban (ELIQUIS) 5 Mg Tablet, 5 MG PO BID for IRREGULAR HEART RATE LAST DOSE GIVEN: DATE: TODAY TIME: AM NEXT DOSE: DATE: TODAY TIME: PM 01/14/19 Canagliflozin (INVOKANA) 100 Mg Tablet, 100 MG PO DAILY for DIABETES LAST DOSE GIVEN: DATE: TODAY TIME: AM NEXT DOSE DUE: DATE: TOMORROW TIME: AM 01/14/19 Linagliptin (TRADJENTA) 5 Mg Tablet, 1 TAB PO DAILY for DIABETES LAST DOSE GIVEN: DATE: TODAY TIME: AM NEXT DOSE DUE: DATE: TOMORROW TIME: AM 01/14/19 Potassium Chloride (POTASSIUM CHLORIDE) 10 Meq Tablet.er, 20 MEQ PO BID for POTASSIUM SUPPLEMENT LAST DOSE GIVEN: DATE: TODAY TIME: AM NEXT DOSE DUE: DATE: TOMORROW TIME: AM 01/14/19 Atorvastatin Calcium (ATORVASTATIN CALCIUM) 40 Mg Tablet, 1 TAB PO DAILY for HIGH CHOLESTEROL LAST DOSE GIVEN: DATE: TODAY TIME: AM NEXT DOSE DUE: DATE: TOMORROW TIME: AM 01/14/19 Nebivolol Hcl (BYSTOLIC) 10 Mg Tablet, 1 TAB PO DAILY for HEART FAILURE LAST DOSE GIVEN: DATE: TODAY TIME: AM NEXT DOSE DUE: DATE: TOMORROW TIME: AM 01/14/19 Discontinued Reported Medications Metolazone (METOLAZONE) 5 Mg Tablet, 5 MG PO DAILY for FLUID RETENTION 07/30/20 Furosemide (FUROSEMIDE) 40 Mg Tablet, 1 TAB PO BID for FLUID RETENTION LAST DOSE GIVEN: DATE: TODAY TIME: AM NEXT DOSE DUE: DATE: TOMORROW TIME: AM 02/05/19 ERICK NOLAN MD Aug 11, 2020 13:01
[2020-08-11] MEDS: VANCOMYCIN 1 GM in IV NORMAL SALINE 250ML 250 ML IV SCH (14:00)
[2020-08-11 14:25] VITALS: BP 120/66
--- NOTE | 2020-08-11 15:08 | DS ---
DATE OF DISCHARGE: 08/11/2020 HOSPITAL COURSE: The patient is an 80-year-old male patient who was admitted through the Emergency Room on 07/30/2020 with recurrent episodes of nausea, vomiting and diarrhea. He does have also pressure ulcer on his right heel, treated with wound vacuum-assisted closure device. He was followed by home health agency and when he was seen by the home health nurse, she referred him to the Emergency Room for further evaluation and treatment. Initially, we thought he might have C. diff colitis, so we sent stool for C. diff, started him empirically on oral vancomycin. However, subsequently the stool for C. diff was negative and we did also test him for coronavirus. The PCR was also found to be not detectable. His right heel and right foot was swollen. There was a foul smell and we did consult the wound care team. I also ordered bone scan, which basically showed that there is increased radiotracer uptake in the right heel on flow, blood pool and delayed phases; finding consistent with osteomyelitis of the right heel. The patient was started on IV vancomycin as well as Zosyn. We took a culture from the wound, which basically showed that there are polymicrobial growth of gram-positive cocci and mixed aerobic nguyễn, showed also many Corynebacterium striatum, Enterococcus faecalis, Streptococcus intermedius and moderate anaerobic gram-negative rods including Porphyromonas somerae, Corynebacterium striatum, Streptococcus faecalis and the Enterococcus faecalis was sensitive to vancomycin as well as penicillin and linezolid. The patient was started on IV vancomycin and Zosyn and the patient was discharged to [facility] to continue with antibiotics for a total of 34 days from today or a total of 6 weeks. His CBC, CMP, sed rate and CRP need to be checked once a week and his vancomycin trough level should be checked on Sunday, Sunday, Sunday and the vancomycin level should be adjusted accordingly by the medical data analyst of that facility. We will arrange for him to be seen by the Infectious Disease specialist in 2 weeks' time. PHYSICAL EXAMINATION: GENERAL: When I examined him today, he looked pale, not jaundiced, cyanosed or thyromegaly. No jugular venous distention. Mild bilateral lower limb edema. VITAL SIGNS: His heart rate was 70, blood pressure was 131/68, temperature was 97.8, respiratory rate was 20, and oxygen saturation was 97% on room air. HEAD, EYES, EARS, NOSE AND THROAT: Showed normocephalic, atraumatic. NECK: Supple. HEART: Showed normal first and second heart sounds. No gallop, rub or murmur. CHEST: Clear to auscultation. No crepitation or rhonchi. ABDOMEN: Distended, soft, nontender. NEUROLOGIC: He was awake, alert, responding appropriately. All cranial nerves are intact. He moves extremities without difficulty, though is mostly bedbound. He has right heel decubitus ulcer covered with wound vacuum-assisted closure device. His intake was 1190, output was 1750. LABORATORY DATA: His most recent lab work showed as of yesterday, his serum creatinine is 1.5, estimated GFR was 45. His white cell count was 9100, hemoglobin 10.7, hematocrit 34, MCV 85 and platelet count of 146,000. As of yesterday, his vancomycin trough level was 14.3. His stool for Campylobacter, Shigella, salmonella are all negative. His stool for C. diff toxins by PCR was negative and coronavirus by PCR was negative and undetectable. DISCHARGE MEDICATIONS: He will be discharged to [facility] to continue on furosemide 40 mg once a day. He is on piperacillin and tazobactam 3.375 grams IV every 6 hours, apixaban 5 mg twice a day, atorvastatin calcium 40 mg daily, Invokana 100 mg daily, diltiazem for Cardizem 180 mg once a day, linagliptin for Tradjenta 5 mg once a day, Bystolic 10 mg once a day, potassium chloride 20 mEq twice a day. He should also be on Flagyl 500 mg 3 times a day and vancomycin 1250 mg once a day. FINAL DISCHARGE DIAGNOSES: 1. An 80-year-old with osteomyelitis of the right heel for which he is on IV vancomycin and Zosyn as well as Flagyl. He has a polymicrobial growth from his wound culture. 2. Dehydration, resolved. 3. Hyponatremia, resolved. 4. Paroxysmal atrial fibrillation, rate controlled, well anticoagulated. 5. Hypertension, reasonably controlled. 6. Chronic obstructive pulmonary disease, clinically quiescent. 7. Obstructive sleep apnea. 8. Bilateral pedal edema due to fluid resuscitation. ERICK NOLAN MD DR: Iker JOB#: [id number] / [id number]
--- NOTE | 2020-08-11 15:41 | NUR ---
NURSING NOTE DISCHARGE PT DISCHARGED TO [facility]. REPORT GIVEN TO FAISAL AT FACILITY. PT GIVEN WRITTEN AND VERBAL DISCHARGE INSTRUCTIONS. PACKET SENT WITH PT TO FACILITY. PT HAS SEVERAL ORDERS IN HIS PACKET FROM DR NOLAN, FACILITY MADE AWARE OF ORDERS. DINAH BROOKE.
== END 2020-08-11 15:43 | DRG 637 ==
LOC: ER 10:24 → 1 SOUTH 11:47
PROVIDERS: ADMIT Internal Medicine; ATTEND Hospitalist
DX: E11.69 Type 2 diabetes mellitus with other specified complication (principal); L89.613 Pressure ulcer of right heel, stage 3; A04.72 Enterocolitis due to Clostridium difficile, not specified as recurrent; E87.1 Hypo-osmolality and hyponatremia; M86.9 Osteomyelitis, unspecified; N13.8 Other obstructive and reflux uropathy; N17.0 Acute kidney failure with tubular necrosis; E66.01 Morbid (severe) obesity due to excess calories; E78.00 Pure hypercholesterolemia, unspecified; E78.5 Hyperlipidemia, unspecified; E86.0 Dehydration; E87.6 Hypokalemia; G47.33 Obstructive sleep apnea (adult) (pediatric); I10 Essential (primary) hypertension; I25.10 Atherosclerotic heart disease of native coronary artery without angina pectoris; I25.2 Old myocardial infarction; I48.0 Paroxysmal atrial fibrillation; J44.9 Chronic obstructive pulmonary disease, unspecified; N40.1 Benign prostatic hyperplasia with lower urinary tract symptoms; Z82.5 Family history of asthma and other chronic lower respiratory diseases; Z87.891 Personal history of nicotine dependence; Z95.1 Presence of aortocoronary bypass graft; Z20.828 Contact with and (suspected) exposure to other viral communicable diseases
CPT/HCPCS: 36415; 36569; 71045; 73090; 73620; 74018; 78315; 80048; 80053; 80202; 81001; 82565; 83605; 83690; 85025; 85027; 86140; 87071; 87075; 87076; 87077; 87086; 87493; 87505; 90471; 93005; 96361; 96365; 96375; A9503; J1940; J2405; J2543; J3370; J3490; J7040; J7050; 90686; 97110; 97530; 97535; 99285-25; J7030; U0003-CS

== ENCOUNTER 2020-08-20 19:01 | Inpatient (IN) | payer MEDICARE ==
[~2020-08-20] VITALS: Ht 182.9 cm; Wt 92.4 kg
[~2020-08-20 19:01] MED LIST changes: +LISI2.5T PO; +METO5TAB4 PO; +PIPE3.377 IV
[2020-08-20] MEDS ORDERED: ONDANSETRON PF 4 MG/2 ML VIAL. IVP ONE (19:30)
[2020-08-20] MEDS ORDERED: IV NORMAL SALINE 1,000ML 1,000 ML IV ONE (19:30)
--- NOTE | 2020-08-20 19:45 | PHYS DOC ---
Past History Past Medical History: A-Fib, CAD, CHF, COPD, Diabetes, High Cholesterol, Hypertension, Other Additional Past Medical Histor: anticoag therapy - eliquis Past Surgical History: Coronary Bypass Surgery, Pacemaker Alcohol Use: None Drug Use: None General Adult EDM: Chief Complaint: DEHYDRATION HPI: HPI: 80-year-old male presents from [facility] re[facility] with diarrhea and vomiting. The patient has been having intermittent vomiting for a couple of months. He is currently being treated with a PICC line for a foot wound. He is getting Zosyn. He is told that the wound is improving. The patient continues to have diarrhea constantly. He is unable to control it. He is very concerned about being dehydrated. He is not able to eat or drink anything he says. No reported fever or chills. He has urinary catheter that was placed about 10 days ago. He has been checked for C. difficile a couple of times the last time was 10 days ago. He denies abdominal pain. Review of Systems: Review of Systems: Constitutional: Denies fever or chills Eyes: Denies change in visual acuity HENT: Denies nasal congestion or sore throat Respiratory: Denies cough or shortness of breath Cardiovascular: Denies chest pain or edema GI: Denies abdominal pain. Diarrhea, vomiting : Chavez catheter Musculoskeletal: Denies back pain or joint pain Integument: Denies rash Neurologic: Denies headache, focal weakness or sensory changes Endocrine: Denies polyuria or polydipsia Lymphatic: Denies swollen glands Psychiatric: Denies depression or anxiety Heart Score: Risk Factors: Risk Factors: DM, Current or recent (<one month) smoker, HTN, HLP, family history of CAD, obesity. Risk Scores: Score 0 - 3: 2.5% MACE over next 6 weeks - Discharge Home Score 4 - 6: 20.3% MACE over next 6 weeks - Admit for Clinical Observation Score 7 - 10: 72.7% MACE over next 6 weeks - Early Invasive Strategies Current Medications: Current Meds: Current Medications Medications (Trade) Dose Ordered Sig/[place] Start Time Stop Time Status Last Admin Dose Admin Ondansetron HCl (Zofran) 4 mg 1X ONCE 08/20/20 19:30 08/20/20 19:32 DC 08/20/20 19:27 4 MG Sodium Chloride 1,000 ml @ 1,000 mls/hr 1X ONCE 08/20/20 19:30 08/20/20 20:29 08/20/20 19:27 1,000 MLS/HR Allergies: Allergies: Allergies Coded Allergies Type Severity Reaction Last Updated Verified No Known Drug Allergies 08/20/20 No Physical Exam: PE: Constitutional: Well developed, well nourished, no acute distress, non-toxic appearance. [] HENT: Normocephalic, atraumatic, bilateral external ears normal, oropharynx moist, no oral exudates, nose normal. [] Eyes: PERRLA, EOMI, conjunctiva normal, no discharge. [] Neck: Normal range of motion, no tenderness, supple, no stridor. [] Cardiovascular: Heart rate regular rhythm, no murmur [] Lungs & Thorax: Bilateral breath sounds clear to auscultation [] Abdomen: Bowel sounds normal, soft, no tenderness, no masses, no pulsatile masses. [] Skin: Warm, dry, no erythema, no rash. [] Back: No tenderness, no CVA tenderness. [] Extremities: Right lower extremity wrapped and in a specialty boot. PICC line in the right upper arm. [] Neurologic: Alert and oriented X 3, normal motor function, normal sensory f unction, no focal deficits noted. [] Psychologic: Affect normal, judgement normal, mood concerned. [] EKG: EKG: [] Radiology/Procedures: Radiology/Procedures: [] Course & Med Decision Making: Course & Med Decision Making Pertinent Labs and Imaging studies reviewed. (See chart for details) Patient was given a liter normal saline. He is had some urine output. His creatinine is 2.9. This is significantly higher than his baseline of 1.7. He does appear to be dehydrated. We have had no stool output in the ER. I do think he should be retested for C. difficile if we get output. I spoke with Dr. Tavares about the patient and he has agreed to admit him for dehydration. [] Dragon Disclaimer: Dragstefani Disclaimer: This electronic medical record was generated, in whole or in part, using a voice recognition dictation system. Departure Departure: Impression: Primary Impression: Dehydration Additional Impression: Foot osteomyelitis, right Disposition: 09 ADMITTED INPT THIS HOSP Admitting Physician: Herrera Tavares Condition: STABLE Referrals: SHERRIE MCKINNEY MD (PCP) YOMAIRA HATCH DO Aug 20, 2020 19:45
[2020-08-20 20:00] LABS: CLARITY,URINE CLOUDY; COLOR,URINE YELLOW; GLUCOSE,URINE NEG (NEG)
[2020-08-20 20:01] LABS: BASO # 0.1 x10^3/uL (0.0-0.2); BASO % 1 % (0-3); EOS # 0.2 x10^3/uL (0.0-0.7); EOS % 3 % (0-3); HEMATOCRIT 35.3 % (39.0-53.0); HEMOGLOBIN 11.3 g/dL (13.0-17.5); LYMPH # 0.8 x10^3/uL (1.0-4.8); LYMPH % 10 % (24-48); MEAN CORPUSCULAR HEMOGLOBIN 26 pg (25-35); MEAN CORPUSCULAR HGB CONC 32 g/dL (31-37); MEAN CORPUSCULAR VOLUME 82 fL (79-100); MONO # 0.8 x10^3/uL (0.0-1.1); MONO % 9 % (0-9); NEUT # 6.6 x10^3uL (1.8-7.7); NEUT % 77 % (31-73); PLATELET COUNT 92 x10^3/uL (140-400); RED BLOOD COUNT 4.31 x10^6/uL (4.30-5.70); WHITE BLOOD COUNT 8.5 x10^3/uL (4.0-11.0)
[2020-08-20 20:02] LABS: NITRITE,URINE NEG (NEG); UROBILINOGEN,URINE 0.2 mg/dL (0.2 mg/dL)
[2020-08-20 20:06] LABS: RBC,URINE OCC /HPF (0-2); WBC,URINE >40 /HPF (0-4)
[2020-08-20 20:07] LABS: BACTERIA,URINE FEW /HPF (0-FEW); YEAST,URINE PRESENT /HPF
[2020-08-20 20:10] LABS: BILIRUBIN,URINE NEG (NEG); CALCIUM 8.2 mg/dL (8.5-10.1); CREATININE 2.9 mg/dL (0.7-1.3); POTASSIUM 4.1 mmol/L (3.5-5.1)
[2020-08-20 20:16] LABS: ALBUMIN/GLOBULIN RATIO 0.6 (1.0-1.7); TOTAL BILIRUBIN 0.5 mg/dL (0.2-1.0); TOTAL PROTEIN 5.2 g/dL (6.4-8.2)
[2020-08-20] MEDS ORDERED: ONDANSETRON PF 4 MG/2 ML VIAL. IVP PRN (21:30)
[2020-08-21 00:47] VITALS: BP 148/77
[2020-08-21] MEDS ORDERED: IV NORMAL SALINE 1,000ML 1,000 ML IV SCH (02:00)
[2020-08-21] MEDS ORDERED: oxyCODONE/APAP 10/325 1 TAB TABLET PO PRN (02:00)
[2020-08-21] MEDS ORDERED: ZINC220T3 PO (05:41)
[2020-08-21] MEDS ORDERED: ASCO500C PO (05:41)
[2020-08-21] MEDS ORDERED: PROM12.58 PO (05:41)
[2020-08-21] MEDS ORDERED: [UNRECOGNIZED DRUG - CODE] TP (05:41)
[2020-08-21] MEDS ORDERED: ONDA4TAB12 PO (05:41)
[2020-08-21] MEDS ORDERED: LACT1CAP6 PO (05:41)
[2020-08-21] MEDS ORDERED: VANC750F IV (05:41)
[2020-08-21] MEDS ORDERED: HYDR-3165 PO (05:41)
[2020-08-21] MEDS ORDERED: METO50TA6 PO (05:41)
[2020-08-21] MEDS ORDERED: ONDA-84 PO (05:41)
[2020-08-21 05:45] VITALS: BP 124/54
[2020-08-21 07:32] LABS: GFR 20.2; POTASSIUM 3.7 mmol/L (3.5-5.1)
--- NOTE | 2020-08-21 10:10 | HP ---
ADMIT DATE: 08/21/2020 ATTENDING PHYSICIAN: Dr. Kimble. CHIEF COMPLAINT: Dehydration. HISTORY OF PRESENT ILLNESS: The patient is an 80-year-old gentleman well known to us. He was discharged from this hospital 2 weeks ago to go to [facility] for continued antibiotic therapy for osteomyelitis of the right heel. He had a PICC line. The patient was getting Zosyn. He is having difficulty with maintaining fluids. He has had diarrhea. A Clostridium difficile toxin assay has been sent off and is pending. He is unable to eat or drink anything. No reported fevers or chills. He had a urinary catheter placed 10 days ago. Last time, he had a negative C. diff toxin 10 days ago. He denies any abdominal pain. In the ED, his creatinine was up to 2.9 mg percent. Clearly, he appears dehydrated. He is admitted for further treatment and evaluation. PAST MEDICAL HISTORY: Significant for paroxysmal atrial fibrillation, known coronary artery disease, congestive heart failure, COPD, type 2 diabetes, chronic renal failure, high cholesterol, hypertension and generalized debilitation. PAST SURGICAL HISTORY: Coronary artery bypass and graft, permanent pacemaker. ALLERGIES: He has no recorded drug allergies. CURRENT MEDICINES: When he was discharged to [facility] include the following: He was on Eliquis 5 mg b.i.d., ascorbic acid, Lipitor, diltiazem 180 mg daily, hydrocodone p.r.n., lactobacillus, linagliptin (Tradjenta), metoprolol, miconazole, ondansetron, Zosyn 3.375 q. 6 hours, potassium supplementation, vancomycin intravenously and zinc sulfate. SOCIAL HISTORY: He is a nonsmoker, nondrinker. FAMILY HISTORY: Noncontributory. REVIEW OF SYSTEMS: Significant for poor appetite. He has had diarrhea. He denied any fevers, chills, chest pains or palpitation. All other systems reviewed and turned to be negative. PHYSICAL EXAMINATION: GENERAL: When I saw him, this is a chronically ill-appearing elderly gentleman. INITIAL VITAL SIGNS: Showed a blood pressure 142/61, pulse is 74 and regular. He was afebrile. Oxygen saturation 95% on room air. HEENT: Head is without trauma. Pupils are reactive. Sclerae nonicteric. Oropharynx is clear. LUNGS: Shallow respirations. CARDIOVASCULAR: Showed distant heart tones. No gallops. ABDOMEN: Soft, no guarding. Bowel sounds were hypoactive. EXTREMITIES: Showed trace edema. The right ankle is in a cast, circulation distally is intact. SKIN: Otherwise warm and dry. PERTINENT LABORATORY AND X-RAY STUDIES: His hemoglobin on admission was 11.3 g/dL with white count 8500. Sodium was 131 mEq, potassium 4.1 mEq. Creatinine 2.9 mg percent, BUN 15. Transaminases within normal range. ASSESSMENT: An 80-year-old gentleman with: 1. Acute on chronic renal failure. 2. Osteomyelitis, right heel. 3. Diarrhea, rule out Clostridium difficile colitis. 4. History of congestive heart failure, compensated. 5. Generalized debilitation. 6. Paroxysmal atrial fibrillation. 7. Chronic anticoagulation. 8. Type 2 diabetes mellitus. PLAN: 1. Admit to the inpatient unit. 2. Gentle IV hydration. 3. Serial chemistries. 4. Continue antibiotics ordered. 5. Stool specimen for Clostridium difficile toxin assay. 6. Followup lab work as ordered. NIGEL KIMBLE MD DR: MARIA L/ariana JOB#: [id number] / [id number]
[2020-08-21 10:21] VITALS: BP 145/67
[2020-08-21 15:22] VITALS: BP 155/73
[2020-08-21] MEDS: PIPERACILLIN/TAZOBACTAM 3.375 GM in IV NORMAL SALINE 50ML 50 ML IV SCH (16:08)
[2020-08-21] MEDS ORDERED: MORPHINE SULFATE 4 MG/ML DISP.SYRIN. IV PRN (19:45)
[2020-08-21 20:33] VITALS: BP 125/66
[2020-08-21 23:36] VITALS: BP 124/66
[2020-08-22] MEDS: PIPERACILLIN/TAZOBACTAM 3.375 GM in IV NORMAL SALINE 50ML 50 ML IV SCH ×2 (02:48→16:26)
[2020-08-22 04:49] LABS: CALCIUM 7.9 mg/dL (8.5-10.1); CREATININE 3.2 mg/dL (0.7-1.3); GFR 18.8; POTASSIUM 3.6 mmol/L (3.5-5.1)
[2020-08-22 06:09] VITALS: BP 129/64
[2020-08-22 10:25] VITALS: BP 128/63
--- NOTE | 2020-08-22 12:19 | PN ---
DATE: 08/22/2020 ATTENDING PHYSICIAN: Dr. Kimble. SUBJECTIVE: The patient is weak. He is very alert. He told me that he had been on dialysis several months ago for a month. He does not want to do that again. I informed that he has acute renal failure, superimposed on chronic renal failure. Clostridium difficile toxin was negative; however, creatinine has increased to 3.2 mg/dL. The IVs were held because he was complaining of swelling in his lower extremities. We have not given him any more Lasix due to the elevated creatinine. Potassium is maintained at 3.6 mEq. BUN is 17. OBJECTIVE FINDINGS: VITAL SIGNS: Showed a blood pressure 129/64, oxygen saturation 98% on room air. HEENT: Head is without trauma. Pupils are reactive. Sclerae nonicteric. Oropharynx clear. NECK: Supple, no bruits. LUNGS: Good breath sounds. CARDIOVASCULAR: Showed regular heart tones. No gallops. ABDOMEN: Soft, no guarding. EXTREMITIES: Showed 3+ pitting edema. NEUROLOGIC: Very weak. Speech is fluent. SKIN: Warm and dry. ASSESSMENT: 1. An 80-year-old gentleman with [id number] renal failure. 2. Osteomyelitis, right heel. 3. Diarrhea, resolved, Clostridium difficile toxin was negative. 4. History of congestive heart failure, compensated. 5. Generalized debilitation. 6. Paroxysmal atrial fibrillation. 7. Type 2 diabetes mellitus. 8. Chronic anticoagulation. PLAN: 1. Serial chemistries. 2. IV hydration has been held, but we cannot restart the Lasix due to his worsening renal failure. 3. Antibiotic dose has been adjusted due to renal clearance. 4. Long discussion with his this morning regarding end of life care. To be aggressive, I think the patient will eventually need an amputation of the right foot below the knee. In addition, he needs aggressive diuresis and hemodialysis. He does not want any of this. Therefore, I have talked with the to consider getting hospice involved in his care. In the meantime, we will keep him comfortable. NIGEL KIMBLE MD DR: MARIA L/ariana JOB#: [id number] / [id number]
[2020-08-22 15:06] VITALS: BP 145/71
[2020-08-22 20:29] VITALS: BP 143/59
[2020-08-22] MEDS: NYSTATIN TOPICAL POWDER 15GM BOTTLE. TP SCH (21:46)
[2020-08-22 23:07] VITALS: BP 137/70
[2020-08-23] MEDS: PIPERACILLIN/TAZOBACTAM 3.375 GM in IV NORMAL SALINE 50ML 50 ML IV SCH ×2 (03:00→15:00)
[2020-08-23 05:28] VITALS: BP 115/64
[2020-08-23 07:07] LABS: CALCIUM 7.7 mg/dL (8.5-10.1); CREATININE 3.2 mg/dL (0.7-1.3); GFR 18.8; POTASSIUM 3.2 mmol/L (3.5-5.1)
[2020-08-23] MEDS: NYSTATIN TOPICAL POWDER 15GM BOTTLE. TP SCH ×2 (09:00→20:33)
[2020-08-23 10:05] VITALS: BP 122/65
--- NOTE | 2020-08-23 13:04 | PN ---
DATE: 08/23/2020 ATTENDING PHYSICIAN: Dr. Kimble. SUBJECTIVE: The patient is still very weak. He is quite alert though he is not in obvious distress. He denied any pains. Nevertheless, he remains bedridden and unable to walk because of his foot infection. Clostridium difficile toxin was negative. OBJECTIVE FINDINGS: VITAL SIGNS: Blood pressure today is 115/64 mmHg, oxygen saturation 96% on room air, temperature 97.2 degrees Fahrenheit, pulse 81 and regular. HEENT: Head is without trauma. Pupils are reactive. Sclerae nonicteric. Oropharynx clear. NECK: Supple, no bruits. LUNGS: Otherwise clear with good breath sounds. CARDIOVASCULAR: Showed regular heart tones. No rubs. ABDOMEN: Soft. EXTREMITIES: Without edema. NEUROLOGIC: Focally intact. There is still 2+ edema of the lower extremities. LABORATORY DATA: Creatinine is stabilized at 3.2 mg/dL just as yesterday. BUN 16, potassium 3.2 mEq. Sodium 135 mEq. ASSESSMENT: 1. An 80-year-old gentleman with acute on chronic renal failure. 2. Osteomyelitis, right heel. 3. Diarrhea, resolved. Clostridium difficile toxin negative. 4. History of congestive heart failure, compensated. 5. Generalized debilitation. 6. Paroxysmal atrial fibrillation. 7. Type 2 diabetes mellitus. 8. Chronic anticoagulation. PLAN: 1. I will hold off potassium replacement due to his renal failure. We will follow up serial chemistries. 2. Antibiotic has been adjusted due to renal clearance. 3. Another long discussion with his son-in-law, who is a nurse retail marketing manager and . They have not made any decisions. If he wants definitive treatment, Dr. Collins is willing to accept the patient to [place] with a full court press including cardiology consultation, nephrology evaluation and placement of vas Cath, initiation of dialysis and then eventually orthopedic consultation for right [id number]-vxbh amputation. He wants a couple of days to think about this. He has stated yesterday he does not want any further dialysis. NIGEL KIMBLE MD DR: MARIA L/ariana JOB#: [id number] / [id number]
[2020-08-23 15:45] VITALS: BP 168/71
[2020-08-23 19:19] VITALS: BP 168/73
[2020-08-23 22:29] VITALS: BP 134/69
[2020-08-24] MEDS: PIPERACILLIN/TAZOBACTAM 3.375 GM in IV NORMAL SALINE 50ML 50 ML IV SCH ×2 (03:02→14:39)
[2020-08-24 05:16] VITALS: BP 130/63
[2020-08-24] MEDS: NYSTATIN TOPICAL POWDER 15GM BOTTLE. TP SCH ×2 (09:00→21:00)
[2020-08-24 10:58] VITALS: BP 149/75
[2020-08-24] MEDS ORDERED: ONDANSETRON ODT 4 MG TAB.RAPDIS PO PRN (12:15)
[2020-08-24 15:04] VITALS: BP 130/70
[2020-08-24 19:49] VITALS: BP 129/57
--- NOTE | 2020-08-24 20:08 | PN ---
DATE: 08/24/2020 ATTENDING PHYSICIAN: Dr. Kimble. CHIEF COMPLAINT: Weakness. SUBJECTIVE: The patient is alert, still very weak and nonambulatory. He is wanting to go to [place] for more aggressive care including Nephrology consultation and probable dialysis. OBJECTIVE FINDINGS: VITAL SIGNS: His blood pressure today is 149/75, pulse is 84 and regular. He is afebrile. Oxygen saturation is 99% on room air. HEENT: Head is without trauma. Pupils are reactive. Sclerae are nonicteric. Oropharynx is clear. NECK: Supple. No bruits identified. LUNGS: Good breath sounds. Diminished breath sounds at the bases. CARDIOVASCULAR: Showed distant heart tones. No gallops, no rubs. ABDOMEN: Soft, no guarding. EXTREMITIES: Showed 3+ edema extending all the way to the thighs. The right ankle and leg wound is dressed. ASSESSMENT: 1. An 80-year-old gentleman with urcsk-[id number] renal failure. 2. Osteomyelitis, right heel. 3. Diarrhea has resolved. 4. Anorexia and decreased appetite. 5. Congestive heart failure, compensated. 6. Generalized debilitation. 7. Paroxysmal atrial fibrillation. 8. Type 2 diabetes. 9. Chronic anticoagulation. PLAN: 1. He is agreeable to go to [facility] for nephrology consultation and dialysis. Cardiology consultation and orthopedic evaluation. We are waiting for a bed. 2. Antibiotic dose has been adjusted. 3. Meds reviewed. 4. We will transfer him. Dr. Collins is aware of the case and knows him, and we will accept the patient to [facility]. NIGEL KIMBLE MD DR: MARIA L/ariana JOB#: [id number] / [id number]
[2020-08-24] MEDS: LACTOBACILLUS RHAMNOSUS GG 1 CAPSULE. PO SCH (20:16)
[2020-08-24] MEDS: METOPROLOL TART IMMED RELEASE 50 MG TABLET PO SCH (20:16)
[2020-08-24] MEDS: APIXABAN 5 MG TABLET. PO SCH (20:17)
[2020-08-24] MEDS ORDERED: ATORVASTATIN CALCIUM 20 MG TABLET PO SCH (21:00)
[2020-08-25] MEDS: PIPERACILLIN/TAZOBACTAM 3.375 GM in IV NORMAL SALINE 50ML 50 ML IV SCH ×2 (03:05→15:19)
[2020-08-25 05:18] VITALS: BP 153/78
[2020-08-25] MEDS: LACTOBACILLUS RHAMNOSUS GG 1 CAPSULE. PO SCH (07:58)
[2020-08-25] MEDS: APIXABAN 5 MG TABLET. PO SCH (07:59)
[2020-08-25] MEDS: METOPROLOL TART IMMED RELEASE 50 MG TABLET PO SCH (07:59)
[2020-08-25] MEDS: NYSTATIN TOPICAL POWDER 15GM BOTTLE. TP SCH (08:03)
[2020-08-25] MEDS ORDERED: ASCORBIC ACID 500 MG TABLET PO SCH (09:00)
[2020-08-25] MEDS ORDERED: LINAGLIPTIN 5 MG TABLET PO SCH (09:00)
[2020-08-25 10:53] VITALS: BP 110/65
[2020-08-25 13:12] LABS: HEMATOCRIT 32.9 % (39.0-53.0); HEMOGLOBIN 10.5 g/dL (13.0-17.5); RED BLOOD COUNT 4.04 x10^6/uL (4.30-5.70); RED CELL DISTRIBUTION WIDTH 16.4 % (11.5-14.5); WHITE BLOOD COUNT 5.5 x10^3/uL (4.0-11.0)
[2020-08-25 13:20] LABS: CALCIUM 7.8 mg/dL (8.5-10.1); GFR 20.2; POTASSIUM 3.2 mmol/L (3.5-5.1)
[2020-08-25 13:26] LABS: ALBUMIN 1.6 g/dL (3.4-5.0); ALBUMIN/GLOBULIN RATIO 0.5 (1.0-1.7); TOTAL BILIRUBIN 0.3 mg/dL (0.2-1.0); TOTAL PROTEIN 4.9 g/dL (6.4-8.2)
[2020-08-25 15:11] VITALS: BP 130/66
--- NOTE | 2020-08-25 16:04 | RAD ---
EXAM: CHEST AP ONLY 08/25/2020 2:00 PM CLINICAL INDICATION:Follow-up COMPARISON:Chest radiograph 08/09/2020 TECHNIQUE:AP upright view the chest FINDINGS:A right PICC is unchanged. A single-lead pacemaker is unchanged. There are median sternotomy wires. Multiple other wires overlie the patient. Cardiomegaly is unchanged. The lungs are well-expanded. A calcified granuloma is again seen in the right upper lobe. There are mild hazy opacities in the lung bases. No focal consolidation. No pneumothorax. No acute osseous abnormality. IMPRESSION:Increased hazy opacities in the lung bases, which could be related to small pleural effusions or mild pulmonary edema. Electronically signed by: Shantell Waldrop MD (08/25/2020 4:01 PM) [id number]
--- NOTE | 2020-08-25 16:44 | DS ---
DATE OF DISCHARGE: 08/25/2020 DISCHARGE TRANSFER SUMMARY HOSPITAL COURSE: The patient is an 80-year-old male patient who was admitted on 08/20/2020 as a transfer from [facility] with acute on chronic renal failure, some arthritis of the right heel, diarrhea that has resolved. He was basically continued on IV antibiotic and we finally managed to get a bed for him as he was accepted at [facility]. PHYSICAL EXAMINATION: GENERAL: When I saw him this afternoon, he was resting flat, comfortably in bed, in no apparent respiratory distress. No pallor, jaundice, cyanosis or thyromegaly. No jugular venous distention. He has bilateral lower limb edema. VITAL SIGNS: His heart rate was 70, blood pressure was 130/66, temperature was 97.5, respiratory rate was 20, and oxygen saturation was 97% on room air. HEAD, EYES, EARS, NOSE AND THROAT: Showed normocephalic, atraumatic. NECK: Supple. HEART: Normal first and second heart sounds. No gallop or murmur. CHEST: Clear to auscultation. No crepitation or rhonchi. ABDOMEN: Distended, soft, nontender. NEUROLOGIC: He was grossly intact. EXTREMITIES: He has right heel wound covered with dressing. His intake was 1420, output was 425. LABORATORY DATA: This evening showed a white cell count of 5500, hemoglobin 10, hematocrit 33, MCV 81 and platelet count of 73,000. His chemistry showed a serum sodium of 134, potassium 3.2, chloride 103, bicarbonate 20, anion gap of 11, BUN 15, creatinine 3, estimated GFR was 20 mL per minute. His glucose 195, calcium was 7.8. Total bilirubin, AST, ALT were normal. Alkaline phosphatase slightly elevated. Total protein was 4.9, albumin was 1.6. DISCHARGE MEDICATIONS: He was discharged and transferred to [facility] to continue on ascorbic acid 500 mg once a day, linagliptin 5 mg once a day, diltiazem 180 mg once a day, lactobacillus rhamnosus twice a day, atorvastatin calcium 40 mg at bedtime, metoprolol tartrate 50 mg twice a day, apixaban 5 mg twice a day, ondansetron 4 mg every 4 hours as needed, nystatin powder applied topically twice a day, morphine sulfate 30 mg every 2 hours, piperacillin and tazobactam 3.375 g IV q. 12 hourly. FINAL DISCHARGE DIAGNOSES: 1. Right heel osteomyelitis. 2. Acute on chronic kidney injury. 3. Type 2 diabetes mellitus. 4. Paroxysmal atrial fibrillation. 5. Congestive heart failure. Plan is to consult the Infectious Disease specialist, the manager transit as well as the wound care team, and try out person. ERICK NOLAN MD DR: FABRIZIO/ariana JOB#: [id number] / [id number]
--- NOTE | 2020-08-25 21:06 | PN ---
DATE: 08/25/2020 SUBJECTIVE: The patient is resting flat, comfortably in bed, in no apparent distress. On questioning him, he denied any complaint. Nursing staff did not voice any concerns that he has generally uneventful night. PHYSICAL EXAMINATION: GENERAL: When I examined him this morning, he looked pale. No jaundice, cyanosis, or thyromegaly. No jugular venous distension, has mild bilateral lower limb edema. VITAL SIGNS: His heart rate was 70, blood pressure was 110/65, temperature 97.6, respiratory rate was 20, and oxygen saturation was 98% on room air. HEAD, EYES, EARS, NOSE AND THROAT: Showed normocephalic, atraumatic. NECK: Supple. HEART: Showed normal first and second heart sounds. No gallop, rub or murmur. CHEST: Clear to auscultation. No crepitation or rhonchi. ABDOMEN: Distended, soft, nontender. No guarding or rigidity. No organomegaly. All hernial orifice intact. Bowel sounds normal. NEUROLOGIC: He is awake, alert, responding appropriately. All cranial nerves are intact. He moves upper extremities to much good extent than lower extremities. He has wounds in the right heel that are covered with dressing. His intake over the last 24 hours was 1420, output was 425. LABORATORY DATA: His lab work this morning showed a white cell count 5500, hemoglobin 10.5, hematocrit 33, MCV 81 and platelet count of 73,000. His chemistry showed a serum sodium 134, potassium 3.2, chloride 103, bicarbonate 20, anion gap of 11, BUN 15, creatinine 3, estimated GFR was 20 mL per minute. His glucose was 95, calcium was 7.8. Total bilirubin, AST, ALT normal. Alkaline phosphatase slightly elevated. Total protein 4.9, albumin was 1.6. Urinalysis showed that he has large amount of leukocyte esterase, more than 40 wbc's. His Clostridium difficile toxin was negative and his coronavirus by PCR was not detectable. ASSESSMENT: 1. An 80-year-old gentleman with acute on chronic kidney injury. 2. Osteomyelitis of the right heel. 3. Diarrhea that has resolved. 4. Anorexia and decreased appetite. 5. Congestive heart failure. 6. Generalized debility. 7. Paroxysmal atrial fibrillation. 8. Type 2 diabetes mellitus. 9. Chronic anticoagulation. PLAN: To await for the transfer to [facility] as the patient is clearly in congestive heart failure and he has acute kidney injury. He has also osteomyelitis of the right heel. We will obviously consult all these subspecialties and decide whether he is really a candidate for any aggressive treatment. ERICK NOLAN MD DR: FABRIZIO/ariana JOB#: [id number] / [id number]
== END 2020-08-25 18:38 | disposition short-term general hospital (02) | DRG 637 ==
LOC: ER 19:01 → 1 SOUTH 22:40
PROVIDERS: ADMIT Hospitalist; ATTEND Internal Medicine
DX: E11.69 Type 2 diabetes mellitus with other specified complication (principal); I50.33 Acute on chronic diastolic (congestive) heart failure; M86.18 Other acute osteomyelitis, other site; I13.0 Hypertensive heart and chronic kidney disease with heart failure and stage 1 through stage 4 chronic kidney disease, or unspecified chronic kidney disease; E44.1 Mild protein-calorie malnutrition; N17.9 Acute kidney failure, unspecified; E86.0 Dehydration; E11.22 Type 2 diabetes mellitus with diabetic chronic kidney disease; N18.9 Chronic kidney disease, unspecified; E78.00 Pure hypercholesterolemia, unspecified; I25.10 Atherosclerotic heart disease of native coronary artery without angina pectoris; I48.0 Paroxysmal atrial fibrillation; E11.21 Type 2 diabetes mellitus with diabetic nephropathy; J44.9 Chronic obstructive pulmonary disease, unspecified; Z74.01 Bed confinement status; Z79.01 Long term (current) use of anticoagulants; Z95.1 Presence of aortocoronary bypass graft; M19.90 Unspecified osteoarthritis, unspecified site; R19.7 Diarrhea, unspecified; Z20.828 Contact with and (suspected) exposure to other viral communicable diseases; Z68.27 Body mass index [BMI] 27.0-27.9, adult
CPT/HCPCS: 36415; 71045; 80048; 80053; 81001; 85025; 85027; 87086; 87106; 87493; 96361; 96374; J2270; J2405; J2543; Q0162; U0003; 99285-25; J7030